=== PATIENT | female | born 1960 | race African-American/Black ===

== ENCOUNTER 2016-07-10 16:27 | Inpatient (IN) ==
--- NOTE | 2016-07-10 17:21 | PROVIDER DOCUMENTATION ---
Addendum entered and electronically signed by Toño Lowe PA 21:22: Progress - CONSULTS/PCP/HOSPITALIST Notification #2 Consult: Dr. Beltrán Time Discussed: 21:22 Consult Disposition: other (Will consult on case in the AM) Original Note: HPI-General Adult - General Source: patient - History of Present Illness -Gen Adult Nature of Presenting Problems: Pt is 56 y/o F presents to the ED with AMS. Pt's mother states change in Pt mental status. Pt's mother states Pt is now breathing through her mouth when she normally breathes through her nose. Pt's mother states Pt slide off of bed side toilet and into floor. Location of Pain/Injury: reports: none Pain Radiation: reports: no radiation Quality of Pain: reports: none Onset/Duration: reports: just prior to arrival Timing: reports: still present Context/Activities at Onset: reports: none Modifying Factors: improves with: nothing Associated Symptoms: reports: diaphoresis, other (pale) Similar Symptoms Previously?: No Recently seen or treated by another doctor?: No <Heather Tavarez - Last Filed: 07/10/16 17:55> <Toño Lowe - Last Filed: 07/10/16 20:45> - General Chief Complaint: Altered Mental Status Stated Complaint: AMS, FALL THIS AM Time Seen by Provider: 07/10/16 16:51 Allergies/Adverse Reactions: Patient Allergies Allergy/AdvReac Type Severity Reaction Status Date / Time latex Allergy Intermediate RASH Verified 07/10/16 16:37 Home Medications: Nortriptyline [Pamelor] 10 mg PEG HS 01/11/14 Aspirin EC 81 mg PEG DAILY 07/22/14 Levetiracetam 100 mg PEG BID 07/22/14 Atropine 1% Ophth Soln 2 drop ORDERED Q4H PRN PRN 04/17/15 Metoclopramide [Reglan Liquid] 5 mg PEG TID 04/17/15 Dextromethorphan HBr/Quinidine [Nuedexta 20-10 mg Capsule] 1 each PEG BID Lisinopril 40 mg PEG BID 03/15/16 Amlodipine Besylate 5 mg PEG BID 04/08/16 Baclofen 10 mg PEG HS 04/08/16 Multivitamins/Minerals [Centrum Tablet] 1 each PEG DAILY 04/08/16 Polyethylene Glycol 3350 [Miralax] 17 gm PEG DAILY 04/08/16 Review of Systems - Adult - REVIEW OF SYSTEMS - ADULT ROS:: unobtainable per condition Constitutional: reports: no symptoms reported Eyes: reports: no symptoms reported Ears, Nose, Mouth & Throat: reports: no symptoms reported Cardiovascular: reports: irregular heart rate (tachy). denies: chest pain, heart murmur Respiratory: reports: no symptoms reported Gastrointestinal: reports: no symptoms reported Genitourinary: reports: no symptoms reported Musculoskeletal: reports: no symptoms reported Integumentary: reports: no symptoms reported Neurological: reports: no symptoms reported Psychiatric: reports: no symptoms reported Endocrine: reports: no symptoms reported Hematologic/Lymphatic: reports: no symptoms reported Allergic/Immunologic: reports: no symptoms reported All Other Systems: Reviewed and Negative <Heather Tavarez - Last Filed: 07/10/16 17:55> Past History - Adult - PAST MEDICAL HISTORY-ADULT Review of Records: reports: Nursing Assessment Review, Medications Reviewed, Social history reviewed & non-contributory. Major Childhood Illnesses: reports: denies history Cardiovascular: reports: HTN, hyperlipidemia Respiratory: reports: denies history Gastrointestinal: reports: GERD Obstetrical/Gynecological: reports: denies history Genitourinary: reports: denies history Musculoskeletal: reports: denies history Neurological: reports: cancer/tumor, CVA, Seizures/Epilepsy Endocrine/Immune: reports: cancer (BRAIN ) Other Conditions: reports: denies history - PRIOR SURGERIES/PROCEDURES Surgical/Procedure History: reports: - IMMUNIZATION STATUS Childhood Immunizations: See Nurse Assessment Flu Vaccine: See Nurse Assessment - FAMILY HISTORY Family History: reviewed, not pertinent - SOCIAL HISTORY Smoking: denies Substance Use: denies Living Situation: family <Heather Tavarez - Last Filed: 07/10/16 17:55> Physical Exam-General - PHYSICAL EXAM-ADULT Initial Vital Signs Reviewed: Yes - CONSTITUTIONAL General Appearance: appears well, alert, no apparent distress - EYES Eyes: PERRL/EOMI, pink conjunctivae, fundi clear, no AV nicking - HEAD, EARS, NOSE, MOUTH & THROAT HENMT: normocephalic/atraumatic, moist mucous membranes, normal ENT inspection, TMs normal, pharynx normal - NECK Neck: non-tender, full range of motion, supple, normal inspection - RESPIRATORY Respiratory: chest non-tender, lungs clear, normal breath sounds, no pleuratic chest pain, no respiratory distress, no accessory muscle use - CARDIOVASCULAR Cardiovascular: normal peripheral pulses, no edema, no gallop, no JVD, no murmur , tachycardia - GASTROINTESTINAL (ABDOMEN) Abdominal Exam: normal bowel sounds, non tender, soft, no organomegaly, no pulsatile mass - LYMPHATIC Lymphatic: no adenopathy - MUSCULOSKELETAL Back Exam: normal inspection, no CVA tenderness, no vertebral tenderness Extremity: normal range of motion, non-tender, normal gait, normal inspection, no pedal edema, no calf tenderness, normal capillary refill, pelvis stable - SKIN Integumentary: normal turgor, warm/dry, pallor - NEUROLOGIC Neurologic: abnormal cerebellar tests, 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, abnormal gait, focal weakness - PSYCHIATRIC Psych/Mental Status: negative: normal mood/affect <Heather Tavarez - Last Filed: 07/10/16 17:55> Progress - PLAN OF CARE/RESULTS Progress/Plan/Lab Results: Orders Category Date Time Status KNEE 1-2 VIEWS-LEFT [RAD] Stat Exams 07/10/16 17:18 Ordered KNEE 1-2 VIEWS-RIGHT [RAD] Stat Exams 07/10/16 17:18 Ordered cxr [CHEST-1 VIEW] [RAD] Stat Exams 07/10/16 17:19 Ordered CBC WITH ELECTRONIC DIFF [HEME] Stat Lab 07/10/16 17:17 Uncollected CMP [COMPREHENSIVE METABOLIC PANEL] [CHEM] Stat Lab 07/10/16 17:17 Uncollected Ddimer [D-DIMER] [CHEM] Stat Lab 07/10/16 17:22 Uncollected UA NIMS W/REFLEX CULT [URINALYSIS] Stat Lab 07/10/16 17:17 Uncollected Vital Signs - 24 hr 07/10/16 16:28 Temperature 97.3 F L Pulse Rate 130 H Respiratory 24 Rate Blood Pressure 96/57 O2 Sat by Pulse 98 Oximetry - CHANGE OF SHIFT REPORT (ED Provider) Report Given and Care Transferred to:: Dr. Poole Time of Transfer: 17:56 Items Pending: Labs, XRAY Results <Heather Tavarez - Last Filed: 07/10/16 17:55> - PLAN OF CARE/RESULTS Progress/Plan/Lab Results: Laboratory Tests 07/10/16 07/10/16 07/10/16 18:30 18:30 18:30 WBC 19.95 H RBC 3.47 L Hgb 8.9 L Hct 30.0 L MCV 86.5 MCH 25.6 L MCHC 29.7 L RDW Std Deviation 16.2 H Plt Count 251 MPV Not Reportable Immature Gran % (Auto) 0.5 Neut % (Auto) 87.3 H Lymph % (Auto) 6.6 L Bowie % (Auto) 5.4 Eos % (Auto) 0.1 Baso % (Auto) 0.1 Immature Gran # (Auto) 0.10 H Neut # (Auto) 17.43 H Lymph # (Auto) 1.32 Bowie # (Auto) 1.08 H Eos # (Auto) 0.01 Baso # (Auto) 0.01 PT INR PTT (Actin FS) D-Dimer > 21.00 H Sodium 145 Potassium 2.9 L Chloride 105 Carbon Dioxide 20 L Anion Gap 20 BUN 21 Creatinine 1.2 H Estimated GFR/1.73 m2 56 BUN/Creatinine Ratio 18 Glucose 184 H Calculated Osmolality 296 Calcium 8.7 L Magnesium Total Bilirubin 0.36 AST 32 H ALT 29 Alkaline Phosphatase 189 H Creatine Kinase Troponin T Total Protein 6.4 Albumin 3.1 L Globulin 3.3 Albumin/Globulin Ratio 0.9 Plasma Lactate 07/10/16 07/10/16 07/10/16 18:30 18:30 18:30 WBC RBC Hgb Hct MCV MCH MCHC RDW Std Deviation Plt Count MPV Immature Gran % (Auto) Neut % (Auto) Lymph % (Auto) Bowie % (Auto) Eos % (Auto) Baso % (Auto) Immature Gran # (Auto) Neut # (Auto) Lymph # (Auto) Bowie # (Auto) Eos # (Auto) Baso # (Auto) PT 12.0 H INR 1.13 PTT (Actin FS) 23.6 D-Dimer Sodium Potassium Chloride Carbon Dioxide Anion Gap BUN Creatinine Estimated GFR/1.73 m2 BUN/Creatinine Ratio Glucose Calculated Osmolality Calcium Magnesium 2.2 Total Bilirubin AST ALT Alkaline Phosphatase Creatine Kinase 106 Troponin T 0.130 H Total Protein Albumin Globulin Albumin/Globulin Ratio Plasma Lactate 07/10/16 18:30 WBC RBC Hgb Hct MCV MCH MCHC RDW Std Deviation Plt Count MPV Immature Gran % (Auto) Neut % (Auto) Lymph % (Auto) Bowie % (Auto) Eos % (Auto) Baso % (Auto) Immature Gran # (Auto) Neut # (Auto) Lymph # (Auto) Bowie # (Auto) Eos # (Auto) Baso # (Auto) PT INR PTT (Actin FS) D-Dimer Sodium Potassium Chloride Carbon Dioxide Anion Gap BUN Creatinine Estimated GFR/1.73 m2 BUN/Creatinine Ratio Glucose Calculated Osmolality Calcium Magnesium Total Bilirubin AST ALT Alkaline Phosphatase Creatine Kinase Troponin T Total Protein Albumin Globulin Albumin/Globulin Ratio Plasma Lactate 7.8 H Orders Category Date Time Status Melissa Cath Insertion ORDERED Care 07/10/16 19:41 Active ANGIOGRAM/PULMONARY ARTERIES [CT] Stat Exams 07/10/16 19:37 Taken HEAD W/O CONTRAST [CT] Stat Exams 07/10/16 17:22 Taken KNEE 1-2 VIEWS-LEFT [RAD] Stat Exams 07/10/16 17:18 Taken KNEE 1-2 VIEWS-RIGHT [RAD] Stat Exams 07/10/16 17:18 Taken cxr [CHEST-1 VIEW] [RAD] Stat Exams 07/10/16 17:19 Taken ABG [RESP] Routine Lab 07/10/16 20:40 Ordered BLOOD CULTURE [BLDCUL] Stat Lab 07/10/16 18:30 Ordered CBC WITH ELECTRONIC DIFF [HEME] Stat Lab 07/10/16 18:30 Completed CK PROFILE [SP CHEM] Stat Lab 07/10/16 18:30 Completed CMP [COMPREHENSIVE METABOLIC PANEL] [CHEM] Stat Lab 07/10/16 18:30 Completed Ddimer [D-DIMER] [CHEM] Stat Lab 07/10/16 18:30 Completed LACTATE, PLASMA [CHEM] Stat Lab 07/10/16 18:30 Completed LACTATE, PLASMA [CHEM] Stat Lab 07/10/16 20:16 Uncollected MAGNESIUM [CHEM] Stat Lab 07/10/16 18:30 Completed PROTIME WITH INR [COAG] Stat Lab 07/10/16 18:30 Completed PTT [COAG] Stat Lab 07/10/16 18:30 Completed TROPONIN T Stat Lab 07/10/16 18:30 Completed UA NIMS W/REFLEX CULT [URINALYSIS] Stat Lab 07/10/16 17:17 Uncollected URINE DRUG SCREEN Stat Lab 07/10/16 18:08 Uncollected 0.9% Sodium Chloride Inj [Ns] 1,000 ml Med 07/10/16 19:45 Active Potassium Chloride 10 meq IV 1,000 mls/hr 0.9% Sodium Chloride Inj [Ns] 1,000 ml Med 07/10/16 17:46 Discontinued IV 999 mls/hr 0.9% Sodium Chloride Inj [Ns] 1,000 ml Med 07/10/16 19:40 Discontinued IV 999 mls/hr Piperacil/Tazobact 3.375 gm/Ns [Zosyn 3.375 gm/Ns] 50 Med 07/10/16 19:40 Discontinued ml IV NOW Vancomycin 1 gm/Ns 250 ml Med 07/10/16 19:40 Discontinued IV NOW Vital Signs Temp Pulse Resp BP Pulse Ox 07/10/16 20:32 106 H 18 86/72 99 07/10/16 17:25 121 H 16 96/57 98 07/10/16 16:28 97.3 F L 130 H 24 96/57 98 latex Allergy (Intermediate, Verified 07/10/16 16:37) RASH Nortriptyline [Pamelor] 10 mg PEG HS 01/11/14 Aspirin EC 81 mg PEG DAILY 07/22/14 Levetiracetam 100 mg PEG BID 07/22/14 Atropine 1% Ophth Soln 2 drop ORDERED Q4H PRN PRN 04/17/15 Metoclopramide [Reglan Liquid] 5 mg PEG TID 04/17/15 Dextromethorphan HBr/Quinidine [Nuedexta 20-10 mg Capsule] 1 each PEG BID Lisinopril 40 mg PEG BID 03/15/16 Amlodipine Besylate 5 mg PEG BID 04/08/16 Baclofen 10 mg PEG HS 04/08/16 Multivitamins/Minerals [Centrum Tablet] 1 each PEG DAILY 04/08/16 Polyethylene Glycol 3350 [Miralax] 17 gm PEG DAILY 04/08/16 Omeprazole/Sodium Bicarbonate [Zegerid 40 mg Packet] 1 each PO DAILY #30 packet 04/09/16 I&O 07/09/16 07/10/16 07/11/16 06:59 06:59 06:59 Output Total 0 Balance 0 Laboratory 07/10/16 07/10/16 07/10/16 18:30 18:30 18:30 WBC RBC Hgb Hct MCV MCH MCHC RDW Std Deviation Plt Count MPV Immature Gran % (Auto) Neut % (Auto) Lymph % (Auto) Bowie % (Auto) Eos % (Auto) Baso % (Auto) Immature Gran # (Auto) Neut # (Auto) Lymph # (Auto) Bowie # (Auto) Eos # (Auto) Baso # (Auto) PT 12.0 H INR 1.13 PTT (Actin FS) 23.6 D-Dimer Sodium Potassium Chloride Carbon Dioxide Anion Gap BUN Creatinine Estimated GFR/1.73 m2 BUN/Creatinine Ratio Glucose Calculated Osmolality Calcium Magnesium Total Bilirubin AST ALT Alkaline Phosphatase Creatine Kinase Troponin T 0.130 H Total Protein Albumin Globulin Albumin/Globulin Ratio Plasma Lactate 7.8 H 07/10/16 07/10/16 07/10/16 18:30 18:30 18:30 WBC RBC Hgb Hct MCV MCH MCHC RDW Std Deviation Plt Count MPV Immature Gran % (Auto) Neut % (Auto) Lymph % (Auto) Bowie % (Auto) Eos % (Auto) Baso % (Auto) Immature Gran # (Auto) Neut # (Auto) Lymph # (Auto) Bowie # (Auto) Eos # (Auto) Baso # (Auto) PT INR PTT (Actin FS) D-Dimer > 21.00 H Sodium 145 Potassium 2.9 L Chloride 105 Carbon Dioxide 20 L Anion Gap 20 BUN 21 Creatinine 1.2 H Estimated GFR/1.73 m2 56 BUN/Creatinine Ratio 18 Glucose 184 H Calculated Osmolality 296 Calcium 8.7 L Magnesium 2.2 Total Bilirubin 0.36 AST 32 H ALT 29 Alkaline Phosphatase 189 H Creatine Kinase 106 Troponin T Total Protein 6.4 Albumin 3.1 L Globulin 3.3 Albumin/Globulin Ratio 0.9 Plasma Lactate 07/10/16 18:30 WBC 19.95 H RBC 3.47 L Hgb 8.9 L Hct 30.0 L MCV 86.5 MCH 25.6 L MCHC 29.7 L RDW Std Deviation 16.2 H Plt Count 251 MPV Not Reportable Immature Gran % (Auto) 0.5 Neut % (Auto) 87.3 H Lymph % (Auto) 6.6 L Bowie % (Auto) 5.4 Eos % (Auto) 0.1 Baso % (Auto) 0.1 Immature Gran # (Auto) 0.10 H Neut # (Auto) 17.43 H Lymph # (Auto) 1.32 Bowie # (Auto) 1.08 H Eos # (Auto) 0.01 Baso # (Auto) 0.01 PT INR PTT (Actin FS) D-Dimer Sodium Potassium Chloride Carbon Dioxide Anion Gap BUN Creatinine Estimated GFR/1.73 m2 BUN/Creatinine Ratio Glucose Calculated Osmolality Calcium Magnesium Total Bilirubin AST ALT Alkaline Phosphatase Creatine Kinase Troponin T Total Protein Albumin Globulin Albumin/Globulin Ratio Plasma Lactate Will admit for sepsis. - XRAY 1 XRAY: Right XRAY Study: Knee XRAY Interpretation: distal femur fx 2 XRAY: Left XRAY Study: Knee XRAY Interpretation: proximal tibial fx 3 XRAY Study: Chest XRAY Interpretation: nad - CT/MRI 1 CT Study: Head Comparison with other Films: no changes CT Results: NAP 2 CT Study: Thorax CT Results: Mild atelectasis; no PE - CONSULTS/PCP/HOSPITALIST Notification #1 *Consult/PCP/Hospitalist*: Dr. Mendez Time Discussed: 20:43 Consult Disposition: Admit <Toño Lowe - Last Filed: 07/10/16 20:45> Departure <Heather Tavarez - Last Filed: 07/10/16 17:55> - Departure Time of Disposition Order: 20:43 Certified Medical Emergency: Emergent <Toño Lowe - Last Filed: 07/10/16 20:45> - Departure DIAGNOSIS: Sepsis Qualifiers: Sepsis type: sepsis due to unspecified organism Qualified Code(s): A41.9 - Sepsis, unspecified organism Altered mental state Qualifiers: Altered mental status type: unspecified Qualified Code(s): R41.82 - Altered mental status, unspecified Femur fracture, right Qualifiers: Encounter type: initial encounter Femur location: distal Fracture type: closed Fracture morphology: unspecified fracture morphology Qualified Code(s): S72.401A - Unspecified fracture of lower end of right femur, initial encounter for closed fracture Tibial plateau fracture, left Qualifiers: Encounter type: initial encounter Fracture type: closed Qualified Code(s): S82.142A - Displaced bicondylar fracture of left tibia, initial encounter for closed fracture Disposition: ADMITTED INPATIENT 09 Condition: Stable Attestation - Scribe Verification/Attestation Scribe:: Heather Tavarez Acting as Scribe for:: Rm Breaux Scribe documention review:: This chart was documented by a scribe and accurately reflects the service the provider performed and the decisions made by the provider. - Scribe Verification/Attestation #2 Shift Change Time: 17:56 Scribe Name: Rita Abdalla Acting as Scribe for:: Hudson Rickey Lis <Heather Tavarez - Last Filed: 07/10/16 17:55> - Physician/ CORINA Attestation Patient care was provided by Advanced Practice Provider:: Yes Advanced Practice Provider:: Toño Lowe Advanced Practice Provider documentation review:: The Mid-level provider documentation, treatment plan and medical decision making was reviewed by the physician who agrees with all treatment and medical decision making by the MLP. The physician spent face to face time with patient:: Yes <Toño Lowe - Last Filed: 07/10/16 20:45> Physician Attestation
[2016-07-10] MEDS ORDERED: NS 1,000 ML IV ONE ×3 (17:46→22:46)
[2016-07-10 18:59] LABS: BASO% 0.1 % (0.0-0.8); EOS# 0.01 X1000 (0.0-0.7); EOS% 0.1 % (0.0-10.0); HEMOGLOBIN 8.9 g/dL (12.0-16.0); IMM GRAN% 0.5 % (0.0-0.5); LYMPH# 1.32 X1000 (1.2-3.4); LYMPH% 6.6 % (20.5-51.1); MANUAL DIFF NEEDED? NO; MCH 25.6 PG (27-31); MCHC 29.7 g/dL (33-37); MCV 86.5 FL (81-99); MONO# 1.08 X1000 (0.11-0.59); MONO% 5.4 % (1.7-9.3); NEUT% 87.3 % (42.2-75.2); PLT 251 X1000 (130-400); RBC 3.47 XMIL (4.2-5.4)
[2016-07-10 19:10] LABS: INR 1.13; PTT 23.6 Seconds (22.0-36.0)
[2016-07-10 19:13] LABS: ALBUMIN 3.1 g/dL (3.5-5.0); CALCIUM 8.7 mg/dL (8.8-10.2); POTASSIUM 2.9 mmol/L (3.5-5.1); TOTAL BILIRUBIN 0.36 mg/dL (0.20-1.00); TOTAL PROTEIN 6.4 g/dL (6.3-8.3)
[2016-07-10 19:14] LABS: MAGNESIUM 2.2 mg/dL (1.5-2.7)
[2016-07-10] MEDS ORDERED: VANCOMYCIN 1 GM/NS 250 ML IV ONE (19:40)
[2016-07-10] MEDS ORDERED: ZOSYN 3.375 GM/NS 50 ML IV ONE (19:40)
[2016-07-10] MEDS ORDERED: POTASSIUM CHLORIDE 10 MEQ in NS 1,000 ML IV SCH (19:45)
[2016-07-10 21:27] LABS: ALLEN TEST YES; BE -1.2 mmoll (-3.0-3.0); BLOOD TYPE ARTERIAL; DRAW SITE R RADIAL; METHB 1.7 % (0.0-1.5); PCO2(98.6) 22 mmHg (35-45); PO2(98.6) 135 mmHg (60-100); SAMPLE BLOOD; SAO2 99.5 % (95.0-100.0); THB 7.9 g/dL (11.5-17.4)
[2016-07-10 21:29] LABS: MODALITY ROOM AIR
[2016-07-10 21:30] LABS: pH(98.6) 7.57 (7.35-7.45)
[2016-07-10 21:31] LABS: BILIRUBIN URINE NEGATIVE (NEGATIVE); BLOOD URINE TRACE-INTACT (NEGATIVE); CLARITY SLIGHTLY CLOUDY (CLEAR); COLOR YELLOW; GLUCOSE URINE NEGATIVE (NEGATIVE); LEUKOCYTES URINE NEGATIVE (NEGATIVE); NITRITE URINE NEGATIVE (NEGATIVE); PH URINE 5.5; PROTEIN URINE 100 mg/dL (NEGATIVE); SP GRAVITY URINE 1.015; URINE SOURCE CATH
[2016-07-10 21:35] LABS: URINE CULTURE NEEDED? YES; URINE RBC <10 /HPF (<10)
[2016-07-10 21:36] LABS: URINE EPITHELIAL CELLS >10 /HPF (<10)
[2016-07-10 21:46] LABS: UR AMPHETAMINES QUAL NONE DETECTED (NONE DETECT); UR BARBITUATES QUAL NONE DETECTED (NONE DETECT); UR BENZODIAZEPIN QUAL NONE DETECTED (NONE DETECT); UR CANNABINOIDS QUAL NONE DETECTED (NONE DETECT); UR COCAINE QUAL NONE DETECTED (NONE DETECT); UR METHADONE QUAL NONE DETECTED (NONE DETECT); UR OPIATES QUAL NONE DETECTED (NONE DETECT); UR OXYCODONE QUAL NONE DETECTED (NONE DETECT); UR PCP QUAL NONE DETECTED (NONE DETECT)
--- NOTE | 2016-07-10 22:20 | HISTORY AND PHYSICAL ---
PRIMARY CARE PHYSICIAN: Felton Ferguson Jr., MD REASON FOR ADMISSION: Diaphoresis, weakness and pallor. HISTORY OF PRESENT ILLNESS: Ms. Nancy Jean-Baptiste is a 56-year-old lady with past medical history of prior brain cancer status post surgery, postop seizures, postop CVA, hypertension, who is pretty much nonverbal and contracted. The patient was brought in today by her mother with an ambulance because the mother reports that the patient's paid caregiver stated that shortly after transferring the patient from bed to a bedside commode, the patient slid and fell and landed on her knee. By the time the mother got there, she noted her daughter was on her back and they managed to get a Erick lift to get her back on the bed. Shortly thereafter, she noted her daughter was diaphoretic and very pale and she called one of her friends to confirm her suspicious that something was off. When her friend came by, she noted that she concurred with the mother's assessment and they got the EMS to bring her in. Unfortunately, the patient is unable to verbalize her complaints, but she was diaphoretic, pale and also tachypneic when she came in. Her initial blood pressure was 96/57, heart rate of 121, temperature is 97.3 degrees, respiratory rate was 16. Her O2 saturation was 98%. REVIEW OF SYSTEMS: Could not be obtained for obvious reasons due to the patient's cognitive and verbal status. Mother denies any shortness of breath or cough or diarrhea or blood loss from any site. She did notice, however that before they called EMS that both of the patient's knees were swollen, which the left greater than the right. This concerned the, also. ALLERGIES: Latex. MEDICATIONS: Per her old records, she is on Pamelor 10 mg at bedtime, aspirin 81 mg daily, Keppra 100 mg via PEG tube, atropine ophthalmic eyedrops 2 drops as needed, Reglan 5 mg t.i.d., Norvasc 5 mg b.i.d., lisinopril 40 mg b.i.d., Zegerid 2/40 mg daily, MiraLAX 17 g daily, multivitamin tablets once a day, Bactrim 10 mg at bedtime, and Nuedexta 1 capsule a day. FAMILY HISTORY: Notable for type 2 diabetes in first-degree relatives. No heart disease or cancer. PAST SURGICAL HISTORY: She has had a tumor resection. She has had a herniorrhaphy. PEG tube placement. Cholecystectomy. SOCIAL HISTORY: Does not smoke, drink, or do drugs. Cared for by mother, lives with the mother, totally dependent. LABORATORY WORK: EKG shows sinus tachycardia, LVH. D-dimer was greater than 21. CT abdomen showed atelectasis. Initial lactate was 7.8. Repeat lactate 2 hours was 4.5, PTT is normal. Potassium 2.9. BUN was 20, creatinine 1.2, glucose 184. AST 32, ALT 29, alkaline phosphatase 189, CK is 106, but troponin 0.130. Albumin 3.1, white count 19,009, hemoglobin and hematocrit 9 and 30, platelets 251,000. X-ray showed a right distal femoral fracture and a left proximal tibial plateau fracture. Urinalysis is pending. Blood cultures were drawn. PHYSICAL EXAMINATION: VITAL SIGNS: Blood pressure currently is 160/60, heart rate 106, respirations 18, 99% on room air. GENERAL: She is a middle-aged woman who is nonverbal, laying in bed. Not visually in acute distress. HEENT: Head is normocephalic, atraumatic. She has a flat affect. Her color relatively pale. Eyes, SUSHMA, EOMI. She is anicteric and conjunctivae pale. ENT and oropharyngeal exam could not really assess because patient did not open her mouth, but no signs of cyanosis visualized. I could not really see any exudates at the tip of her tongue. NECK: Supple. No JVD or carotid bruit. No thyromegaly. CHEST: Clear to auscultation. Good air flow from both lung roberson. CARDIOVASCULAR: 1st and 2nd heart sounds heard. No gallops, murmurs, rubs. Rhythm is regular. ABDOMEN: Scaphoid, soft with a PEG tube in the epigastric area. No surrounding erythema or exudates from the PEG tube insertion site. No mass is appreciated. Bowel sounds are hypoactive. RECTAL: Deferred. EXTREMITIES: Slightly some swelling of both knees, left greater than right. No areas of erythema and no excessive warmth. Her distal aspects of her extremities are cooler without pulses distally in lower extremities and they are symmetrical. No color discoloration or cyanosis noted. No clubbing noted. No edema noted. She has a left flexion contracture of the elbow of her left upper extremity and contractures of her left hand. There is an extension contracture of her right upper extremity and she has what appears to be pes cavus of both feet. NEUROLOGICAL: Patient does have a profound left-sided hemiplegia. I did not do a thorough exam because of the patient's fractures and I not want to destabilize them. SKIN: No skin breakdown although I did not examine her sacral area on her back. MUSCULOSKELETAL: See above. ASSESSMENT: 1. Septic shock versus hemorrhagic shock. 2. Hypokalemia. 3. Hypertension. 4. Iatrogenic seizures. 5. History of multiple strokes. 6. Right femoral fracture distal. 7. Left proximal tibial fracture. 8. Possible hemorrhagic anemia. 9. Early acute kidney injury. PLAN: So far unable to get any urine from the patient and we will evaluate this for possible infection. In the interim we will start on broad-spectrum antibiotics i.e. vancomycin and Zosyn. We will do complete blood count, lactate and troponin in 4 hours and modify treatment accordingly depending on our findings. If hematocrit is less than 30, we will transfuse at least 1 unit. Her last hematocrit was 44 in early May. I suspect this patient may have more of a hemorrhagic picture than a septic picture based on the fact that she has bilateral fractures. Her blood pressure has responded very well to boluses and the troponin noted but could have been due to severe coronary insufficiency from hemorrhage from the fractures. She is also notably pale according to the mother and this picture seems to be more of a hemorrhagic picture. I will consult orthopedist, Dr. Beltrán to be notified by the emergency room team about this patient and he will probably see her in the morning. Deep venous thrombosis prophylaxis will be with Sequential Compression Devices as anticoagulants are relatively contraindicated in this patient. We will also check a cortisol level to see if patient has relative adrenal insufficiency to stress. Continue her Keppra by her percutaneous endoscopic gastrostomy tube. Discontinue aspirin for now. CRITICAL CARE TIME: 40 minutes. I spent most of the time answering the mother's questions who is understandably nervous.
[2016-07-10] MEDS ORDERED: VANCOMYCIN IV PER PHARMACY MISC SCH (22:46)
[2016-07-10] MEDS ORDERED: ZOFRAN IV PRN (22:46)
--- NOTE | 2016-07-10 23:50 | ED EKG INTERP ---
EKG Interpretation - EKG Time of EKG reading by physician:: 20:20 EKG Read and Signed by:: Hudson Poole EKG Interpretation (*Must complete 3 of following elements*): Abnormal Rate: 108 Rhythm: sinus tachycardia ST Wave: non-specific ST changes Attestation - Scribe Verification/Attestation Scribe:: Rita Abdalla Acting as Scribe for:: Hudson Poole Scribe documention review:: This chart was documented by a scribe and accurately reflects the service the provider performed and the decisions made by the provider. Physician Attestation - Physician Attestation I, the provider, attest to the following statement:: Hudson Poole Physician documentation Attestation:: This documentation recorded by the scribe accurately reflects the service I personally performed and the decisions made by me.
[2016-07-11] MEDS ORDERED: VANCOMYCIN 650 MG in NS 250 ML IV ONE (02:00)
[2016-07-11 02:27] LABS: HEMATOCRIT 23.3 % (37.0-47.0); MCH 25.5 PG (27-31); PLT 171 X1000 (130-400); RBC 2.74 XMIL (4.2-5.4)
[2016-07-11] MEDS: ZOSYN 3.375 GM/NS 50 ML IV SCH ×4 (04:06→20:16)
--- NOTE | 2016-07-11 06:01 | EKG Report ---
Test Performed on : 07/10/2016 8:20:26 PM Test Reason : No order in [facility] Blood Pressure : / mmHG Vent. Rate : 108 BPM Atrial Rate : 108 BPM P-R Int : 130 ms QRS Dur : 068 ms QT Int : 406 ms P-R-T Axes : 036 027 014 degrees QTc Int : 544 ms Sinus tachycardia. Nonspecific ST and T wave abnormality Abnormal ECG When compared with ECG of 05-JUN-2015 10:08, T wave inversion no longer evident in Anterior leads QT has lengthened Unconfirmed Result
--- NOTE | 2016-07-11 07:54 | CONSULTATION ---
DATE OF CONSULTATION: 07/11/2016 CHIEF COMPLAINT: Fall. HISTORY OF PRESENT ILLNESS: Ms. Reed is a 56-year-old female who presented to the emergency department last night after she had slipped and fallen out of her bed. Family brought her up. She was found to be septic, so she was admitted to the ICU and sepsis protocol was initiated. I also x-rayed her knees since she fell on her knees when the incident happened and she has fractures of bilateral knees and that is why Orthopedics was consulted. Unfortunately, Ms. Reed does not communicate and so she really does not answer any questions and there was no family at bedside this morning when I was there. PAST MEDICAL HISTORY: Brain tumor, previous strokes. PAST SURGICAL HISTORY: G tube. MEDICATIONS: Per the MAR. ALLERGIES: Latex. FAMILY HISTORY: Unable to be obtain. REVIEW OF SYSTEMS: Unable to be obtained. SOCIAL HISTORY: Unable to be obtained. PHYSICAL EXAMINATION: General: A middle-aged female lying in bed, no acute distress. She does not respond to verbal stimuli. Head and Neck: Appears normocephalic, atraumatic. Respirations: Nonlabored. Cardiovascular: Regular rate. Abdomen: Nondistended. Extremity: Bilateral lower extremity exam, looking at her knees, both of them are swollen. She really does not grimace or wince when I palpated around the knees. She does not follow commands to move her toes or to tell me if she can feel sensation, so that part of the physical exam I cannot do. She did have a 2+ DP pulse bilaterally. Her ankles are somewhat plantar flexed. IMAGING: Imaging shows on the right knee, she has a supracondylar femur fracture that is mildly displaced. Overall joint line looks good. Left knee films show a proximal tibia fracture with more of a plateau but the joint line itself looks good and that is minimally displaced. ASSESSMENT: 1. Right supracondylar femur fracture. 2. Left tibial plateau fracture. PLAN: Gathering some history from the nurse and also from the chart, it seems like Ms. Reed really does not weightbear at all. She has to have her family to help lift her to use the bathroom and she really does not follow any commands at this point either. So, since she is a non- ambulator, I would rather treat this nonoperatively. I think she can heal in where she is. So we are going to do bilateral knee immobilizers and then we will continue to monitor things.
[2016-07-11 08:07] LABS: BASO% 0.1 % (0.0-0.8); EOS# 0.02 X1000 (0.0-0.7); EOS% 0.2 % (0.0-10.0); HEMATOCRIT 28.9 % (37.0-47.0); HEMOGLOBIN 8.9 g/dL (12.0-16.0); IMM GRAN# 0.02 X1000 (0.0-0.04); IMM GRAN% 0.2 % (0.0-0.5); LYMPH# 1.71 X1000 (1.2-3.4); LYMPH% 20.9 % (20.5-51.1); MANUAL DIFF NEEDED? YES; MCH 26.6 PG (27-31); MCHC 30.8 g/dL (33-37); MCV 86.3 FL (81-99); MONO# 0.74 X1000 (0.11-0.59); NEUT% 69.6 % (42.2-75.2); PLT 113 X1000 (130-400); RBC 3.35 XMIL (4.2-5.4)
--- NOTE | 2016-07-11 08:20 | Diag Imaging Result Document ---
PROCEDURE NAME: CHEST-1 VIEW - 07/10/2016 AP CHEST: FINDINGS: There are calcified nodes in the right tracheobronchial region. There is no evidence of acute cardiac or pulmonary disease and compared with the previous study of 06/15/2015 there has been no significant change in the appearance of the chest. IMPRESSION: No acute disease.
--- NOTE | 2016-07-11 08:22 | Diag Imaging Result Document ---
PROCEDURE NAME: KNEE 1-2 VIEWS-RIGHT - 07/10/2016 RIGHT KNEE, TWO VIEWS: FINDINGS: There is a supracondylar impacted fracture of the distal femur. There is generalized osteopenia. IMPRESSION: Fracture, distal femur.
--- NOTE | 2016-07-11 08:25 | Diag Imaging Result Document ---
PROCEDURE NAME: KNEE 1-2 VIEWS-LEFT - 07/10/2016 LEFT KNEE, TWO VIEWS: FINDINGS: There is a spiral fracture of the distal shaft of the femur, which appears to extend to the midshaft. There is more displacement in the midshaft region on the lateral view. There is also an apparent impacted fracture of the medial, and possibly the lateral tibial plateau. There is generalized osteopenia. IMPRESSION: Fracture of the femur, as well as the proximal tibia.
--- NOTE | 2016-07-11 08:28 | Diag Imaging Result Document ---
PROCEDURE NAME: ANGIOGRAM/PULMONARY ARTERIES - 07/10/2016 CT ANGIOGRAM PULMONARY ARTERIES WITH CONTRAST: Exam performed with intravenous contrast. A dose- reduction protocol was used. Axial and reformatted coronal images are obtained. COMPARISON: No comparison exam. FINDINGS: There are no filling defects identified in the pulmonary arteries. There is no indication of aortic dissection. There are right upper lobe calcified granuloma and large partially calcified mediastinal lymph nodes which are compatible with old granulomatous disease. There is dependent atelectasis of the bilateral lower lobes. There is no consolidation, pleural effusion, or pneumothorax identified. There is substantial enlargement of the right thyroid lobe with heterogeneous density pattern. This displaces the trachea to the left at the lower neck and thoracic inlet. IMPRESSION: 1. No evidence of pulmonary embolism. 2. Old granulomatous disease. Dependent atelectasis at bilateral lower lobes. No evidence of pneumonia. 3. Enlarged right thyroid lobe which displaces the trachea to the left at the lower back and thoracic inlet. The on-call radiologist provided preliminary results at 8:29 p.m. on 07/10/2016. [email or web address]
[2016-07-11 08:29] LABS: BANDS 2 % (0-1); LYMPHS 20 % (21-51); MONO 10 % (1-9)
[2016-07-11 08:48] LABS: AGAP 12; ALBUMIN 2.8 g/dL (3.5-5.0); ALKALINE PHOSPHATASE 153 U/L (32-104); BUN 21 mg/dL (8-22); CALCIUM 7.8 mg/dL (8.8-10.2); CHLORIDE 113 mmol/L (98-107); COSMO 294; GOT 37 U/L (10-30); GPT 29 U/L (10-36); POTASSIUM 3.9 mmol/L (3.5-5.1); SODIUM 145 mmol/L (136-145); TCO2 20 mmol/L (25-35); TOTAL BILIRUBIN 0.39 mg/dL (0.20-1.00); TOTAL PROTEIN 5.8 g/dL (6.3-8.3)
--- NOTE | 2016-07-11 10:16 | PROGRESS NOTE ---
DATE: 07/11/2016 SUBJECTIVE: The patient is not talking this morning. She does not talk much anyway from her previous brain injury. Apparently had a fall yesterday. Was brought to the emergency room. She has a urinary tract infection and a high D-dimer. Studies did not show pulmonary embolism. I will repeat her D-dimer to see if it was an error. She also, with her fall, apparently had a fracture of the left femur, which is a spiral fracture of the distal femur extending up to the mid shaft with a proximal tibia fracture as well. On the right side, there is supracondylar impacted fracture of the distal femur. OBJECTIVE: Vital Signs: Blood pressure 117/67, respirations 22, pulse 113, temperature 98 degrees Fahrenheit. HEENT: She is normocephalic. Lungs: Clear to auscultation and percussion without rhonchi, rales, or wheezes. Heart: Regular rate and rhythm without murmurs, gallops, or friction rubs. Abdomen: Soft. Active bowel sounds. No organomegaly or tenderness. Neurological: Examination unchanged. IMPRESSION AND PLAN: She does have a seizure disorder. She is on Keppra. She has been started on intravenous Zosyn and vancomycin. Orthopedics has been consulted.
[2016-07-11] MEDS: KEPPRA LIQUID PEG SCH ×2 (10:35→20:15)
--- NOTE | 2016-07-11 11:19 | Diag Imaging Result Document ---
PROCEDURE NAME: HEAD W/O CONTRAST - 07/10/2016 CT HEAD WITHOUT CONTRAST: A dose-reduction protocol was used. Compared with 03/15/2016. FINDINGS: There is a ventricular shunt catheter with its tip near the superior margin of the 3rd ventricle, similar to the previous exam. The ventricular system is mildly prominent, similar to the previous exam. There are chronic basal ganglia/thalamic calcifications, similar to the previous exam. There are chronic ischemic changes similar to the previous exam. There is no indication of recent infarct, although acute infarcts may not be immediately visible. There is no evidence of intracranial hemorrhage, mass effect, or midline shift. There is no skull fracture. The skull is possibly osteopenic. IMPRESSION: Stable chronic changes compared to 03/15/2016. No evidence of intracranial injury. No hemorrhage or mass effect. The on-call radiologist provided preliminary results at 7:35 p.m. on 07/10/2016.
--- NOTE | 2016-07-11 14:16 | ECHO REPORT ---
ORDER DATE: 07/11/2016 INTERPRETING PHYSICIAN: Dr. Abhay Ta ECHOCARDIOGRAPHIC MEASUREMENTS: Interventricular septum: 0.8 cm. Left ventricular posterior wall: 0.8 cm. Diastolic diameter: 4 cm. Left atrium: 3.2 cm. Aortic root: 2.7 cm. SUMMARY OF THE 2-DIMENSIONAL IMAGIN. Normal left ventricular cavity size. Estimated ejection fraction of 65%. 2. Sinus tachycardia was noted. 3. Aortic valve leaflets are trileaflet. Mitral valve was normal. 4. Tricuspid valve was normal. Pulmonic valve was normal. 5. Peak velocity across the aortic valve less than 2 m/sec. There is no aortic stenosis. There is mild aortic regurgitation. There is trace to mild mitral regurgitation. Mild tricuspid regurgitation. Peak velocity across the tricuspid valve was 3 m/sec. Pulmonary artery systolic pressure of 46 mmHg. 6. There is no pericardial effusion or obvious intracardiac mass or thrombus seen. Technically suboptimal study. Poor apical windows.
[2016-07-11] MEDS ORDERED: NS 1,000 ML ONE (14:31)
[2016-07-11] MEDS: NS 1,000 ML IV SCH (16:34)
--- NOTE | 2016-07-11 16:57 | SEPSIS: TISSUE PERFUSION ASSMT ---
Sepsis: Tissue Perfusion Assoh - Physical Exam Assessment Date: 07/10/16 Time Assessment Initialized: 22:30 Vital Signs: Last Vital Signs Temp 97.7 F 07/11/16 12:00 Pulse 117 H 07/11/16 12:00 Resp 24 07/11/16 12:00 BP 143/85 07/11/16 12:00 Pulse Ox 99 07/11/16 12:00 Height 5 ft 3 in Weight 147 lb 14.4 oz Lung Sounds:: lungs clear Heart Sounds:: Regular Capillary Refill Time: Less Than 2 Seconds Peripheral Pulse Evaluation:: radial (R): 1+, radial (L): 1+, dorsalis-pedis (R) : 1+, dorsalis-pedis (L): 1+, posterior tibialis (R): 1+, posterior tibialis (L) : 1+ Skin Exam:: pale
[2016-07-12] MEDS: ZOSYN 3.375 GM/NS 50 ML IV SCH ×4 (03:35→20:36)
[2016-07-12] MEDS: NS 1,000 ML IV SCH ×3 (03:37→17:32)
[2016-07-12 06:24] LABS: BASO% 0.1 % (0.0-0.8); EOS# 0.06 X1000 (0.0-0.7); EOS% 0.8 % (0.0-10.0); HEMATOCRIT 22.2 % (37.0-47.0); HEMOGLOBIN 6.6 g/dL (12.0-16.0); IMM GRAN# 0.02 X1000 (0.0-0.04); IMM GRAN% 0.3 % (0.0-0.5); LYMPH# 1.38 X1000 (1.2-3.4); LYMPH% 19.5 % (20.5-51.1); MANUAL DIFF NEEDED? YES; MCHC 29.7 g/dL (33-37); MCV 87.4 FL (81-99); MONO# 0.61 X1000 (0.11-0.59); MONO% 8.6 % (1.7-9.3); NEUT% 70.7 % (42.2-75.2); PLT 93 X1000 (130-400); RBC 2.54 XMIL (4.2-5.4)
[2016-07-12 07:00] LABS: AGAP 9; BUN 15 mg/dL (8-22); CALCIUM 7.7 mg/dL (8.8-10.2); CHLORIDE 115 mmol/L (98-107); COSMO 296; POTASSIUM 2.9 mmol/L (3.5-5.1); SODIUM 147 mmol/L (136-145); TCO2 23 mmol/L (25-35)
[2016-07-12 07:13] LABS: LYMPHS 26 % (21-51); MONO 2 % (1-9)
--- NOTE | 2016-07-12 08:47 | PROGRESS NOTE ---
DATE: 07/12/2016 SUBJECTIVE: Ms. Reed is lying in bed this morning. Still not really responding at all. She is opening and closing her eyes, but she does not respond to voice command. OBJECTIVE: Bilateral lower extremity exam: Knees is still swollen overall. No skin ulcerations or abrasions seen around the knees. ASSESSMENT: Bilateral knee fractures. PLAN: I am going to get Ms. Reed in the bilateral knee immobilizers to keep these straight. She is a non-ambulator as far as I can gather information. So, we will let this heal in on its own. We will continue to follow.
[2016-07-12] MEDS: KEPPRA LIQUID PEG SCH ×2 (08:56→20:36)
[2016-07-12] MEDS ORDERED: NS 500 ML IV ONE (09:16)
--- NOTE | 2016-07-12 09:39 | PROGRESS NOTE ---
DATE: 07/12/2016 SUBJECTIVE: Patient is not responding. She has her eyes open, but is not speaking. OBJECTIVE: Vital Signs: Blood pressure 164/81, respirations 21, pulse 119, temperature 97.6 degrees Fahrenheit. HEENT: She is normocephalic. Lungs: Sound clear to auscultation and percussion without rhonchi, rales, or wheezes. Heart: Regular rate rhythm without murmurs, gallops, or friction rubs. Abdomen: Soft. Active bowel sounds without organomegaly or tenderness. Extremities: Does have a little bruising in her left hamstring area. LABS: Hemoglobin has dropped to 6.6 with hematocrit 22.2. White count 7090. She has a coagulase- negative Staph growing in her bloodstream on 1 blood culture. She is on antibiotics. Potassium is 2.9, sodium 147, calcium is a little low at 7.7. Feedings have been started. She did have 10- 20 WBCs/HPF on her urinalysis on the 1st. ASSESSMENT: 1. Bilateral femur fractures. Orthopedics recommends letting this heal on its own. 2. Anemia. 3. Hypokalemia. 4. Urinary tract infection. 5. Sepsis. PLAN: We will correct potassium and will transfuse.
[2016-07-12 09:44] LABS: PREALBUMIN 11.5 mg/dL (20-40)
[2016-07-12] MEDS: POTASSIUM CHLORIDE 60 MEQ in NS 500 ML IV SCH ×2 (10:23→17:34)
[2016-07-12] MEDS ORDERED: NS 500 ML ONE (12:46)
[2016-07-12] MEDS: TYLENOL PO PRN (12:48)
[2016-07-12] MEDS ORDERED: VANCOMYCIN 1,300 MG in NS 250 ML IV SCH (13:00)
[2016-07-12 13:07] LABS: URINE SOURCE CATH
[2016-07-12] MEDS: VANCOMYCIN 1,300 MG in NS 250 ML IV SCH (13:07)
[2016-07-12 13:10] LABS: BILIRUBIN URINE NEGATIVE (NEGATIVE); BLOOD URINE SMALL (NEGATIVE); COLOR YELLOW; GLUCOSE URINE NEGATIVE (NEGATIVE); LEUKOCYTES URINE TRACE (NEGATIVE); NITRITE URINE NEGATIVE (NEGATIVE); PH URINE 5.5; PROTEIN URINE NEGATIVE (NEGATIVE); SP GRAVITY URINE 1.019; TURBIDITY URINE TURBID (CLEAR); URINE MICRO REVIEW NEEDED? YES; UROBILINOGEN URINE NORMAL (NORMAL)
[2016-07-12 13:30] LABS: UR EPITHELIAL CELLS <10 /HPF (<10); URINE BACTERIA NEGATIVE /HPF; URINE CULTURE NEEDED? YES; URINE RBC <10 /HPF (<10); URINE WBC <10 /HPF (<10)
[2016-07-12 14:19] LABS: URINE CRYSTALS URIC ACID PRESENT
--- NOTE | 2016-07-12 18:17 | CONSULTATION ---
DATE OF CONSULTATION: 07/12/2016 REFERRING PHYSICIAN: Felton Ferguson MD. INDICATION FOR CONSULTATION: Anemia. HISTORY OF PRESENT ILLNESS: The patient is a 56-year-old, female, who is followed in our clinic. She is on lifelong tube feedings due to dysphagia, epilepsy, recurrent aspiration pneumonia and failure to thrive. Unfortunately, she sustained a fall in her home while being assisted to the toilet. She sustained bilateral hip fractures. Since admission, her hemoglobin has dropped dramatically to 6.6 with a hematocrit of 22.2. Although her stools are heme negative, we were asked to perform endoscopic evaluation. PAST MEDICAL HISTORY: 1. Brain cancer. 2. Hypertension. 3. Seizures. 4. Cerebral palsy. 5. Depression. 6. Gastroduodenitis. 7. Hiatal hernia. 8. History of colon polyps. 9. Bilateral hip fractures. PAST SURGICAL HISTORY: 1. Brain surgery. 2. Gastrostomy tube placement. 3. Multiple gastrostomy tube replacements. 4. [employer] shunt. ALLERGIES: Latex. HOME MEDICATIONS: 1. MiraLAX. 2. Zegerid. 3. Pamelor. 4. Centrum. 5. Lisinopril. 6. Levetiracetam. 7. Nuedexta. 8. Baclofen. 9. Atropine ophthalmic solution. 10. Aspirin enteric-coated 81 mg. 11. Amlodipine. REVIEW OF SYSTEMS: Unobtainable. SOCIAL HISTORY: Negative for alcohol, tobacco or recreational drug use. PHYSICAL EXAMINATION: General: She is in no acute distress. Vital Signs: Blood pressure is 153/87, pulse 122, respiration 23, temp of 98.3 degrees. HEENT: Negative for jaundice. Her conjunctivae are pale. Oropharyngeal mucosal membranes are moist. Pulmonary Examination: Lungs are clear to auscultation with normal expiratory effort. Cardiovascular Examination: Reveals resting tachycardia with regular rhythm. Abdomen: Reveals normoactive bowel sounds. The abdomen is soft and nontender. There is a PEG in the left upper quadrant. Extremities: Bilaterally are negative for edema. They are immobilized due to her recent bilateral hip fractures. OBJECTIVE DATA: Remarkable for hemoglobin of 6.6 with hematocrit of 22.2 and white count 7.09. She has 93,000 platelets. Sodium is 147, potassium 2.9, chloride 115, CO2 of 23, BUN 15, creatinine 0.5 with a glucose 142. Calcium is 7.7, magnesium 2.0, phosphorus 1.6 and pre-albumin 11.5. IMPRESSION: 1. Profound anemia. 2. Guaiac negative stools. 3. Chronic malnutrition requiring percutaneous gastrostomy tube. 4. Hypokalemia. 5. On anticoagulation due to recent hip fractures. RECOMMENDATIONS: 1. I recommend that the patient undergo an EGD for further evaluation. She is currently no longer receiving anticoagulation due to a hemoglobin of 6.6. Therefore, we will plan to perform an EGD on Friday morning. 2. Please begin Protonix 40 mg once daily as she has a longstanding history of reflux and has been treated for gastroenteritis in the recent past. 3. Additional recommendations to follow based on her clinical course.
[2016-07-12] MEDS: PROTONIX IV SCH (18:35)
[2016-07-13] MEDS: DILAUDID IV PRN ×2 (00:22→18:48)
[2016-07-13] MEDS: NS 1,000 ML IV SCH ×2 (02:23→16:32)
[2016-07-13] MEDS: ZOSYN 3.375 GM/NS 50 ML IV SCH ×4 (02:27→20:41)
[2016-07-13] MEDS: PROTONIX IV SCH ×2 (04:34→16:32)
[2016-07-13 06:26] LABS: AGAP 10; BUN 4 mg/dL (8-22); CALCIUM 8.3 mg/dL (8.8-10.2); CHLORIDE 108 mmol/L (98-107); COSMO 282; POTASSIUM 3.2 mmol/L (3.5-5.1); SODIUM 143 mmol/L (136-145); TCO2 25 mmol/L (25-35)
[2016-07-13 06:32] LABS: BASO% 0.1 % (0.0-0.8); EOS# 0.38 X1000 (0.0-0.7); HEMATOCRIT 32.4 % (37.0-47.0); HEMOGLOBIN 10.3 g/dL (12.0-16.0); LYMPH# 1.82 X1000 (1.2-3.4); LYMPH% 24.1 % (20.5-51.1); MANUAL DIFF NEEDED? NO; MCH 27.5 PG (27-31); MCHC 31.8 g/dL (33-37); MCV 86.4 FL (81-99); MONO# 0.51 X1000 (0.11-0.59); MONO% 6.8 % (1.7-9.3); PLT 77 X1000 (130-400); RBC 3.75 XMIL (4.2-5.4)
[2016-07-13] MEDS ORDERED: POTASSIUM CHLORIDE 60 MEQ in NS 500 ML IV SCH (10:45)
[2016-07-13] MEDS ORDERED: POTASSIUM PHOSPHATE 30 MMOL in NS 250 ML IV ONE (11:13)
[2016-07-13] MEDS: KEPPRA LIQUID PEG SCH ×2 (11:30→20:42)
[2016-07-13] MEDS: TYLENOL PO PRN (13:43)
[2016-07-13] MEDS: VANCOMYCIN 1,300 MG in NS 250 ML IV SCH (13:46)
--- NOTE | 2016-07-13 14:48 | PROGRESS NOTE ---
DATE: 07/13/2016 SUBJECTIVE: The patient is not communicative. OBJECTIVE: Vital Signs: Show a blood pressure 152/86, respirations 16, pulse 109, temp 97.4 degrees Fahrenheit. HEENT: Normocephalic. Lungs: Clear to auscultation and percussion without rhonchi, rales, or wheezes. Heart: Regular rate and rhythm to sinus tachycardia without murmurs, gallops, or friction rubs. Abdomen: Soft. Active bowel sounds. No organomegaly or tenderness. Phosphorus is a little low, potassium was a little low at 3.2. Phosphorus was 1.6 yesterday and 1.8 today. We will give her some K-Phos. Blood cultures negative. Patient is in leg immobilizers at this time. ASSESSMENT: 1. Bilateral femoral fractures. 2. Hypokalemia. 3. Anemia. She was given 3 units packed red blood cells yesterday and her hemoglobin is back up to 10.3. PLAN: We will continue care, replace phosphorus and potassium.
[2016-07-14] MEDS: DILAUDID IV PRN ×3 (01:11→20:25)
[2016-07-14] MEDS: ZOSYN 3.375 GM/NS 50 ML IV SCH ×4 (02:30→20:51)
[2016-07-14] MEDS: NS 1,000 ML IV SCH ×2 (04:47→18:38)
[2016-07-14] MEDS: PROTONIX IV SCH ×2 (04:47→16:09)
[2016-07-14 06:15] LABS: BASO% 0.2 % (0.0-0.8); EOS# 0.45 X1000 (0.0-0.7); EOS% 7.3 % (0.0-10.0); HEMATOCRIT 32.6 % (37.0-47.0); HEMOGLOBIN 10.4 g/dL (12.0-16.0); LYMPH% 22.7 % (20.5-51.1); MANUAL DIFF NEEDED? NO; MCH 27.6 PG (27-31); MCHC 31.9 g/dL (33-37); MCV 86.5 FL (81-99); MONO% 6.5 % (1.7-9.3); NEUT% 63.3 % (42.2-75.2); PLT 77 X1000 (130-400); RBC 3.77 XMIL (4.2-5.4)
[2016-07-14 06:26] LABS: AGAP 11; BUN 5 mg/dL (8-22); CHLORIDE 103 mmol/L (98-107); COSMO 278; SODIUM 140 mmol/L (136-145); TCO2 26 mmol/L (25-35)
[2016-07-14] MEDS: KEPPRA LIQUID PEG SCH ×2 (08:34→21:22)
[2016-07-14] MEDS ORDERED: POTASSIUM PHOSPHATE 30 MMOL in NS 250 ML IV ONE (10:13)
--- NOTE | 2016-07-14 11:41 | PROGRESS NOTE ---
DATE: 07/14/2016 SUBJECTIVE: The patient is not communicative. OBJECTIVE: Vital signs: Blood pressure is 157/93, respirations 15, pulse 107, temp 97.2 degrees Fahrenheit, HEENT: She is normocephalic. Lungs: Clear to auscultation and percussion without rhonchi, rales, or wheezes. Heart: Regular rate and rhythm without murmurs, gallops, or friction rubs. Sinus tachycardia. Abdomen: Soft. Active bowel sounds. No organomegaly or tenderness. Neurological: Exam unchanged. LABORATORY: Potassium is 3.0 with a sodium 140, creatinine 0.4, BUN 5. Calcium a little low at 8.0 but albumin was only 2.8 the other day. We have given her some K-Phos. Her phosphorus was better from 1.8 up to 3.1. I will give her another round of K-Phos for potassium. If phosphorus stays up after that and we need potassium will give KCl. ASSESSMENT: 1. Bilateral femur fractures. 2. Hypophosphatemia. 3. Hypokalemia. 4. Status post brain tumor. 5. Status post cerebrovascular accident. 6. Hypertension. 7. Anemia requiring transfusion. Hemoglobin today was 10.4. PLAN: EGD on Friday.
[2016-07-14] MEDS: VANCOMYCIN 1,300 MG in NS 250 ML IV SCH (14:24)
[2016-07-14] MEDS: SODIUM CHLORIDE 0.9% INJ SCH (16:09)
--- NOTE | 2016-07-14 20:46 | PROGRESS NOTE ---
DATE: 07/14/2016 SUBJECTIVE: No significant change. Patient remains uncommunicative. No signs of any active bleeding. OBJECTIVE: Vital signs: Are stable. Afebrile. HEENT: No scleral icterus. Conjunctival pallor present. Neck: Supple. Trachea midline. Heart and lungs: Normal. Abdomen: Benign. Neurological: Exam unchanged. LABORATORY DATA: Hematocrit and hemoglobin remaining stable. No signs of any bleeding anywhere. ASSESSMENT: Talked to the family and the nurse and the patient is scheduled for esophagogastroduodenoscopy tomorrow. -2
--- NOTE | 2016-07-14 20:46 | PROGRESS NOTE ---
DATE: 07/13/2016 SUBJECTIVE: The patient is pretty much unresponsive. There were no signs of further bleeding. OBJECTIVE: Vital Signs: Blood pressure 150/90, respiration 15, pulse 100, temperature 97.2 degrees. HEENT: Conjunctival pallor present. Neck: Supple. Trachea midline. Heart: Rhythm is normal. There is some sinus tachycardia. Abdomen: Benign. No organomegaly. No ascites. Neurologic: No change. LABORATORY DATA: Potassium is low at 3. Albumin and calcium are also slightly low. Hematocrit and hemoglobin are stable. IMPRESSION: 1. Bilateral femur fracture. 2. Hypophosphatemia. 3. Hypokalemia. 4. Anemia, which is stable after transfusion. 5. History of cerebrovascular accident. Will continue watching. The patient is scheduled for esophagogastroduodenoscopy Friday by Dr. Cornell.
[2016-07-15] MEDS: DILAUDID IV PRN ×3 (03:30→19:49)
[2016-07-15] MEDS: ZOSYN 3.375 GM/NS 50 ML IV SCH ×4 (03:34→21:29)
[2016-07-15] MEDS: SODIUM CHLORIDE 0.9% INJ SCH ×2 (06:06→17:18)
[2016-07-15] MEDS: PROTONIX IV SCH ×2 (06:06→17:18)
[2016-07-15] MEDS ORDERED: MYLICON DROPS MISC ONE (07:40)
[2016-07-15] MEDS ORDERED: DIPRIVAN 1% ONE (08:08)
[2016-07-15] MEDS ORDERED: FENTANYL ONE (08:09)
[2016-07-15] MEDS: NS 1,000 ML IV SCH ×2 (08:15→21:28)
[2016-07-15] MEDS ORDERED: LR 1,000 ML ONE (08:32)
[2016-07-15] MEDS ORDERED: ANESTHESIA PB SET 88 IN 5742 ONE (08:32)
[2016-07-15] MEDS ORDERED: DIFLUCAN LIQUID PO ONE (08:54)
[2016-07-15] MEDS: KEPPRA LIQUID PEG SCH ×2 (09:00→21:28)
--- NOTE | 2016-07-15 09:40 | PROGRESS NOTE ---
DATE: 07/15/2016 SUBJECTIVE: The patient just had her EGD. Apparently, it was normal except for a hiatal hernia and no bleeding source was found. I do not have a note from Dr. Cornell yet to see if she plans to do a colonoscopy or not. OBJECTIVE: Vital Signs: Temperature is 99.9 degrees Fahrenheit. Blood pressure 136/66, respirations 14, pulse 119 beats per minute. HEENT: She is normocephalic. Lungs: Clear to auscultation and percussion without rhonchi, rales, or wheezes. Heart: Regular rate and rhythm without murmurs, gallops, or friction rubs. Abdomen: Soft with active bowel sounds. No organomegaly or tenderness. Neurological: Examination unchanged. ASSESSMENT: 1. Bilateral femur fractures. 2. Hypokalemia. 3. Status post brain tumor. 4. Anemia. 5. Hypertension. 6. Hypophosphatemia. PLAN: Continue care.
--- NOTE | 2016-07-15 11:51 | OPERATIVE NOTE ---
PROCEDURE DATE: 07/15/2016 REFERRING PHYSICIAN: Dr. Felton Ferguson MD. INDICATION FOR PROCEDURE: Anemia. PROCEDURE PERFORMED: Esophagogastroduodenoscopy. CONSENT: Informed consent was obtained from the patient's mother prior to the procedure. The risks, benefits, and alternatives were discussed. MEDICATION: The patient received monitored anesthesia care. PERFORMING PHYSICIAN: Emmy Cornell MD. ASSISTANTS: 1. KIAH Cary. 2. Dulce Parker RN. 3. Rd Portillo RN. 4. Vikram Mackey CRNA. 5. Gibson Chen MD (anesthesia). COMPLICATIONS: There were no complications. ESTIMATED BLOOD LOSS: None. SPECIMENS REMOVED: None. FINDINGS: Upon insertion of the scope into the oropharynx, there were multiple whitish plaques on the posterior aspect of the tongue consistent with oral thrush. The hypopharynx appeared endoscopically normal except for occasional whitish plaque. There was cricopharyngeal achalasia requiring a moderate amount of pressure to insert the scope into the esophagus. The tubular esophagus appeared endoscopically normal. The GE junction was measured at 38 cm from the incisors. There was a small hiatal hernia from 38-40 cm. In the gastric lumen, there was nonerosive gastritis that oozed with contact. Hemostasis was achieved with water flushes. There were nonbleeding AVMs present. There were a few small gastric polyps present that were less than 10 mm in size and remained intact. There was a PEG balloon in the mid gastric body that appeared normal with no evidence of induration or inflammation. The pylorus appeared endoscopically normal. The duodenal bulb was endoscopically normal. After the exam was complete, the lumen was decompressed and the scope was retracted into the gastric body and retroflexed exam was performed. There were no other findings except for the aforementioned gastritis and the gastric polyps. The lumen was then decompressed and the scope was removed without incident. IMPRESSIONS: 1. Oral thrush. 2. Cricopharyngeal achalasia. 3. Hiatal hernia. 4. Nonerosive gastritis. 5. 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 6. Small gastric polyps that remain intact. 7. Percutaneous endoscopically placed gastrostomy tube in the mid gastric body. 8. Normal duodenum. RECOMMENDATION: 1. Continue Protonix 40 mg IV q.12 hours. 2. Begin Diflucan 200 mg today followed by 100 mg daily for 20 days and then stop. 3. There was no source of bleeding found. Therefore, I would continue current management at this time. 4. If the patient has another drop in hemoglobin or evidence of active bleeding, I would consider performing a colonoscopy. In light of her recent hip fractures, I would recommend conservative management in light of the fact that she is on traction without surgical intervention.
[2016-07-15] MEDS: VANCOMYCIN 1,300 MG in NS 250 ML IV SCH (16:00)
[2016-07-16] MEDS: DILAUDID IV PRN ×4 (00:18→22:52)
[2016-07-16] MEDS: ZOSYN 3.375 GM/NS 50 ML IV SCH ×4 (03:44→20:22)
[2016-07-16] MEDS: VANCOMYCIN 1,300 MG in NS 250 ML IV SCH ×2 (04:20→15:54)
[2016-07-16] MEDS: PROTONIX IV SCH ×2 (04:28→16:36)
[2016-07-16] MEDS: SODIUM CHLORIDE 0.9% INJ SCH (04:28)
[2016-07-16 05:24] LABS: BASO% 0.4 % (0.0-0.8); EOS# 0.26 X1000 (0.0-0.7); EOS% 5.1 % (0.0-10.0); HEMATOCRIT 32.4 % (37.0-47.0); HEMOGLOBIN 9.8 g/dL (12.0-16.0); LYMPH# 1.03 X1000 (1.2-3.4); LYMPH% 20.3 % (20.5-51.1); MANUAL DIFF NEEDED? NO; MCH 27.1 PG (27-31); MCHC 30.2 g/dL (33-37); MCV 89.8 FL (81-99); MONO# 0.53 X1000 (0.11-0.59); MONO% 10.4 % (1.7-9.3); NEUT% 63.8 % (42.2-75.2); PLT 96 X1000 (130-400); RBC 3.61 XMIL (4.2-5.4)
[2016-07-16 06:25] LABS: AGAP 11; BUN 8 mg/dL (8-22); CALCIUM 8.3 mg/dL (8.8-10.2); CHLORIDE 110 mmol/L (98-107); COSMO 294; POTASSIUM 3.1 mmol/L (3.5-5.1); SODIUM 148 mmol/L (136-145); TCO2 27 mmol/L (25-35)
--- NOTE | 2016-07-16 07:38 | PROGRESS NOTE ---
DATE: 07/16/2016 SUBJECTIVE: Ms. Reed is still lying in bed. She really does not respond to any verbal stimuli other than blinking her eyes. OBJECTIVE: Bilateral lower extremity exam: Her knee immobilizers are intact and in good position. Both knees do remain swollen. ASSESSMENT: 1. Right supracondylar femur fracture. 2. Left tibial plateau fracture. PLAN: I am going to keep the knee immobilizer in place. I am going to get new x-rays today of bilateral knees and we will take a look and see where we are. I know Ms. Reed really does not ambulate at all and so we will continue to treat this nonoperatively and continue to follow.
[2016-07-16] MEDS: NS 1,000 ML IV SCH ×2 (07:49→09:03)
--- NOTE | 2016-07-16 08:07 | Diag Imaging Result Document ---
PROCEDURE NAME: KNEE 1-2 VIEWS-RIGHT - 07/16/2016 X-RAY RIGHT KNEE 2 VIEWS, 07/16/2016: COMPARISON: 07/10/2016. FINDINGS: Technique is suboptimal. There is a large joint effusion. There are stable fractures of the distal femur. No significant displacement. No remodeling or bony bridging. IMPRESSION: No significant change from prior.
--- NOTE | 2016-07-16 08:14 | Diag Imaging Result Document ---
PROCEDURE NAME: KNEE 1-2 VIEWS-LEFT - 07/16/2016 LEFT KNEE, TWO VIEWS: COMPARISON: 07/10/2016. FINDINGS: Technique is suboptimal. There are stable fractures of the femur and proximal tibia. There is some slight remodeling but no significant bony bridging. IMPRESSION: No change from prior.
[2016-07-16] MEDS: KEPPRA LIQUID PEG SCH ×2 (09:02→20:22)
[2016-07-16] MEDS ORDERED: LASIX IV ONE (09:09)
--- NOTE | 2016-07-16 09:44 | PROGRESS NOTE ---
DATE: 07/16/2016 SUBJECTIVE: The patient is not communicating. She is awake. OBJECTIVE: Vital Signs: Show blood pressure 193/95, respirations 14, pulse 110. Temperature 98.9 degrees Fahrenheit. HEENT: She is normocephalic. EOMS intact. Lungs: Have rales anteriorly. Heart: Regular rate and rhythm without murmurs, gallops, or friction rubs. Abdomen: Soft. Active bowel sounds. No organomegaly or tenderness. Did have gastritis and thrush on her EGD. Neurological exam: Unchanged. ASSESSMENT: 1. Bilateral femoral fractures and left tibial fracture. 2. Uncontrolled hypertension. 3. Anemia. 4. Questionable gastrointestinal bleed. The source was not actually found. PLAN: Will also note that potassium is low, so I will replace potassium. We will control blood pressure better. We will get a chest x-ray.
--- NOTE | 2016-07-16 10:35 | Diag Imaging Result Document ---
PROCEDURE NAME: CHEST-PORTABLE - 07/16/2016 PORTABLE CHEST: COMPARISON: 07/10/2016. FINDINGS: A right-sided PICC line has been placed. The tip lies near the junction of the superior vena cava and right atrium. The lungs are well expanded. The heart is not enlarged. The vessels are not distended. There are no infiltrates. No pleural effusions identified. IMPRESSION: No pneumonia.
[2016-07-16] MEDS: DIFLUCAN LIQUID PO SCH (12:16)
[2016-07-16] MEDS: PRINIVIL PEG SCH (20:22)
[2016-07-16] MEDS ORDERED: POTASSIUM CHLORIDE 10% LIQUID PEG SCH (21:00)
[2016-07-17] MEDS: NS 1,000 ML IV SCH (01:52)
[2016-07-17] MEDS: ZOSYN 3.375 GM/NS 50 ML IV SCH ×4 (03:32→20:30)
[2016-07-17] MEDS: VANCOMYCIN 1,300 MG in NS 250 ML IV SCH (04:11)
[2016-07-17] MEDS: SODIUM CHLORIDE 0.9% INJ SCH (04:11)
[2016-07-17] MEDS: PROTONIX IV SCH (04:11)
[2016-07-17] MEDS: DILAUDID IV PRN ×4 (04:20→20:33)
[2016-07-17 04:39] LABS: BASO% 0.2 % (0.0-0.8); EOS# 0.17 X1000 (0.0-0.7); EOS% 2.8 % (0.0-10.0); HEMATOCRIT 32.5 % (37.0-47.0); HEMOGLOBIN 9.8 g/dL (12.0-16.0); LYMPH# 1.02 X1000 (1.2-3.4); LYMPH% 16.7 % (20.5-51.1); MANUAL DIFF NEEDED? YES; MCH 27.6 PG (27-31); MCHC 30.2 g/dL (33-37); MCV 91.5 FL (81-99); MONO# 0.58 X1000 (0.11-0.59); MONO% 9.5 % (1.7-9.3); NEUT% 70.8 % (42.2-75.2); PLT 100 X1000 (130-400); RBC 3.55 XMIL (4.2-5.4)
[2016-07-17 04:58] LABS: AGAP 10; BUN 16 mg/dL (8-22); CALCIUM 8.1 mg/dL (8.8-10.2); CHLORIDE 110 mmol/L (98-107); COSMO 302; SODIUM 151 mmol/L (136-145); TCO2 31 mmol/L (25-35)
[2016-07-17 06:44] LABS: BANDS 2 % (0-1); EOS 6 % (1-10); LYMPHS 14 % (21-51); MONO 12 % (1-9)
[2016-07-17 06:45] LABS: POLYCHROM OCCASIONAL
[2016-07-17 06:46] LABS: LARGE PLATELETS 1+
[2016-07-17] MEDS: KEPPRA LIQUID PEG SCH ×2 (09:51→20:30)
[2016-07-17] MEDS: DIFLUCAN LIQUID PO SCH (09:51)
[2016-07-17] MEDS: POTASSIUM CHLORIDE 10% LIQUID PEG SCH ×2 (09:51→20:29)
[2016-07-17] MEDS: PRINIVIL PEG SCH ×2 (09:51→20:30)
--- NOTE | 2016-07-17 10:25 | PROGRESS NOTE ---
DATE: 07/17/2016 SUBJECTIVE: The patient is not communicating. OBJECTIVE: Vital signs: Show blood pressure of 166/82, respirations 15, pulse 108, temp 98.8 degrees Fahrenheit. HEENT: She is normocephalic. Lungs: Clear to auscultation. Chest x-ray from yesterday is clear. Rales that I heard yesterday have resolved. Heart: Tachycardic without murmurs, gallops, or friction rubs. Abdomen: Soft. Active bowel sounds. No organomegaly or tenderness. Neurological: Exam unchanged. ASSESSMENT: 1. Bilateral femur fractures and left tibial fracture. 2. Status post brain tumor. 3. Status post cerebrovascular accident. 4. Anemia. 5. Hypokalemia. PLAN: Will move to the floor. Will increase supplemental potassium which is low at 3.0. Will start her back on her Norvasc.
[2016-07-18] MEDS: ZOSYN 3.375 GM/NS 50 ML IV SCH ×2 (03:29→08:24)
[2016-07-18] MEDS: DILAUDID IV PRN ×2 (04:23→08:18)
[2016-07-18 04:59] LABS: AGAP 12; BASO% 0.2 % (0.0-0.8); BUN 22 mg/dL (8-22); CALCIUM 8.9 mg/dL (8.8-10.2); CHLORIDE 115 mmol/L (98-107); COSMO 314; EOS# 0.18 X1000 (0.0-0.7); EOS% 2.9 % (0.0-10.0); HEMATOCRIT 33.1 % (37.0-47.0); HEMOGLOBIN 9.7 g/dL (12.0-16.0); LYMPH# 1.05 X1000 (1.2-3.4); MANUAL DIFF NEEDED? YES; MCH 27.1 PG (27-31); MCHC 29.3 g/dL (33-37); MCV 92.5 FL (81-99); MONO# 0.58 X1000 (0.11-0.59); MONO% 9.4 % (1.7-9.3); NEUT% 70.5 % (42.2-75.2); PLT 113 X1000 (130-400); POTASSIUM 3.6 mmol/L (3.5-5.1); RBC 3.58 XMIL (4.2-5.4); SODIUM 156 mmol/L (136-145); TCO2 29 mmol/L (25-35)
[2016-07-18 05:28] LABS: EOS 1 % (1-10); LARGE PLATELETS OCCASIONAL; LYMPHS 14 % (21-51); MONO 7 % (1-9); NRBC 1 % (0-0)
[2016-07-18] MEDS: POTASSIUM CHLORIDE 10% LIQUID PEG SCH (08:23)
[2016-07-18] MEDS: TYLENOL PO PRN (08:23)
[2016-07-18] MEDS: PRINIVIL PEG SCH (08:24)
[2016-07-18] MEDS: DIFLUCAN LIQUID PO SCH (08:24)
[2016-07-18] MEDS: KEPPRA LIQUID PEG SCH (08:24)
--- NOTE | 2016-07-18 09:45 | PROGRESS NOTE ---
DATE: 07/18/2016 SUBJECTIVE: The patient still does not communicate. OBJECTIVE: Vital Signs: Blood pressure is 186/96, respirations 18, pulse 107, temperature 99.2 degrees Fahrenheit. We have added back her lisinopril. I am going to add back Norvasc 5 mg daily. HEENT: She is normocephalic. Lungs: Clear to auscultation and percussion without rhonchi, rales, or wheezes. Heart: Regular rate rhythm without murmurs, gallops, or friction rubs. Abdomen: Soft. Active bowel sounds. No organomegaly or tenderness. She had been on antibiotics. I am going to stop those since we have found no source of infection. Neurological: Unchanged. ASSESSMENT: 1. Bilateral femoral fractures. 2. Hypertension. 3. Anemia. PLAN: Continue support.
[2016-07-18] MEDS: NORVASC PEG SCH (10:25)
[2016-07-18] MEDS ORDERED: NORVASC PEG SCH (13:17)
[2016-07-18] MEDS: ZEGERID 40 MG PO SCH (14:06)
[2016-07-18] MEDS: CENTRUM TABLET PEG SCH (14:07)
[2016-07-18] MEDS: LIORESAL PEG SCH ×2 (14:07→20:53)
[2016-07-19 07:14] LABS: BASO% 0.3 % (0.0-0.8); EOS# 0.19 X1000 (0.0-0.7); EOS% 2.6 % (0.0-10.0); HEMATOCRIT 34.8 % (37.0-47.0); HEMOGLOBIN 10.2 g/dL (12.0-16.0); LYMPH# 1.21 X1000 (1.2-3.4); LYMPH% 16.3 % (20.5-51.1); MANUAL DIFF NEEDED? NO; MCH 27.2 PG (27-31); MCHC 29.3 g/dL (33-37); MCV 92.8 FL (81-99); MONO% 8.1 % (1.7-9.3); NEUT% 72.7 % (42.2-75.2); PLT 120 X1000 (130-400); RBC 3.75 XMIL (4.2-5.4)
[2016-07-19 07:29] LABS: AGAP 14; BUN 28 mg/dL (8-22); CALCIUM 9.2 mg/dL (8.8-10.2); CHLORIDE 111 mmol/L (98-107); COSMO 311; POTASSIUM 3.6 mmol/L (3.5-5.1); SODIUM 153 mmol/L (136-145); TCO2 28 mmol/L (25-35)
[2016-07-19] MEDS: NORVASC PEG SCH (08:42)
[2016-07-19] MEDS: CENTRUM TABLET PEG SCH (08:42)
[2016-07-19] MEDS: ZEGERID 40 MG PO SCH (08:42)
[2016-07-19 10:35] LABS: MAGNESIUM 2.4 mg/dL (1.5-2.7)
--- NOTE | 2016-07-19 11:09 | PROGRESS NOTE ---
DATE: 07/19/2016 SUBJECTIVE: The patient is not communicating. She is awake. OBJECTIVE: Vital Signs: Show a temp of 100.2 degrees Fahrenheit. She has been running low-grade temp since yesterday. Blood pressure 164/86, pulse 109, respiration rate 19, O2 satting 98% on room air. General: We had stopped her antibiotics that she had been started on initially when she came in the hospital as it was thought that she might be septic. However, all cultures were negative at that time. HEENT: She is normocephalic. EOMS intact. PERRLA. Throat clear. Lungs: Clear to auscultation and percussion without rhonchi, rales, or wheezes. Heart: Regular rate and rhythm to sinus tachycardia without murmurs, gallops, or friction rubs. Abdomen: Soft. Active bowel sounds. No organomegaly or tenderness. Neurological exam: Cranial nerves 2-12 intact grossly. Sensory and motor intact. Reflexes 1+ all. ASSESSMENT: 1. Bilateral femoral fractures. 2. History of brain tumor. 3. History of stroke. 4. Fever of unknown origin. PLAN: Will culture urine, blood and get a chest x-ray. Start on cefepime.
--- NOTE | 2016-07-19 12:15 | Diag Imaging Result Document ---
PROCEDURE NAME: CHEST-PORTABLE - 07/19/2016 CHEST, SINGLE VIEW: [id number]: 07/16/2016. INDICATION: Fever. FINDINGS: There is stable cardiomegaly. The pulmonary vasculature is not congested. A PICC catheter is in place at the cavoatrial junction. IMPRESSION: Cardiomegaly. No acute abnormalities.
[2016-07-19] MEDS: TAZIDIME 2 GM in NS 100 ML IV SCH (13:23)
[2016-07-19 14:00] LABS: URINE CULTURE NEEDED? NO; URINE MICRO REVIEW NEEDED? NO; URINE SOURCE CATH
[2016-07-19 14:05] LABS: BILIRUBIN URINE NEGATIVE (NEGATIVE); BLOOD URINE NEGATIVE (NEGATIVE); COLOR YELLOW; GLUCOSE URINE NEGATIVE (NEGATIVE); LEUKOCYTES URINE NEGATIVE (NEGATIVE); NITRITE URINE NEGATIVE (NEGATIVE); PROTEIN URINE TRACE mg/dL (NEGATIVE); TURBIDITY URINE CLEAR (CLEAR); UR EPITHELIAL CELLS <10 /HPF (<10); URINE BACTERIA NEGATIVE /HPF; URINE RBC <10 /HPF (<10); URINE WBC <10 /HPF (<10); UROBILINOGEN URINE NORMAL (NORMAL)
[2016-07-19] MEDS: LIORESAL PEG SCH (21:07)
[2016-07-20] MEDS: TAZIDIME 2 GM in NS 100 ML IV SCH ×2 (00:25→13:57)
[2016-07-20 07:08] LABS: BASO% 0.2 % (0.0-0.8); EOS# 0.23 X1000 (0.0-0.7); EOS% 2.7 % (0.0-10.0); HEMATOCRIT 36.3 % (37.0-47.0); HEMOGLOBIN 10.5 g/dL (12.0-16.0); LYMPH# 1.32 X1000 (1.2-3.4); LYMPH% 15.8 % (20.5-51.1); MANUAL DIFF NEEDED? YES; MCH 26.7 PG (27-31); MCHC 28.9 g/dL (33-37); MCV 92.4 FL (81-99); MONO% 7.2 % (1.7-9.3); NEUT% 74.1 % (42.2-75.2); PLT 126 X1000 (130-400); RBC 3.93 XMIL (4.2-5.4)
[2016-07-20 07:36] LABS: AGAP 14; BUN 28 mg/dL (8-22); CHLORIDE 111 mmol/L (98-107); COSMO 316; POTASSIUM 3.4 mmol/L (3.5-5.1); SODIUM 156 mmol/L (136-145); TCO2 31 mmol/L (25-35)
[2016-07-20 07:41] LABS: BANDS 4 % (0-1); EOS 2 % (1-10); HYPOCHROM 1+; LYMPHS 12 % (21-51); MONO 8 % (1-9)
[2016-07-20] MEDS: NORVASC PEG SCH (10:18)
[2016-07-20] MEDS: CENTRUM TABLET PEG SCH (10:18)
[2016-07-20] MEDS: ZEGERID 40 MG PO SCH (10:18)
--- NOTE | 2016-07-20 12:14 | PROGRESS NOTE ---
DATE: 07/20/2016 SUBJECTIVE: The patient is noncommunicative. OBJECTIVE: Vital signs show temp of 100.7 degrees Fahrenheit. Pulse 111, respirations 19, blood pressure 177/92, O2 saturation is 96%. HEENT: She is normocephalic. EOMs intact. PERRLA. Throat clear. Lungs: Are clear to auscultation and percussion without rhonchi, rales, or wheezes. Heart: Regular rate and rhythm without murmurs, gallops, or friction rubs. Abdomen: Is soft, flat with active bowel sounds. No organomegaly or tenderness. White count is 8380, hemoglobin 10.2. Urinalysis was normal. Chest x-ray was normal. Unsure exactly where her fever is coming from at this time. Have her on antibiotics. Awaiting blood cultures. ASSESSMENT: 1. Bilateral femoral fractures. 2. Fever. PLAN: Continue care.
[2016-07-20] MEDS: TYLENOL LIQUID PEG PRN (12:28)
[2016-07-20] MEDS: LIORESAL PEG SCH (20:01)
[2016-07-21] MEDS: TAZIDIME 2 GM in NS 100 ML IV SCH ×2 (02:16→13:42)
[2016-07-21 07:26] LABS: BASO% 0.3 % (0.0-0.8); EOS# 0.33 X1000 (0.0-0.7); EOS% 4.2 % (0.0-10.0); HEMATOCRIT 34.9 % (37.0-47.0); HEMOGLOBIN 10.3 g/dL (12.0-16.0); LYMPH# 1.49 X1000 (1.2-3.4); MANUAL DIFF NEEDED? NO; MCH 27.1 PG (27-31); MCHC 29.5 g/dL (33-37); MCV 91.8 FL (81-99); MONO# 0.46 X1000 (0.11-0.59); MONO% 5.9 % (1.7-9.3); NEUT% 70.6 % (42.2-75.2); PLT 120 X1000 (130-400)
[2016-07-21 07:33] LABS: AGAP 10; BUN 27 mg/dL (8-22); CALCIUM 9.1 mg/dL (8.8-10.2); CHLORIDE 111 mmol/L (98-107); COSMO 310; POTASSIUM 3.2 mmol/L (3.5-5.1); SODIUM 153 mmol/L (136-145); TCO2 32 mmol/L (25-35)
[2016-07-21] MEDS: CENTRUM TABLET PEG SCH (09:59)
[2016-07-21] MEDS: ZEGERID 40 MG PO SCH (09:59)
[2016-07-21] MEDS: NORVASC PEG SCH (09:59)
[2016-07-21] MEDS: POTASSIUM CHLORIDE 10% LIQUID PEG SCH ×2 (13:42→20:18)
--- NOTE | 2016-07-21 13:44 | PROGRESS NOTE ---
DATE: 07/21/2016 SUBJECTIVE: Patient is not communicating. OBJECTIVE: Vital Signs: Blood pressure 159/91, respirations 14, pulse 109, temperature 98.4 degrees Fahrenheit. She had a little low-grade temperature earlier this morning 99.6. HEENT: Normocephalic. Lungs: Clear to auscultation and percussion without rhonchi, rales, or wheezes. Heart: Regular rate rhythm without murmurs, gallops, or friction rubs. Abdomen: Soft. Active bowel sounds. No organomegaly or tenderness. Extremities: The patient has bilateral femoral fractures. ASSESSMENT: 1. Bilateral femoral fractures. 2. Anemia. 3. Hypertension. 4. Status post brain cancer. 5. Status post cerebrovascular accident. 6. On tube feedings. 7. Hypokalemia with a potassium of 3.2. 8. Fever of unknown origin. PLAN: Continue support, have continued IV antibiotics but so far all cultures and x-rays and urinalysis have been normal. Possibly this could be just a virus. Will replace potassium. Will add back her lisinopril for her blood pressure.
[2016-07-21] MEDS: PRINIVIL PO SCH (20:17)
[2016-07-21] MEDS: LIORESAL PEG SCH (20:17)
[2016-07-22] MEDS: TAZIDIME 2 GM in NS 100 ML IV SCH ×2 (00:49→12:50)
[2016-07-22 07:02] LABS: BASO% 0.4 % (0.0-0.8); EOS# 0.26 X1000 (0.0-0.7); EOS% 3.4 % (0.0-10.0); HEMATOCRIT 34.9 % (37.0-47.0); HEMOGLOBIN 10.2 g/dL (12.0-16.0); LYMPH# 1.57 X1000 (1.2-3.4); LYMPH% 20.4 % (20.5-51.1); MANUAL DIFF NEEDED? NO; MCH 27.1 PG (27-31); MCHC 29.2 g/dL (33-37); MCV 92.6 FL (81-99); MONO# 0.44 X1000 (0.11-0.59); MONO% 5.7 % (1.7-9.3); NEUT% 70.1 % (42.2-75.2); PLT 121 X1000 (130-400); RBC 3.77 XMIL (4.2-5.4)
[2016-07-22 07:11] LABS: AGAP 12; BUN 27 mg/dL (8-22); CALCIUM 9.1 mg/dL (8.8-10.2); CHLORIDE 110 mmol/L (98-107); COSMO 310; POTASSIUM 3.4 mmol/L (3.5-5.1); SODIUM 153 mmol/L (136-145); TCO2 31 mmol/L (25-35)
[2016-07-22] MEDS: CENTRUM TABLET PEG SCH (08:11)
[2016-07-22] MEDS: ZEGERID 40 MG PO SCH (08:11)
[2016-07-22] MEDS: NORVASC PEG SCH (08:11)
[2016-07-22] MEDS: POTASSIUM CHLORIDE 10% LIQUID PEG SCH ×2 (08:11→20:33)
[2016-07-22] MEDS: PRINIVIL PO SCH ×2 (08:11→20:33)
--- NOTE | 2016-07-22 08:31 | PROGRESS NOTE ---
DATE: 07/22/2016 SUBJECTIVE: The patient is not speaking. OBJECTIVE: Vital Signs: Show a temperature of 99.5 degrees Fahrenheit, pulse 109, respirations 27, blood pressure 154/84. Respirations did come down to 16. Oxygen saturation on room air is 98%. HEENT: Normocephalic. Lungs: Sound clear to auscultation and percussion without rhonchi, rales, or wheezes. Heart: Regular rate and rhythm to sinus tachycardia without murmurs, gallops, or friction rubs. Abdomen: Soft. Active bowel sounds. No organomegaly or tenderness. Neurologic Examination: Cranial nerves 2-12 are intact grossly. Sensory and motor intact. Reflexes 1+ all. Patient has had previous brain tumor with cancer and a stroke and so does not hold herself up well, has generalized weakness. LABORATORY: Potassium is still a little low at 3.4 but up from 3.2 yesterday after giving supplemental potassium. We will continue to do that. Sodium is a little high at 153. White count 7680, hemoglobin 10.2. ASSESSMENT: 1. Bilateral femoral fractures. 2. Anemia. I could not find source of bleed with esophagogastroduodenoscopy. We will consider colonoscopy after her femoral fractures heal as long as she does not have an obvious bleed that pushes us to do this. 3. Fever of unknown origin. Have not been able to find the source at this point. Blood cultures are negative. Urinalysis was normal. Chest x-ray was normal. Lungs sound clear. Flu testing was negative. Possibly could be some other virus. I think we will just have to wait and watch this for right now. 4. Other diagnoses include status post brain tumor and stroke. Patient being fed through a gastrostomy tube. PLAN: Continue support.
[2016-07-22] MEDS: LIORESAL PEG SCH (20:33)
[2016-07-23] MEDS: TAZIDIME 2 GM in NS 100 ML IV SCH ×2 (00:36→12:15)
[2016-07-23 07:50] LABS: BASO% 0.4 % (0.0-0.8); EOS# 0.34 X1000 (0.0-0.7); EOS% 3.5 % (0.0-10.0); HEMATOCRIT 35.4 % (37.0-47.0); HEMOGLOBIN 10.3 g/dL (12.0-16.0); IMM GRAN# 0.02 X1000 (0.0-0.04); IMM GRAN% 0.2 % (0.0-0.5); LYMPH% 19.5 % (20.5-51.1); MANUAL DIFF NEEDED? NO; MCH 27.2 PG (27-31); MCHC 29.1 g/dL (33-37); MCV 93.4 FL (81-99); MONO# 0.52 X1000 (0.11-0.59); MONO% 5.3 % (1.7-9.3); NEUT% 71.1 % (42.2-75.2); PLT 119 X1000 (130-400); RBC 3.79 XMIL (4.2-5.4)
[2016-07-23 08:08] LABS: AGAP 12; BUN 28 mg/dL (8-22); CALCIUM 9.1 mg/dL (8.8-10.2); CHLORIDE 110 mmol/L (98-107); COSMO 308; SODIUM 152 mmol/L (136-145); TCO2 30 mmol/L (25-35)
[2016-07-23] MEDS: PRINIVIL PO SCH ×2 (09:12→21:37)
[2016-07-23] MEDS: NORVASC PEG SCH (09:12)
[2016-07-23] MEDS: ZEGERID 40 MG PO SCH (09:12)
[2016-07-23] MEDS: POTASSIUM CHLORIDE 10% LIQUID PEG SCH ×2 (09:12→21:37)
[2016-07-23] MEDS: CENTRUM TABLET PEG SCH (09:12)
--- NOTE | 2016-07-23 11:29 | PROGRESS NOTE ---
DATE: 07/23/2016 SUBJECTIVE: The patient does not communicate but she is awake. OBJECTIVE: Vital Signs: Temperature 99.2 degrees Fahrenheit. Blood pressure 132/64. Pulse 108. Respirations 19. Oxygen saturations 98% on room air. HEENT: She is normocephalic. Lungs: Clear to auscultation and percussion without rhonchi, rales, or wheezes. Heart: Regular rate and rhythm without murmurs, gallops, or friction rubs. Abdomen: Soft. Active bowel sounds. No organomegaly or tenderness. Neurological: Unchanged. ASSESSMENT: 1. Anemia, which has improved with a hemoglobin of 10.3. 2. Bilateral femoral fractures after fall. 3. Fever of unknown origin. PLAN: Continue care. Waiting for fever to go away or presentation of sight of infection but, so far, I have not been able to find one.
[2016-07-23] MEDS: TYLENOL LIQUID PEG PRN (21:37)
[2016-07-23] MEDS: LIORESAL PEG SCH (21:37)
[2016-07-24] MEDS: TAZIDIME 2 GM in NS 100 ML IV SCH (01:23)
[2016-07-24 07:28] LABS: BASO% 0.4 % (0.0-0.8); EOS# 0.29 X1000 (0.0-0.7); EOS% 3.7 % (0.0-10.0); HEMATOCRIT 33.8 % (37.0-47.0); HEMOGLOBIN 9.8 g/dL (12.0-16.0); LYMPH% 24.4 % (20.5-51.1); MANUAL DIFF NEEDED? YES; MCH 26.9 PG (27-31); MCV 92.9 FL (81-99); MONO% 6.4 % (1.7-9.3); NEUT% 65.1 % (42.2-75.2); PLT 112 X1000 (130-400); RBC 3.64 XMIL (4.2-5.4)
--- NOTE | 2016-07-24 07:29 | PROGRESS NOTE ---
DATE: 07/24/2016 SUBJECTIVE: Ms. Reed is lying in bed this morning. Still really not responding to any voice. OBJECTIVE: Bilateral lower extremity exam, skin looks intact with no blistering to either leg. Knee immobilizers are in place. The overall alignment looks good. ASSESSMENT: Bilateral knee fractures. PLAN: Will continue the knee immobilizers. Probably do that for around a 6-8 week period total. If she remains in the hospital over the next week, then I will probably get an x-ray this next week just to see where we are on healing driscoll.
[2016-07-24 07:46] LABS: AGAP 12; BUN 25 mg/dL (8-22); CHLORIDE 110 mmol/L (98-107); COSMO 303; SODIUM 150 mmol/L (136-145); TCO2 28 mmol/L (25-35)
[2016-07-24 08:17] LABS: BANDS 4 % (0-1); EOS 4 % (1-10); LYMPHS 22 % (21-51); MONO 10 % (1-9)
[2016-07-24] MEDS: POTASSIUM CHLORIDE 10% LIQUID PEG SCH ×2 (08:25→21:21)
[2016-07-24] MEDS: CENTRUM TABLET PEG SCH (08:25)
[2016-07-24] MEDS: ZEGERID 40 MG PO SCH (08:25)
[2016-07-24] MEDS: PRINIVIL PO SCH ×2 (08:25→21:21)
[2016-07-24] MEDS: NORVASC PEG SCH (08:25)
--- NOTE | 2016-07-24 10:17 | PROGRESS NOTE ---
DATE: 07/24/2016 SUBJECTIVE: The patient is not talking to us. OBJECTIVE: Vital signs show a blood pressure of 141/74, respirations 20, pulse 105. Temperature 98.6 degrees Fahrenheit but, yesterday, she did go back up to 100.1 degrees Fahrenheit; earlier today, it was 99.1 degrees Fahrenheit. HEENT: She is normocephalic. Lungs are clear to auscultation and percussion without rhonchi, rales, or wheezes. Heart: Regular rate and rhythm without murmurs, gallops, or friction rubs. Abdomen is soft with active bowel sounds. No organomegaly or tenderness. The patient has bilateral femoral fractures. ASSESSMENT: 1. Bilateral femoral fractures. 2. Anemia with possible gastrointestinal bleed and source unknown at this point. 3. 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 4. Esophagitis. 5. Thrush. 6. Fever of unknown origin. PLAN: We will consult Infectious Disease.
[2016-07-24] MEDS ORDERED: VANCOMYCIN IV PER PHARMACY MISC SCH (12:15)
[2016-07-24] MEDS: CEFTAZIDIME IV SCH ×2 (13:26→21:21)
[2016-07-24] MEDS: SODIUM CHLORIDE IV SCH ×2 (13:26→21:21)
--- NOTE | 2016-07-24 14:17 | CONSULTATION ---
DATE OF CONSULTATION: 07/24/2016 CONCLUSION: Dr. Ferguson was kind enough to ask me to see Ms. Reed regarding her fever. The exact etiology of the fever is uncertain to me. I think since her last x-ray of the chest was taken she could have developed a pneumonia. Also, she has a PICC in her arm and she may have a bacteremia as a result of the having the PICC in her arm. The patient has her legs in long splints. From just looking at the legs I did not see any obvious signs of infection. RECOMMENDATIONS: I have ordered repeat blood cultures. Also, I have ordered another chest x-ray. Pending these results, I have placed the patient on a combination of vancomycin and ceftazidime. DISCUSSION: The patient is unable to provide a history but her mother provided a limited history. The patient fell at home and was brought to the emergency room and subsequently admitted to the hospital. She has bilateral knee fractures. She has been having a low-grade fever but no leukocytosis. She has had 3 blood cultures which showed no growth and 1 blood culture which grew a coagulase-negative Staph. I think this probably is a contaminant. Patient has had 2 urine cultures and they were both negative. The patient's chest x-ray showed clear lung roberson. The patient's creatinine is 0.7. The GFR is greater than 60. The patient's CBC shows a white count of 7780, hemoglobin 9.8, and platelet count 112,000. The patient yesterday had a temperature maximum of 100.2. PAST MEDICAL HISTORY/REVIEW OF SYSTEMS: Was unobtainable from the patient. The patient's mother told me that the patient is bedridden. She passes urine and stool. She wears diapers. The patient has a G-tube through which she is fed. The patient is unable to talk. PAST MEDICAL HISTORY: Positive for stroke, brain tumor which was surgically treated, placement of a CSF shunt, placement of a G-tube and patient also had a hematoma which was operated on from the brain. MEDICAL DISEASES: Stroke, hypertension, cancer, convulsive disorder, brain tumor also and a hematoma in the head also. INFECTIOUS DISEASE HISTORY: Negative for pneumonia and UTI. FAMILY HISTORY: Positive for diabetes mellitus, hypertension, myocardial infarction, cancer, and stroke. DIAGRAMMER AND SEAMER HISTORY: The patient is a 2 para 2 AB 0. She delivered both her children by C- section. She has also had a tubal ligation. SOCIAL HISTORY: The patient is bedridden. She lives with her mother. ALLERGIES: The patient is allergic to latex. She has a PICC in her arm at this time. PREVIOUS HOSPITALIZATIONS AND OPERATIONS: Patient has had a cholecystectomy and hernia repair as well as placement of a PEG tube. HOME MEDICATIONS: Consist of the following: Amlodipine, atropine, ophthalmic solution, aspirin, baclofen, levetiracetam, dextromethorphan, lisinopril, Pamelor, multivitamins, omeprazole, Zegerid and MiraLAX. PHYSICAL EXAMINATION: Temperature was earlier 100.2, now it is 98.6, pulse 105 , respirations 20, blood pressure 141/74.General: This is an ill-appearing, middle-aged female. She is in no acute distress. Head, eyes, ears, nose, and throat: No drainage noted from the nose or ears. Patient did not respond to verbal stimuli. Her eyes were open but she did not track. Neck: No meningismus. Thorax: No increased AP diameter. Lungs: Clear to auscultation. Cardiovascular: Regular heart rate. Abdomen has a PEG tube in place. The site is not erythematous or purulent. Abdomen: Soft and nontender. Extremities: Both legs are in long splints. The patient has a PICC in her arm the site of which is not erythematous or swollen. Integument: I did not notice any rashes. Thank you for the consult. MTDD
--- NOTE | 2016-07-24 14:45 | Diag Imaging Result Document ---
PROCEDURE NAME: CHEST-1 VIEW - 07/24/2016 SINGLE FRONTAL RADIOGRAPH OF THE CHEST: COMPARISON: 07/19/2016. FINDINGS: Right PICC line is stable. Inspiration is suboptimal. The lungs are grossly clear. There is no definite pleural fluid collection. Cardiac silhouette is stable. IMPRESSION: Stable chest. No definite acute pathology.
[2016-07-24] MEDS ORDERED: VANCOMYCIN 1,800 MG in NS 250 ML IV ONE (15:00)
[2016-07-24] MEDS: LIORESAL PEG SCH (21:21)
[2016-07-25] MEDS: CEFTAZIDIME IV SCH (05:08)
[2016-07-25] MEDS: SODIUM CHLORIDE IV SCH (05:08)
[2016-07-25] MEDS: ZEGERID 40 MG PO SCH (08:43)
[2016-07-25] MEDS: CENTRUM TABLET PEG SCH (08:44)
[2016-07-25] MEDS: NORVASC PEG SCH (08:44)
[2016-07-25] MEDS: PRINIVIL PO SCH ×2 (08:44→20:42)
[2016-07-25] MEDS: POTASSIUM CHLORIDE 10% LIQUID PEG SCH ×2 (08:44→20:42)
--- NOTE | 2016-07-25 09:35 | PROGRESS NOTE ---
DATE: 07/25/2016 SUBJECTIVE: The patient does not communicate. She is awake. OBJECTIVE: Vital Signs: Show a temperature down to 98.4 degrees Fahrenheit, pulse 105, respirations 17, blood pressure 145/71. Still had some low-grade fever earlier this morning with a 99.7 and yesterday with a 99.6. Had been up to 100.2 on the 15th as well. Has one blood culture growing gram-positive cocci, has not been further identified as of yet. She has been started back on Tazidime and vancomycin. HEENT: She is normocephalic. Lungs: Lungs are clear to auscultation and percussion without rhonchi, rales, or wheezes. Heart: Regular rate and rhythm without murmurs, gallops, or friction rubs. Abdomen: Soft. Active bowel sounds. No organomegaly or tenderness. Neurologic: Examination is unchanged. ASSESSMENT: 1. Bilateral femoral fractures. 2. Hypotension initially. 3. One positive blood culture. PLAN: Continue IV antibiotics. Continue to watch. Awaiting final culture reports. The chest x- ray was normal. The blood culture that was positive did come through her PICC line. We may have to consider removing that if this turns out to be a pathogen.
--- NOTE | 2016-07-25 09:52 | PROGRESS NOTE ---
DATE: 07/25/2016 PRESENT ILLNESS: The patient was seen yesterday because she is having fever. Thus far of the tests I ordered yesterday, 1 of 2 blood cultures is growing gram-positive cocci. It should be noted that earlier 1 of the patient's blood cultures grew coagulase-negative staph, however since that positive blood culture there have been 2 other blood cultures drawn on the same day which were sterile. MEDICATIONS: The patient is on a combination of ceftazidime and vancomycin. PHYSICAL EXAMINATION: Vital Signs: Temperature is 98.4 degrees pulse 105, respirations 17, blood pressure 145/71. General: This is a chronically ill-appearing, middle-aged female, lying in bed right now. She seems to be in no acute distress. Lungs: Clear to auscultation. Cardiovascular: Heart rate was regular. Abdomen: Soft and not tender. A G-tube is in place; the site is not erythematous. Neurologic: Patient is obtunded. She has her eyes open, but did not respond to verbal stimuli. LAB AND X-RAY: Chest x-ray is clear. As mentioned above, one of two blood cultures is growing gram-positive cocci. CBC shows a white count of 7780, hemoglobin 9.8, and platelet count 112,000. Creatinine 0.7. GFR is greater than 60. The chest x-ray shows clear lung roberson. ASSESSMENT AND PLAN: I think that most likely the patient does indeed have a bacteremia that most likely originates from her PICC. If that proves to be the case, then the PICC will have to be removed so that we can clear the patient's bacteremia. The patient's comorbidity is that she is basically a bedridden patient that is unfortunately a set up to develop many different kinds of the infection, and any time that she has a prolonged intravenous catheter that would be a possible source of infection as well. The patient also has a convulsive disorder which could predispose her to developing pneumonia. She also has a history of a brain tumor. [facility]
[2016-07-25 11:13] LABS: AGAP 10; BUN 22 mg/dL (8-22); CALCIUM 8.8 mg/dL (8.8-10.2); CHLORIDE 112 mmol/L (98-107); COSMO 304; POTASSIUM 4.8 mmol/L (3.5-5.1); SODIUM 151 mmol/L (136-145); TCO2 29 mmol/L (25-35)
[2016-07-25] MEDS: VANCOMYCIN 1,300 MG in NS 250 ML IV SCH (15:02)
[2016-07-25] MEDS: LIORESAL PEG SCH (20:42)
[2016-07-26] MEDS: TYLENOL LIQUID PEG PRN (04:43)
[2016-07-26 06:43] LABS: AGAP 12; BUN 22 mg/dL (8-22); CALCIUM 8.7 mg/dL (8.8-10.2); CHLORIDE 110 mmol/L (98-107); COSMO 300; POTASSIUM 4.1 mmol/L (3.5-5.1); SODIUM 148 mmol/L (136-145); TCO2 26 mmol/L (25-35)
[2016-07-26] MEDS: PRINIVIL PO SCH ×2 (08:17→20:03)
[2016-07-26] MEDS: POTASSIUM CHLORIDE 10% LIQUID PEG SCH ×2 (08:17→20:02)
[2016-07-26] MEDS: NORVASC PEG SCH (08:17)
[2016-07-26] MEDS: CENTRUM TABLET PEG SCH (08:18)
[2016-07-26] MEDS: ZEGERID 40 MG PO SCH (08:18)
--- NOTE | 2016-07-26 10:25 | PROGRESS NOTE ---
DATE: 07/26/2016 SUBJECTIVE: The patient is not communicative. OBJECTIVE: Vital Signs: Show blood pressure 130/49, pulse was 110 and then there was 1 check that was 48, so I wonder if it could be an error since she has had much higher before that. Temperature 98.2 degrees, but earlier about 2-3 hours ago, she had 100.1 temperature. HEENT: Normal. Lungs: Clear to auscultation and percussion without rhonchi, rales, or wheezes. Heart: Regular rate and rhythm without murmurs, gallops, or friction rubs. Abdomen: Soft. Active bowel sounds. No organomegaly or tenderness. Neurological: Exam unchanged. ASSESSMENT: Probable bacteremia. Peripherally inserted central catheter line is growing gram- positive cocci that a preliminary report would be Enterococcus. I do not have this finalized yet. The other blood culture is negative. PLAN: We will remove PICC line and gave IV antibiotics through a different source. Awaiting final report.
[2016-07-26] MEDS: VANCOMYCIN 1,300 MG in NS 250 ML IV SCH (15:35)
--- NOTE | 2016-07-26 16:24 | PROGRESS NOTE ---
DATE: 07/26/2016 PRESENT ILLNESS: The patient has been having fever. One of 2 blood cultures is growing enterococcus. MEDICATIONS: The patient was on a combination of vancomycin and ceftazidime. The ceftazidime has been discontinued. PHYSICAL EXAMINATION: Vital Signs: Temperature maximum was 100.1, now the temperature is 98.2 degrees, pulse 48, respiration 17, blood pressure 130/49. General: Generally this is an ill- appearing middle-aged female who is in no acute distress. Lungs: Clear to auscultation. Cardiovascular: Regular heart rate. Abdomen: Soft and nontender. G-tube is in place. The G- tube site is not erythematous or purulent. LABS AND X-RAY: The CBC today shows a white count of 7780, hemoglobin 9.8, and platelet count 112,000. Creatinine is 0.7. GFR is greater than 60. One out of 2 blood cultures grew enterococcus as mentioned above. ASSESSMENT AND PLAN: My plan is that the patient probably has a real bacteremia with enterococcus, and the plan will be to continue vancomycin pending the susceptibility data of the enterococcal organism. I plan to treat the patient for at least 2 weeks with IV antibiotics to which the organism is susceptible. I agree with Dr. Ferguson removing the patient' s PICC today as this most likely was the source of the patient's bacteremia. I have discontinued ceftazidime and I suggest continuing vancomycin pending final susceptibility studies of the enterococcal isolate. COMORBIDITY: She is bedridden. The patient has had a prolonged of intravenous catheter in place which most likely was the cause of the infection. Patient also has a history of convulsive disorder which could predispose her to aspiration pneumonia. The patient finally also has a history of a brain tumor. [facility]
[2016-07-26 16:28] LABS: URINE CULTURE NEEDED? NO; URINE MICRO REVIEW NEEDED? NO; URINE SOURCE CATH
[2016-07-26 16:32] LABS: BILIRUBIN URINE NEGATIVE (NEGATIVE); BLOOD URINE NEGATIVE (NEGATIVE); COLOR YELLOW; GLUCOSE URINE NEGATIVE (NEGATIVE); LEUKOCYTES URINE NEGATIVE (NEGATIVE); NITRITE URINE NEGATIVE (NEGATIVE); PROTEIN URINE TRACE mg/dL (NEGATIVE); SP GRAVITY URINE 1.013; TURBIDITY URINE CLEAR (CLEAR); UR EPITHELIAL CELLS <10 /HPF (<10); URINE BACTERIA NEGATIVE /HPF; URINE RBC <10 /HPF (<10); URINE WBC <10 /HPF (<10); UROBILINOGEN URINE NORMAL (NORMAL)
[2016-07-26] MEDS: LIORESAL PEG SCH (20:03)
[2016-07-27] MEDS: TYLENOL LIQUID PEG PRN (00:45)
[2016-07-27] MEDS: PRINIVIL PO SCH ×2 (09:27→21:38)
[2016-07-27] MEDS: ZEGERID 40 MG PO SCH (09:27)
[2016-07-27] MEDS: NORVASC PEG SCH (09:27)
[2016-07-27] MEDS: CENTRUM TABLET PEG SCH (09:27)
[2016-07-27] MEDS: POTASSIUM CHLORIDE 10% LIQUID PEG SCH ×2 (09:27→21:38)
--- NOTE | 2016-07-27 11:17 | PROGRESS NOTE ---
DATE: 07/27/2016 SUBJECTIVE: The patient is not communicative. OBJECTIVE: Blood pressure is 147/81, respirations 14, pulse 105, temperature 98.9 degrees Fahrenheit. HEENT: She is normocephalic. Lungs: Clear to auscultation and percussion without rhonchi, rales or wheezes. Heart: Regular rate and rhythm without murmurs, gallops or friction rubs. Abdomen: Soft. Active bowel sounds. No organomegaly or tenderness. Neurologic: Unchanged. ASSESSMENT: 1. Bacteremia/sepsis from enterococcus, probably from her PICC line. PICC line was removed. 2. Hypotension, now resolved. 3. Status post brain cancer. 4. Status post cerebrovascular accident. PLAN: Continue vancomycin. Still had some fever this morning of 100.2 degrees Fahrenheit earlier. I appreciate the help from Dr. Danielle. The patient also has bilateral femoral fractures from a fall.
[2016-07-27] MEDS: VANCOMYCIN 1,300 MG in NS 250 ML IV SCH (15:11)
[2016-07-27] MEDS: LIORESAL PEG SCH (21:37)
[2016-07-28] MEDS: TYLENOL LIQUID PEG PRN (04:46)
[2016-07-28] MEDS: NORVASC PEG SCH (10:00)
[2016-07-28] MEDS: POTASSIUM CHLORIDE 10% LIQUID PEG SCH ×2 (10:00→20:00)
[2016-07-28] MEDS: PRINIVIL PO SCH ×2 (10:00→20:00)
[2016-07-28] MEDS: CENTRUM TABLET PEG SCH (10:01)
[2016-07-28] MEDS: ZEGERID 40 MG PO SCH (10:01)
--- NOTE | 2016-07-28 11:54 | PROGRESS NOTE ---
DATE: 07/28/2016 SUBJECTIVE: Patient does not communicate. She is awake. OBJECTIVE: Vital Signs: Blood pressure 145/80, respirations 24, pulse 112, temperature 99.4 degrees Fahrenheit. HEENT: Normocephalic. Lungs: Clear to auscultation and percussion without rhonchi, rales, or wheezes. Heart: Regular rate and rhythm to sinus tachycardia without murmurs, gallops, or friction rubs. Abdomen: Soft. Active bowel sounds. No organomegaly or tenderness. Neurological: Examination unchanged. She has had a brain tumor and a stroke in the past. ASSESSMENT: 1. Bilateral femoral fractures after a fall. 2. Bacteremia versus sepsis with enterococcus from her peripherally inserted central catheter line. PLAN: Continue IV antibiotics.
[2016-07-28] MEDS: VANCOMYCIN 1,300 MG in NS 250 ML IV SCH (15:32)
[2016-07-28] MEDS: LIORESAL PEG SCH (20:00)
[2016-07-29] MEDS: TYLENOL LIQUID PEG PRN (04:59)
[2016-07-29 07:40] LABS: AGAP 12; BUN 15 mg/dL (8-22); CALCIUM 8.7 mg/dL (8.8-10.2); CHLORIDE 104 mmol/L (98-107); COSMO 289; POTASSIUM 4.2 mmol/L (3.5-5.1); SODIUM 144 mmol/L (136-145); TCO2 28 mmol/L (25-35)
--- NOTE | 2016-07-29 08:25 | PROGRESS NOTE ---
DATE: 07/29/2016 PRESENT ILLNESS: The patient has an enterococcal bacteremia. In vitro it is susceptible to penicillin and ampicillin as well as vancomycin. MEDICATIONS: The patient has been on vancomycin. This is day 6 of treatment with vancomycin. PHYSICAL EXAMINATION: Vital Signs: Temperature is 99.4 degrees, pulse 104, respirations 15, blood pressure 146/77. General: This is an ill appearing, middle-aged female. She is in no acute distress. Lungs: Clear to auscultation. Cardiovascular: Regular heart rate. Abdomen: Soft and nontender. There is a G-tube in place. The site is not erythematous or purulent. Neurologic: The patient is obtunded. She did not respond to any verbal stimuli. LAB AND X-RAY: There is no new recent x-ray. The patient's creatinine is 0.5. GFR is greater than 60. Blood culture is growing Enterobacter which was susceptible to ampicillin, penicillin, and vancomycin. ASSESSMENT AND PLAN: I plan to switch the patient to ampicillin and discontinue vancomycin. The patient's comorbidities are that she is bedridden and she has had a prolonged PICC in place. The patient also has a seizure disorder which could predispose her to aspirate and cause aspiration pneumonia.
--- NOTE | 2016-07-29 08:36 | PROGRESS NOTE ---
DATE: 07/29/2016 PRESENT ILLNESS: Patient has an enterococcal bacteremia. MEDICATIONS: Patient has been receiving vancomycin. This is day 6 of treatment with vancomycin. PHYSICAL EXAMINATION: Vital Signs: Temperature is 99.4 degrees, pulse 104, respirations 15, blood pressure 146/77. General: This is an ill-appearing, middle-aged female. She is in no acute distress. Head, Eyes, Ears, Nose, and Throat: The patient did not track with her eyes. No drainage is noted from her nose or ears. Neck: No meningismus. Lungs: Clear to auscultation. Cardiovascular: Heart rate is regular. Abdomen: Soft and nontender. A G-tube is in place. The G-tube site is not erythematous or purulent. LAB AND X-RAY: There is no new x-ray. The patient's creatinine is 0.5. GFR is greater than 60. This is the sixth day of treatment with vancomycin. Blood cultures have been drawn for today. ASSESSMENT AND PLAN: I have switched the patient to ampicillin. She will need 2 weeks of therapy starting from when the patient's repeat blood cultures are sterile. COMORBIDITIES: Include that she is bedridden. She previously had a prolonged intravenous catheter in place. The patient also has a seizure disorder and previously had a brain tumor.
--- NOTE | 2016-07-29 09:11 | PROGRESS NOTE ---
DATE: 07/29/2016 SUBJECTIVE: The patient does not communicate. She does have a little smile on her face and seems to be in no distress at this time, so perhaps she is feeling better. OBJECTIVE: Vital Signs: Blood pressure is 148/62, respirations 20, pulse 92, temperature 99.4 degrees Fahrenheit. HEENT: She is normocephalic. Lungs: Clear to auscultation and percussion without rhonchi, rales, or wheezes. Heart: Regular rate and rhythm without murmurs, gallops, or friction rubs. Abdomen: Soft. Active bowel sounds. No organomegaly or tenderness. Has gastrostomy tube. Neurological: Unchanged. ASSESSMENT: Enterococcus sepsis. PLAN: Has been changed to IV ampicillin cultures are drawn. Continue care.
[2016-07-29] MEDS: AMPICILLIN 2 GM/NS 100 ML IV SCH ×3 (11:36→20:42)
[2016-07-29] MEDS: PRINIVIL PO SCH ×2 (11:37→20:41)
[2016-07-29] MEDS: NORVASC PEG SCH (11:37)
[2016-07-29] MEDS: POTASSIUM CHLORIDE 10% LIQUID PEG SCH ×2 (11:38→20:41)
[2016-07-29] MEDS: ZEGERID 40 MG PO SCH (11:38)
[2016-07-29] MEDS: CENTRUM TABLET PEG SCH (11:39)
[2016-07-29] MEDS: LIORESAL PEG SCH (20:41)
[2016-07-30] MEDS: AMPICILLIN 2 GM/NS 100 ML IV SCH ×6 (00:52→22:55)
[2016-07-30 06:34] LABS: AGAP 16; BASO% 0.4 % (0.0-0.8); BUN 15 mg/dL (8-22); CALCIUM 8.7 mg/dL (8.8-10.2); CHLORIDE 104 mmol/L (98-107); COSMO 286; EOS# 0.25 X1000 (0.0-0.7); EOS% 4.8 % (0.0-10.0); HEMATOCRIT 31.3 % (37.0-47.0); HEMOGLOBIN 9.3 g/dL (12.0-16.0); IMM GRAN# 0.02 X1000 (0.0-0.04); IMM GRAN% 0.4 % (0.0-0.5); LYMPH# 1.22 X1000 (1.2-3.4); LYMPH% 23.5 % (20.5-51.1); MANUAL DIFF NEEDED? YES; MCH 26.7 PG (27-31); MCHC 29.7 g/dL (33-37); MCV 89.9 FL (81-99); MONO# 0.31 X1000 (0.11-0.59); NEUT% 64.9 % (42.2-75.2); PLT 111 X1000 (130-400); POTASSIUM 4.6 mmol/L (3.5-5.1); RBC 3.48 XMIL (4.2-5.4); SODIUM 143 mmol/L (136-145); TCO2 23 mmol/L (25-35)
[2016-07-30 06:55] LABS: EOS 2 % (1-10); LYMPHS 25 % (21-51); MONO 4 % (1-9)
[2016-07-30] MEDS: NORVASC PEG SCH (08:20)
[2016-07-30] MEDS: POTASSIUM CHLORIDE 10% LIQUID PEG SCH ×2 (08:20→22:57)
[2016-07-30] MEDS: CENTRUM TABLET PEG SCH (08:21)
[2016-07-30] MEDS: ZEGERID 40 MG PO SCH (08:21)
[2016-07-30] MEDS: PRINIVIL PO SCH ×2 (08:35→22:55)
--- NOTE | 2016-07-30 11:55 | Diag Imaging Result Document ---
PROCEDURE NAME: KNEE 1-2 VIEWS-RIGHT - 07/30/2016 PLAIN RADIOGRAPH OF THE RIGHT KNEE 2 VIEWS.: COMPARISON: 07/16/2016. FINDINGS: There are known fractures involving the distal femur. They are essentially stable as compared to the recent previous study. There is no significant displacement. No new fracture is appreciated. The joint effusion seen previously has decreased in size. IMPRESSION: Approximately stable healing fractures involving the distal femur as described with interval decrease in size of the joint effusion.
--- NOTE | 2016-07-30 13:15 | PROGRESS NOTE ---
DATE: 07/30/2016 PRESENT ILLNESS: The patient has an enterococcal bacteremia. MEDICATIONS: Yesterday the patient was changed from vancomycin which was day 6 of treatment with it to ampicillin. This is day 1 of treatment with ampicillin. PHYSICAL EXAMINATION: Vital Signs: Temperature is 100.2 degrees, pulse 108, respirations 16, blood pressure 132/70. General: This is an ill-appearing, middle-aged female. She is in no acute distress. Lungs: Clear to auscultation. Cardiovascular: Heart rate is regular and rapid. Abdomen: Soft and nontender. The patient has a G-tube in place. The G-tube site is not erythematous or purulent. Neurologic: The patient is obtunded which is a chronic condition. LAB AND X-RAY: There is no new x-ray. The patient's CBC today shows a white count of 5,190, hemoglobin 9.3, and platelet count 111,000. One of two repeat blood cultures are growing gram positive cocci. ASSESSMENT AND PLAN: As mentioned above, patient has been switched to ampicillin. In a day or 2 I am going to repeat the patient's blood cultures and hopefully they will be negative and also hopefully she will not be running a fever. I did order today since the patient had a breakthrough bacteremia an echocardiogram to look for the possibility of endocarditis. The patient's comorbidities include the following. She is bedridden. She also has a prolonged a PICC in place. She has a seizure disorder which could cause an aspiration pneumonia. Patient requires long-term IV access.
--- NOTE | 2016-07-30 13:18 | PROGRESS NOTE ---
DATE: 07/30/2016 SUBJECTIVE: Ms. Reed is lying in bed this morning. Still not really responding well. She has gotten better from a medical standpoint. Has gotten out of the ICU up to a floor bed. They have maintained her knee immobilizers bilaterally. OBJECTIVE: Bilateral lower extremity exam, the skin still appears to be intact. Still a little bit of swelling to the knees bilaterally. Knee immobilizer looked to be in good position. ASSESSMENT: 1. Right supracondylar femur fracture. 2. Left tibial plateau fracture. PLAN: We are going to keep going with nonoperative treatment. I am going to get x-rays today Ms. Reed' knees. It sounds like she may be headed to rehab soon. We will probably end up treating this for about 2 months in the bracing until those bones heal in really well for her.
--- NOTE | 2016-07-30 13:36 | PROGRESS NOTE ---
DATE: 07/30/2016 SUBJECTIVE: The patient does not talk. OBJECTIVE: Vital Signs: Temperature 100.2 degrees Fahrenheit, pulse 108, respirations 16, blood pressure 132/70. HEENT: She is normocephalic. Neck: Supple. Lungs: Clear to auscultation and percussion without rhonchi, rales, or wheezes. Heart: Regular rate rhythm without murmurs, gallops, or friction rubs. Abdomen: Soft. Active bowel sounds. No organomegaly or tenderness. She does have a gastrostomy tube. Neurological: Unchanged. DIAGNOSTIC DATA: Blood cultures growing out gram-positive coccus that is presumed enterococcus which is what we have been treating her for. She has been changed to ampicillin. White count is 5190, hemoglobin 9.3. Electrolytes essentially normal. ASSESSMENT: 1. Bilateral femoral fractures. 2. Enterococcus sepsis. 3. Status post brain cancer and tumor. 4. Status post cerebrovascular accident. PLAN: Continue IV antibiotics. Dr. Danielle tells me he has ordered an echocardiogram just to rule out endocarditis.
--- NOTE | 2016-07-30 14:09 | Diag Imaging Result Document ---
PROCEDURE NAME: KNEE 1-2 VIEWS-LEFT - 07/30/2016 PLAIN RADIOGRAPH OF THE LEFT KNEE, 2 VIEWS: COMPARISON: 07/16/2016. FINDINGS: There is a nondisplaced oblique fracture involving the distal femur that appears to be approximately stable. There is also a healing tibial fracture. There is increased sclerosis at the site of the fracture indicating bony callus formation. No new fracture is identified. There is mild diffuse soft tissue edema. No large effusion can be identified on this study. IMPRESSION: Fractures of the distal femur and proximal tibia as described with no significant displacement and signs of some interval callus formation and bridging at least at the tibial fracture.
--- NOTE | 2016-07-30 17:18 | ECHO REPORT ---
ORDER DATE: 07/30/2016 INDICATION: A 56-year-old female with endocarditis. ADMITTING PHYSICIAN: Dr. Felton Ferguson Jr. M-MODE MEASUREMENTS: Right ventricle: 2.0 cm. Left ventricle end diastole: 4.1 cm. Left ventricle end systole: 2.4 cm. Posterior wall: 1.0 cm. Interventricular septum: 1.2 cm. Left atrium: 2.8 cm. Aortic root: 2.7 cm. SUMMARY OF 2-DIMENSIONAL IMAGIN. The left ventricular function is normal. Ejection fraction is estimated at 60%-65%. No wall motion abnormality is noted. 2. The right ventricle appears to be normal. 3. The aortic valve looks normal. Color flow mapping is unremarkable. 4. The mitral valve looks normal. Color flow mapping is unremarkable. 5. There is no evidence of vegetation. 6. The tricuspid valve was suboptimally visualized. It appears to be free of any gross large vegetation. 7. The pulmonic valve was also not optimally visualized and appears to be free of any gross vegetation. 8. There is no pericardial effusion and no sign of thrombus. 9. This echo was limited. SUMMARY: In summary, the study shows no evidence of gross vegetation involving the aortic, mitral, pulmonic, and tricuspid valves. Of note, the eustachian valve was noted and it was highly mobile. The possibility of vegetation attached to that particular valve cannot be entirely excluded. Transesophageal echocardiogram may be warranted if indeed this patient has positive blood cultures for a staphylococcus aureus or one of the germs that are usually agents of endocarditis.
[2016-07-30] MEDS: LIORESAL PEG SCH (22:55)
[2016-07-31] MEDS: AMPICILLIN 2 GM/NS 100 ML IV SCH ×4 (04:09→17:50)
[2016-07-31 06:57] LABS: BASO% 0.3 % (0.0-0.8); EOS# 0.25 X1000 (0.0-0.7); EOS% 4.2 % (0.0-10.0); HEMATOCRIT 30.6 % (37.0-47.0); HEMOGLOBIN 9.1 g/dL (12.0-16.0); IMM GRAN# 0.02 X1000 (0.0-0.04); IMM GRAN% 0.3 % (0.0-0.5); LYMPH# 1.34 X1000 (1.2-3.4); LYMPH% 22.4 % (20.5-51.1); MANUAL DIFF NEEDED? YES; MCH 26.7 PG (27-31); MCHC 29.7 g/dL (33-37); MCV 89.7 FL (81-99); MONO# 0.49 X1000 (0.11-0.59); MONO% 8.2 % (1.7-9.3); NEUT% 64.6 % (42.2-75.2); PLT 121 X1000 (130-400); RBC 3.41 XMIL (4.2-5.4)
[2016-07-31 07:08] LABS: AGAP 13; BUN 14 mg/dL (8-22); CALCIUM 8.7 mg/dL (8.8-10.2); CHLORIDE 103 mmol/L (98-107); COSMO 289; POTASSIUM 3.7 mmol/L (3.5-5.1); SODIUM 144 mmol/L (136-145); TCO2 28 mmol/L (25-35)
[2016-07-31 08:31] LABS: EOS 5 % (1-10); LYMPHS 21 % (21-51); MONO 7 % (1-9)
[2016-07-31 08:32] LABS: POLYCHROM OCCASIONAL
[2016-07-31 08:33] LABS: STOMATOCYTES OCCASIONAL
[2016-07-31] MEDS: ZEGERID 40 MG PO SCH (08:53)
[2016-07-31] MEDS: NORVASC PEG SCH (08:53)
[2016-07-31] MEDS: PRINIVIL PO SCH (08:53)
[2016-07-31] MEDS: POTASSIUM CHLORIDE 10% LIQUID PEG SCH (08:54)
[2016-07-31] MEDS: CENTRUM TABLET PEG SCH (08:54)
--- NOTE | 2016-07-31 10:52 | PROGRESS NOTE ---
DATE: 07/31/2016 PRESENT ILLNESS: The patient has an enterococcal bacteremia. Repeat blood cultures are sterile. MEDICATIONS: The patient was changed 2 days ago from vancomycin to ampicillin. This is day 7 of treatment with vancomycin and day 2 of treatment with ampicillin. PHYSICAL EXAMINATION: Vital Signs: Temperature is 98.7 degrees, pulse 111, respirations 21 and blood pressure 149/83. Generally: This is an ill-appearing middle-aged female. She is in no acute distress. Lungs: Clear to auscultation. Cardiovascular: Regular heart rate. Abdomen: Soft and nontender. G-tube is in place. Neurologic: The patient stares straight ahead. She does not respond to verbal stimuli. There is no tremor. She does not attempt to talk and does not track with her eyes. LABORATORY AND X-RAY: The patient's CBC today shows a white count of 5970, hemoglobin 9.1, and platelet count 121,000, and creatinine 0.6. GFR is greater than 60. The repeat blood cultures are sterile. The patient's wound on the right arm has a culture from it which is sterile also. The patient had an echocardiogram and there is no evidence of vegetation involving any of the heart valves. ASSESSMENT AND PLAN: The patient has an enterococcal bacteremia. She will need one more week of treatment to complete a 2 week treatment course with antibiotics. This is day 2 of treatment with ampicillin. The patient's comorbidity is that she is bedridden and she has a seizure disorder which could predispose her to aspiration pneumonia. She requires long-term IV access.
--- NOTE | 2016-07-31 11:15 | PROGRESS NOTE ---
DATE: 07/31/2016 SUBJECTIVE: Patient does not communicate. OBJECTIVE: Vital signs: Show blood pressure 149/83, respirations 21, pulse 111 and regular, temp 98.7 degrees Fahrenheit. HEENT: She is normocephalic. EOMs intact. PERRLA. Throat clear. Lungs: Clear to auscultation and percussion without rhonchi, rales, or wheezes. Heart: Regular rate and rhythm to sinus tachycardia without murmurs, gallops, or friction rubs. Abdomen: Soft. Active bowel sounds. No organomegaly or tenderness. Neurological: Exam unchanged. ASSESSMENT: 1. Enterococcus sepsis. 2. Bilateral femoral fractures. Her x-rays of her distal femur of left knee shows some interval callus formation and bridging at least at the tibial fracture. Right knee shows stable healing fractures involving the distal femur. PLAN: Continue IV antibiotics. Last blood culture is growing gram-positive cocci that was presumed to be enterococcus. Were waiting for the final report.
[2016-08-01] MEDS: AMPICILLIN 2 GM/NS 100 ML IV SCH ×2 (00:10→05:05)
[2016-08-01] MEDS: PRINIVIL PO SCH ×3 (00:10→20:01)
[2016-08-01] MEDS: POTASSIUM CHLORIDE 10% LIQUID PEG SCH ×3 (00:10→20:01)
[2016-08-01] MEDS: LIORESAL PEG SCH ×2 (00:10→20:01)
[2016-08-01 07:15] LABS: BASO% 0.4 % (0.0-0.8); EOS# 0.27 X1000 (0.0-0.7); EOS% 4.8 % (0.0-10.0); HEMATOCRIT 30.7 % (37.0-47.0); HEMOGLOBIN 9.1 g/dL (12.0-16.0); LYMPH# 1.46 X1000 (1.2-3.4); MANUAL DIFF NEEDED? YES; MCH 26.7 PG (27-31); MCHC 29.6 g/dL (33-37); MONO# 0.39 X1000 (0.11-0.59); MONO% 6.9 % (1.7-9.3); NEUT% 61.9 % (42.2-75.2); PLT 120 X1000 (130-400); RBC 3.41 XMIL (4.2-5.4)
[2016-08-01 07:42] LABS: AGAP 13; BUN 14 mg/dL (8-22); CALCIUM 8.8 mg/dL (8.8-10.2); CHLORIDE 106 mmol/L (98-107); COSMO 289; POTASSIUM 3.8 mmol/L (3.5-5.1); SODIUM 144 mmol/L (136-145); TCO2 25 mmol/L (25-35)
[2016-08-01] MEDS ORDERED: VANCOMYCIN IV PER PHARMACY MISC SCH (08:00)
[2016-08-01] MEDS: NORVASC PEG SCH (08:30)
[2016-08-01] MEDS: CENTRUM TABLET PEG SCH (08:30)
[2016-08-01] MEDS: ZEGERID 40 MG PO SCH (08:31)
[2016-08-01 09:26] LABS: EOS 2 % (1-10); LYMPHS 18 % (21-51); MONO 14 % (1-9)
[2016-08-01 09:27] LABS: LARGE PLATELETS OCCASIONAL
[2016-08-01] MEDS ORDERED: VANCOMYCIN 1,750 MG in NS 250 ML IV ONE (10:00)
--- NOTE | 2016-08-01 10:02 | PROGRESS NOTE ---
DATE: 08/01/2016 PRESENT ILLNESS: The patient has an enterococcal bacteremia. Another blood culture has turned positive for coagulase-negative staph which the patient also had blood culture causing the same organism at the 1st part of the month. MEDICATIONS: The patient is on ampicillin. PHYSICAL EXAMINATION: Vital Signs: Temperature is 99.2 degrees, pulse 97, respirations 15, blood pressure 144/81. General: This is an ill-appearing, middle-aged female. She is in no acute distress. Lungs: Clear to auscultation. Cardiovascular: Regular heart rate. Abdomen: Soft and nontender. Neurologic: The patient's eyes did open but she did not track with them and she did not respond to verbal stimuli. LAB AND X-RAY: The CBC shows a white count of 5,620, hemoglobin 9.1, and platelet count 120,000. The patient's creatinine is 0.6. GFR is greater than 60. Echocardiogram showed no valvular vegetations. ASSESSMENT AND PLAN: I have switched the patient to vancomycin to provide coverage both of the coagulase-negative Staph and Enterococcus that were in the patient's blood cultures. It is possible that these organisms could represent contaminants as well but for now I think that we should treat them. The patient's comorbidities are that she is bedridden, she has a seizure disorder, and she needs long-term IV access.
--- NOTE | 2016-08-01 10:23 | PROGRESS NOTE ---
DATE: 08/01/2016 SUBJECTIVE: The patient does not communicate. OBJECTIVE: Vital Signs: Show a temperature up to 99.9 degrees Fahrenheit yesterday. It was 99.2 degrees Fahrenheit so far today, blood pressure 144/81, respirations 15, pulse 97, O2 saturations 99% on room air. HEENT: She is normocephalic. EOMs intact. PERRLA. Throat clear. Lungs: Are clear to auscultation and percussion without rhonchi, rales, or wheezes. Heart: Regular rate and rhythm without murmurs, gallops, or friction rubs. Abdomen: Soft. Active bowel sounds. No organomegaly or tenderness. Neurological: Examination unchanged. She has had previous brain cancer and stroke. Laboratory Data: Her most recent urine cultures showed a coagulase negative Staphylococcus in 1 culture, no growth in the other culture. Probably this is contaminant which means the last time we had a positive blood culture was on 07/24/2016. Other laboratory findings show white count 5620, hemoglobin 9.1. Chemistries are stable. ASSESSMENT: 1. Bilateral femoral fractures. 2. Enterococcus sepsis. PLAN: Continue IV antibiotics.
[2016-08-02 06:56] LABS: AGAP 14; ALBUMIN 2.8 g/dL (3.5-5.0); ALKALINE PHOSPHATASE 382 U/L (32-104); BUN 16 mg/dL (8-22); CALCIUM 8.7 mg/dL (8.8-10.2); CHLORIDE 102 mmol/L (98-107); COSMO 280; GOT 29 U/L (10-30); GPT 26 U/L (10-36); MAGNESIUM 1.9 mg/dL (1.5-2.7); POTASSIUM 4.8 mmol/L (3.5-5.1); PREALBUMIN 25.9 mg/dL (20-40); SODIUM 139 mmol/L (136-145); TCO2 23 mmol/L (25-35); TOTAL BILIRUBIN 0.32 mg/dL (0.20-1.00); TOTAL PROTEIN 6.2 g/dL (6.3-8.3)
--- NOTE | 2016-08-02 09:20 | PROGRESS NOTE ---
DATE: 08/02/2016 SUBJECTIVE: The patient does not communicate, and she is awake. OBJECTIVE: Vital Signs: Blood pressure is 131/76, respirations 16, pulse 91 and regular, temperature 98.7 degrees Fahrenheit. So far, she has not had any fever today and no documented fever yesterday. HEENT: She is normocephalic. Lungs: Clear to auscultation and percussion without rhonchi, rales, or wheezes. Heart: Regular rate and rhythm without murmurs, gallops, or friction rubs. Abdomen: Soft. Active bowel sounds. No organomegaly or tenderness. Neurological: Unchanged. LABORATORY DATA: White count 5620 done yesterday. Chemistry profile today is essentially normal. ASSESSMENT: 1. Bilateral femoral fractures. 2. Enterococcus sepsis. PLAN: Continue IV antibiotics.
[2016-08-02] MEDS: POTASSIUM CHLORIDE 10% LIQUID PEG SCH (11:05)
[2016-08-02] MEDS: CENTRUM TABLET PEG SCH (11:05)
[2016-08-02] MEDS: ZEGERID 40 MG PO SCH (11:05)
[2016-08-02] MEDS: NORVASC PEG SCH (11:05)
[2016-08-02] MEDS: PRINIVIL PO SCH (11:06)
--- NOTE | 2016-08-02 12:07 | PROGRESS NOTE ---
DATE: 08/02/2016 PRESENT ILLNESS: Patient has both an enterococcal and staphylococcal bacteremia. MEDICATIONS: The patient is on vancomycin. This is day 1 of treatment. PHYSICAL EXAMINATION: Vital Signs: Temperature is 98.6 degrees, pulse 98, respirations 16, blood pressure 133/80. Patient's creatinine is 0.5. GFR is greater than 60. Lungs: Clear to auscultation. Cardiovascular: Regular heart rate. Abdomen: Soft and nontender. Extremities: Both legs are in long splints. LAB AND X-RAY: The patient's creatinine today is 0.5. The GFR is greater than 60. There is no new CBC. Likewise, there is no new radiographic study. ASSESSMENT AND PLAN: I plan to continue the patient's vancomycin that was started yesterday and I plan to treat her for a total of 14 days. COMORBIDITIES: Include the fact that she is bedridden. She has a seizure disorder and needs care home IV access.
[2016-08-02] MEDS: VANCOMYCIN 1,400 MG in NS 250 ML IV SCH (13:52)
[2016-08-03] MEDS: POTASSIUM CHLORIDE 10% LIQUID PEG SCH ×3 (00:19→20:59)
[2016-08-03] MEDS: PRINIVIL PO SCH ×3 (00:19→20:59)
[2016-08-03] MEDS: LIORESAL PEG SCH ×2 (00:19→20:59)
--- NOTE | 2016-08-03 09:53 | PROGRESS NOTE ---
DATE: 08/03/2016 SUBJECTIVE: The patient is noncommunicative. OBJECTIVE: Vital Signs: Blood pressure is 138/74, respirations 20, pulse 98, temp 98.6 degrees Fahrenheit. Has been afebrile. HEENT: She is normocephalic. Neck: Supple. Lungs: Clear to auscultation and percussion without rhonchi, rales, or wheezes. Heart: Regular rate and rhythm without murmurs, gallops, or friction rubs. Abdomen: Soft. Active bowel sounds. No organomegaly or tenderness. Neurological: Exam is unchanged. ASSESSMENT: 1. Bilateral femoral fractures. 2. Bacteremia with Enterococcus and Staphylococcus species. PLAN: Continue IV vancomycin for 2 weeks starting yesterday; so, this is day #2 of the vancomycin. Orthopedics is following the fractures.
--- NOTE | 2016-08-03 10:46 | PROGRESS NOTE ---
DATE: 08/03/2016 SUBJECTIVE: Ms. Reed resting in bed this morning. Her demeanor is still about the same as it has been all along. She really does not respond to any verbal commands. OBJECTIVE: Bilateral lower extremity exam: Dressings are still clean, dry, and intact. I do not see any skin ulcerations or abrasions anywhere. RADIOGRAPHS: Radiographs from July 30 were reviewed, which shows on the left side proximal tibial fracture. It still looks about the same as it has. Right knee films did show supracondylar femur fracture, still minimally displaced and position has not changed from previous x-rays. ASSESSMENT: 1. Right supracondylar femur fracture. 2. Left tibial plateau fracture. PLAN: We will continue to treat this nonoperatively. She will be in the braces really for several more weeks while it begins to heal in. Usually about the 6 week kya if she is doing really well, we start coming out of the braces for some range of motion. We will continue to follow.
[2016-08-03] MEDS: CENTRUM TABLET PEG SCH (11:55)
[2016-08-03] MEDS: ZEGERID 40 MG PO SCH (11:55)
[2016-08-03] MEDS: NORVASC PEG SCH (11:55)
[2016-08-03] MEDS: VANCOMYCIN 1,400 MG in NS 250 ML IV SCH (17:33)
[2016-08-04] MEDS: PRINIVIL PO SCH ×2 (10:36→22:33)
[2016-08-04] MEDS: ZEGERID 40 MG PO SCH (10:36)
[2016-08-04] MEDS: POTASSIUM CHLORIDE 10% LIQUID PEG SCH ×2 (10:36→22:33)
[2016-08-04] MEDS: NORVASC PEG SCH (10:36)
[2016-08-04] MEDS: CENTRUM TABLET PEG SCH (10:36)
--- NOTE | 2016-08-04 11:20 | PROGRESS NOTE ---
DATE: 08/04/2016 SUBJECTIVE: The patient is noncommunicative. OBJECTIVE: Vital Signs: Blood pressure 116/67, respirations 18, pulse 103, temperature 96.9 degrees Fahrenheit. HEENT: She is normocephalic. Neck: Supple. Lungs: Clear to auscultation and percussion without rhonchi, rales, or wheezes. Heart: Regular rate and rhythm without murmurs, gallops, or friction rubs. Abdomen: Soft. Active bowel sounds. No organomegaly or tenderness. Neurological: Examination is unchanged. She did have a little temperature yesterday of 99.1 degrees Fahrenheit. ASSESSMENT: 1. Bacteremia/sepsis with enterococcus. 2. Bacteremia with staphylococcus. 3. Bilateral femoral fractures. 4. Status post brain cancer. 5. Status post stroke. PLAN: Continue support.
[2016-08-04] MEDS: VANCOMYCIN 1,400 MG in NS 250 ML IV SCH (19:02)
[2016-08-04] MEDS: LIORESAL PEG SCH (22:33)
[2016-08-05 07:04] LABS: AGAP 12; BASO% 0.5 % (0.0-0.8); BUN 15 mg/dL (8-22); CALCIUM 9.4 mg/dL (8.8-10.2); CHLORIDE 101 mmol/L (98-107); COSMO 281; EOS# 0.22 X1000 (0.0-0.7); EOS% 3.9 % (0.0-10.0); HEMATOCRIT 33.5 % (37.0-47.0); HEMOGLOBIN 10.1 g/dL (12.0-16.0); LYMPH# 1.35 X1000 (1.2-3.4); LYMPH% 23.9 % (20.5-51.1); MANUAL DIFF NEEDED? YES; MCH 26.7 PG (27-31); MCHC 30.1 g/dL (33-37); MCV 88.6 FL (81-99); MONO# 0.37 X1000 (0.11-0.59); MONO% 6.5 % (1.7-9.3); NEUT% 65.2 % (42.2-75.2); PLT 115 X1000 (130-400); POTASSIUM 4.3 mmol/L (3.5-5.1); RBC 3.78 XMIL (4.2-5.4); SODIUM 140 mmol/L (136-145); TCO2 27 mmol/L (25-35)
[2016-08-05 07:40] LABS: BANDS 4 % (0-1); EOS 2 % (1-10); LYMPHS 22 % (21-51); MONO 10 % (1-9)
[2016-08-05] MEDS: CENTRUM TABLET PEG SCH (09:30)
[2016-08-05] MEDS: ZEGERID 40 MG PO SCH (09:30)
[2016-08-05] MEDS: PRINIVIL PO SCH ×2 (09:30→20:57)
[2016-08-05] MEDS: NORVASC PEG SCH (09:30)
[2016-08-05] MEDS: POTASSIUM CHLORIDE 10% LIQUID PEG SCH ×2 (09:30→20:58)
--- NOTE | 2016-08-05 10:17 | PROGRESS NOTE ---
DATE: 08/05/2016 SUBJECTIVE: The patient is noncommunicative. OBJECTIVE: Vital signs: Show blood pressure 156/77, respirations 18, pulse 93, temperature is 99.3 degrees Fahrenheit. She was running some low-grade fever yesterday as well at 99.1 degrees Fahrenheit. HEENT: Normocephalic. Lungs: Clear to auscultation and percussion without rhonchi, rales, or wheezes. Heart: Regular rate and rhythm without murmurs, gallops, or friction rubs. Abdomen: Soft. Active bowel sounds. No organomegaly or tenderness. Neurological: Exam unchanged. ASSESSMENT: 1. Bacteremia/sepsis with enterococcus and coagulase-negative Staphylococcus. 2. Bilateral femoral fractures. 3. Status post brain cancer. 4. Status post stroke. 5. Hypertension. 6. Has gastrostomy tube. PLAN: Continue care with IV antibiotics. Now on vancomycin.
--- NOTE | 2016-08-05 16:33 | PROGRESS NOTE ---
DATE: 08/05/2016 PRESENT ILLNESS: Patient has an enterococcal and staphylococcal bacteremia. MEDICATIONS: The patient is on day 4 of treatment with vancomycin. PHYSICAL EXAMINATION: Vital Signs: Temperature is 98.5 degrees, pulse 92, respirations 18, blood pressure 135/60. General: The patient is noncommunicative. Her eyes are open. She does not respond to verbal stimuli. Lungs: Clear to auscultation. Cardiovascular: Heart rate is regular. Abdomen: Soft and nontender. LAB AND X-RAY: There is no new x-ray today. The patient's CBC shows a white count of 5,660, hemoglobin 10.1, and platelet count 115,000. Creatinine is 0.6. ASSESSMENT AND PLAN: Patient has an enterococcal and staphylococcal bacteremia. I plan to treat the patient for a total of 14 days with vancomycin. I am going to go ahead and get repeat blood cultures to make sure that the bacteremia is being treated adequately. COMORBIDITIES: The patient is bedridden. She has a seizure disorder and needs long-term IV access.
[2016-08-05] MEDS: VANCOMYCIN 1,400 MG in NS 250 ML IV SCH (18:18)
[2016-08-05] MEDS: LIORESAL PEG SCH (20:57)
[2016-08-06 06:54] LABS: AGAP 11; BUN 15 mg/dL (8-22); CALCIUM 9.1 mg/dL (8.8-10.2); CHLORIDE 103 mmol/L (98-107); COSMO 281; POTASSIUM 4.3 mmol/L (3.5-5.1); SODIUM 140 mmol/L (136-145); TCO2 26 mmol/L (25-35)
[2016-08-06 06:56] LABS: BASO% 0.3 % (0.0-0.8); EOS# 0.22 X1000 (0.0-0.7); EOS% 3.5 % (0.0-10.0); HEMATOCRIT 32.5 % (37.0-47.0); HEMOGLOBIN 9.7 g/dL (12.0-16.0); LYMPH# 1.63 X1000 (1.2-3.4); LYMPH% 26.2 % (20.5-51.1); MANUAL DIFF NEEDED? YES; MCH 26.4 PG (27-31); MCHC 29.8 g/dL (33-37); MCV 88.3 FL (81-99); MONO# 0.46 X1000 (0.11-0.59); MONO% 7.4 % (1.7-9.3); NEUT% 62.6 % (42.2-75.2); PLT 98 X1000 (130-400); RBC 3.68 XMIL (4.2-5.4)
[2016-08-06 08:22] LABS: BANDS 4 % (0-1); HYPOCHROM 1+; LARGE PLATELETS 1+; LYMPHS 20 % (21-51); MONO 10 % (1-9)
--- NOTE | 2016-08-06 09:16 | PROGRESS NOTE ---
DATE: 08/06/2016 PRESENT ILLNESS: Patient has a staphylococcal and enterococcal bacteremia. MEDICATIONS: This is day 5 of treatment with vancomycin. PHYSICAL EXAMINATION: Vital Signs: Temperature is 98.1 degrees, pulse 103, respirations 17, blood pressure 143/73. General: This is a somewhat ill-appearing, middle-aged female, who has an altered mental status. Her eyes are open, but she does not respond to verbal stimuli. Lungs: Clear to auscultation. Cardiovascular: Regular heart rate. Abdomen: Soft and nontender. Neurologic: She did not respond to verbal stimuli. There was no tremor. LAB AND X-RAY: CBC-WBC 6.21, hgb 9.7, platelets 98K. Creatinine 0.5. GFR > 60. No new radiographic study. ASSESSMENT AND PLAN: Patient has bacteremia. This is day 5 of treatment with vancomycin. I plan to treat her for 9 more days to complete a 14-day treatment course. COMORBIDITIES: The patient's comorbidities include the fact she is bedridden, has a seizure disorder and needs long-term IV access. [facility]
--- NOTE | 2016-08-06 09:20 | PROGRESS NOTE ---
DATE: 08/06/2016 SUBJECTIVE: The patient does not communicate. OBJECTIVE: Vital signs: Show blood pressure 143/73, respirations 17, pulse 103, temperature 98.1 degrees Fahrenheit. HEENT: She is normocephalic. Lungs: Clear to auscultation and percussion without rhonchi, rales, or wheezes. Heart: Regular rate and rhythm without murmurs, gallops, or friction rubs. Abdomen: Soft. Active bowel sounds. No organomegaly or tenderness. Neurological exam: Unchanged. ASSESSMENT: 1. Bilateral femoral fractures. 2. Sepsis/bacteremia with enterococcus and Staph species. 3. Hypotension, when she first came in the hospital. PLAN: Continue IV antibiotics. New blood cultures were drawn yesterday.
[2016-08-06] MEDS: ZEGERID 40 MG PO SCH (09:55)
[2016-08-06] MEDS: CENTRUM TABLET PEG SCH (09:55)
[2016-08-06] MEDS: NORVASC PEG SCH (09:55)
[2016-08-06] MEDS: PRINIVIL PO SCH ×2 (09:55→21:58)
[2016-08-06] MEDS: POTASSIUM CHLORIDE 10% LIQUID PEG SCH ×2 (09:55→21:58)
[2016-08-06] MEDS: VANCOMYCIN 1,400 MG in NS 250 ML IV SCH (18:05)
[2016-08-06] MEDS: LIORESAL PEG SCH (21:58)
[2016-08-07 07:27] LABS: BASO% 0.5 % (0.0-0.8); EOS# 0.19 X1000 (0.0-0.7); EOS% 3.2 % (0.0-10.0); HEMATOCRIT 32.8 % (37.0-47.0); HEMOGLOBIN 9.9 g/dL (12.0-16.0); LYMPH# 1.28 X1000 (1.2-3.4); LYMPH% 21.7 % (20.5-51.1); MANUAL DIFF NEEDED? YES; MCH 26.7 PG (27-31); MCHC 30.2 g/dL (33-37); MCV 88.4 FL (81-99); MONO# 0.41 X1000 (0.11-0.59); MONO% 6.9 % (1.7-9.3); NEUT% 67.7 % (42.2-75.2); PLT 112 X1000 (130-400); RBC 3.71 XMIL (4.2-5.4)
[2016-08-07 07:34] LABS: AGAP 11; BUN 15 mg/dL (8-22); CALCIUM 9.1 mg/dL (8.8-10.2); CHLORIDE 99 mmol/L (98-107); COSMO 274; POTASSIUM 3.9 mmol/L (3.5-5.1); SODIUM 136 mmol/L (136-145); TCO2 26 mmol/L (25-35)
--- NOTE | 2016-08-07 07:39 | PROGRESS NOTE ---
DATE: 08/07/2016 PRESENT ILLNESS: The patient has a Staph and enterococcal bacteremia. MEDICATIONS: The patient is receiving vancomycin. PHYSICAL EXAMINATION: Vital Signs: Temperature is 97.3 degrees, pulse 106, respirations 21, blood pressure 146/77. General: This is an ill-appearing, middle-aged female. She is in no acute distress. Lungs: Clear to auscultation. Cardiovascular: Regular heart rate. Abdomen: Soft without mass or nontender. G-tube is in place. The G-tube site is not red or purulent. Neurologic: The patient's eyes are open. She did not respond to verbal stimuli. During my exam she did not move her extremities. LAB AND X-RAY: The patient's repeat blood cultures are negative at 48 hours. Her CBC shows a white count of 6,200, hemoglobin 9.7, and platelet count 98,000. The patient's creatinine is 0.5 with a GFR of greater than 60. ASSESSMENT AND PLAN: Patient has a Staph an enterococcal bacteremia. There is no evidence that she has endocarditis or some other focus of infection causing the bacteremia. I have put in a request for a PICC to be placed. I have gone ahead and consulted [facility] to supply the patient's vancomycin at home for 2 weeks. I am going to be available to see the patient on a p.r.n. basis. I am not going to have her come in the office because she is bedridden and it would be very difficult for her to make the appointment. I have requested that the patient's PICC be removed after her last dose of the antibiotic, namely vancomycin, at this time. The plan now is to send the patient home on vancomycin IV for 2 weeks. I have requested that a PICC be placed and that [facility] see the patient and supply the patient's vancomycin for the 2 week period. The patient's comorbidities include that she is bedridden and she has a seizure disorder. The patient also has need of long-term IV access.
[2016-08-07 08:09] LABS: LARGE PLATELETS 1+; LYMPHS 30 % (21-51); MONO 4 % (1-9)
[2016-08-07] MEDS: PRINIVIL PO SCH (09:38)
[2016-08-07] MEDS: POTASSIUM CHLORIDE 10% LIQUID PEG SCH (09:38)
[2016-08-07] MEDS: ZEGERID 40 MG PO SCH (09:38)
[2016-08-07] MEDS: CENTRUM TABLET PEG SCH (09:38)
[2016-08-07] MEDS: NORVASC PEG SCH (09:38)
[2016-08-07 10:16] LABS: INR 1.07; PROTIME 11.4 Seconds (9.2-11.7)
[2016-08-07] MEDS ORDERED: NS 250 ML ONE (12:56)
--- NOTE | 2016-08-07 13:46 | DISCHARGE SUMMARY ---
ADMISSION DATE: 07/10/2016 DISCHARGE DATE: FINAL DIAGNOSES: 1. Bilateral femoral fractures. 2. Enterococcus and Staphylococcus sepsis. 3. Hypotension. 4. Has feeding tube. 5. Status post brain tumor. 6. Status post cerebrovascular accident. 7. Hypertension. 8. Seizure disorder. CONSULTATIONS: 1. Orthopedics. 2. Infectious Disease. The patient will be going home. Will be getting vancomycin to finish up a 2 week course. This will be her 6th day of vancomycin here in the hospital. She will be going home on her regular medications otherwise of her Pamelor 10 mg at bedtime, aspirin 81 mg daily, Keppra 100 mg daily per PEG, atropine ophthalmic drops, 2 drops as needed, Reglan 5 mg p.o. t.i.d., Norvasc 5 mg p.o. b.i.d., lisinopril 40 mg p.o. b.i.d., Zegerid 240 mg daily, MiraLAX 17 g daily, multivitamin once daily, Nudexta one p.o. daily. She will also be on IV vancomycin, finish another 2 weeks. PRESENT ILLNESS: Patient was brought in by ambulance when she had a fall. She was somewhat hypotensive. There was some concern about sepsis at that time. The blood cultures were negative. She had a D-dimer greater than 21. CT scan of the abdomen showed atelectasis in her lungs. Orthopedics was consulted because of bilateral femoral fractures. Please see x-ray report. Orthopedics felt that we should not do surgery on her. She does not get up walk around, even before the accident. She does not communicate. She can be alert. Mother thinks that she does hear and understand a good bit of what's going on around her during her hospitalization. We initially had her on IV antibiotics. All cultures came back negative. We stopped those and after a few days she did spike a fever. She was re-cultured and she had a Staph coagulase negative Staph growing. [place] that was probably not a pathogen. Stopped IV antibiotics and she continued to run fever, re-cultured her, and then she grew out enterococcus in her blood stream. She was placed on vancomycin and then later switched to ampicillin. The repeat cultures she grew out was coagulase negative Staphylococcus again, as well as enterococcus, switched back to vancomycin. We will finished up a 2 week course of that. Repeat blood cultures again recently showed no growth. Urine culture showed no growth. Did have an echocardiogram that did not show any vegetations on the heart valves. We will discharge home. We will get her IV antibiotics there. I will talk with the family about when I could see her back in the office, but it is difficult to get her in. With her femoral fractures, it is probably is going to be more important that she gets back over to Orthopedics and get the x-rays in the next couple weeks. We will try to have that scheduled as well.
--- NOTE | 2016-08-07 14:53 | DISCHARGE SUMMARY ---
ADMISSION DATE: 07/10/2016 DISCHARGE DATE: ADDENDUM: Please note that we also had noted that she was anemic and she had had electrolyte problems as well. She did have to have a transfusion because of her anemia. She did have an EGD performed by Dr. Cornell, and she was found to have a yeast esophagitis and was started on Diflucan and Protonix. She had gastritis and nonbleeding AV malformations. She had some small gastric polyps.
[2016-08-07 15:16] VITALS: BP 131/73
== END 2016-08-07 17:04 | disposition home health service (06) | DRG 314 ==
LOC: EDUNIT# → EDBD → ED 16:27 → ICU 16:28 → 3N 07-18 12:55
PROVIDERS: ADMIT Emergency Medicine; ATTEND Emergency Medicine
PROC: 30233N1 Transfusion of Nonautologous Red Blood Cells into Peripheral Vein, Percutaneous Approach (ICD-10-PCS; 2016-07-11)
PROC: 3E0G76Z Introduction of Nutritional Substance into Upper GI, Via Natural or Artificial Opening (ICD-10-PCS; 2016-07-14)
PROC: 0DJ08ZZ Inspection of Upper Intestinal Tract, Via Natural or Artificial Opening Endoscopic (ICD-10-PCS; 2016-07-15)
PROC: 02PYX3Z Removal of Infusion Device from Great Vessel, External Approach (ICD-10-PCS; 2016-07-26)
PROC: 02HV33Z Insertion of Infusion Device into Superior Vena Cava, Percutaneous Approach (ICD-10-PCS; principal; 2016-08-07)
DX: T80.211A Bloodstream infection due to central venous catheter, initial encounter (principal); A41.81 Sepsis due to Enterococcus; A41.2 Sepsis due to unspecified staphylococcus; R65.21 Severe sepsis with septic shock; N17.9 Acute kidney failure, unspecified; E46 Unspecified protein-calorie malnutrition; B37.0 Candidal stomatitis; S72.451A Displaced supracondylar fracture without intracondylar extension of lower end of right femur, initial encounter for closed fracture; G81.94 Hemiplegia, unspecified affecting left nondominant side; S82.142A Displaced bicondylar fracture of left tibia, initial encounter for closed fracture; R47.01 Aphasia; J98.11 Atelectasis; B37.81 Candidal esophagitis; E83.39 Other disorders of phosphorus metabolism; K22.0 Achalasia of cardia; R13.10 Dysphagia, unspecified; Z93.1 Gastrostomy status; I10 Essential (primary) hypertension; G40.909 Epilepsy, unspecified, not intractable, without status epilepticus; E87.6 Hypokalemia; Y83.8 Other surgical procedures as the cause of abnormal reaction of the patient, or of later complication, without mention of misadventure at the time of the procedure; D50.0 Iron deficiency anemia secondary to blood loss (chronic); W06.XXXA Fall from bed, initial encounter; R79.1 Abnormal coagulation profile; R62.7 Adult failure to thrive; F32.9 Major depressive disorder, single episode, unspecified; K44.9 Diaphragmatic hernia without obstruction or gangrene; K21.9 Gastro-esophageal reflux disease without esophagitis; K31.819 Angiodysplasia of stomach and duodenum without bleeding; K31.7 Polyp of stomach and duodenum; K29.60 Other gastritis without bleeding; Z86.73 Personal history of transient ischemic attack (TIA), and cerebral infarction without residual deficits; Z85.841 Personal history of malignant neoplasm of brain; Z74.01 Bed confinement status; Z79.899 Other long term (current) drug therapy; Z79.82 Long term (current) use of aspirin; Z83.3 Family history of diabetes mellitus; Z98.2 Presence of cerebrospinal fluid drainage device; Z82.49 Family history of ischemic heart disease and other diseases of the circulatory system; Z80.9 Family history of malignant neoplasm, unspecified; Z82.3 Family history of stroke
CPT/HCPCS: 36415; 36569; 51702; 70450; 71010; 71275; 73560; 80048; 80053; 80177; 80202; 81001; 82270; 82533; 82550; 82805; 83605; 83735; 84100; 84134; 84443; 84484; 85025; 85027; 85379; 85610; 85730; 86850; 86900; 86901; 86920; 87040; 87070; 87077; 87088; 87186; 87804; 93005; 93306; 96361; 96365; 96366; 96368; C9113; G0480; J0290; J0713; J1170; J1940; J2543; J3010; J3370; J3480; J7030; J7040; J7050; J7120; P9016; Q9967; 80324; 80345; 80346; 80349; 80353; 80358; 80361; 80365; 83992; S0164

== ENCOUNTER 2016-12-05 14:07 | Inpatient (IN) ==
[2016-12-05] MEDS ORDERED: LIORESAL PO ONE (14:32)
[2016-12-05 15:25] LABS: AGAP 15; ALBUMIN 3.7 g/dL (3.5-5.0); ALKALINE PHOSPHATASE 163 U/L (32-104); BUN 15 mg/dL (8-22); CALCIUM 9.8 mg/dL (8.8-10.2); CHLORIDE 100 mmol/L (98-107); COSMO 273; GOT 32 U/L (10-30); GPT 25 U/L (10-36); POTASSIUM 4.5 mmol/L (3.5-5.1); SODIUM 136 mmol/L (136-145); TCO2 21 mmol/L (25-35); TOTAL BILIRUBIN 0.37 mg/dL (0.20-1.00); TOTAL PROTEIN 8.1 g/dL (6.3-8.3)
--- NOTE | 2016-12-05 15:28 | Diag Imaging Result Doc PS360 ---
EXAM: HEAD W/O CONTRAST TECHNIQUE: Dose reduction protocol was used. INDICATION: muscle spasm COMPARISON: 07/10/2016 FINDINGS: There is excessive motion artifact on the lower slices, which limits fine details. There is a right frontal approach shunt catheter in stable position. The ventricular sizes are stable and there is no evidence of acute hydrocephalus. There is extensive patchy low attenuation in the periventricular and subcortical white matter suggesting fairly advanced microangiopathy, stable. There is patchy mild encephalomalacia involving the periventricular white matter and basal ganglion on the right, stable. There is no definite acute infarct given the limited sensitivity of CT versus MRI. There is no discrete intracranial mass, mass effect, or intracranial hemorrhage. There are several chavez holes in the skull from previous procedures. Surrounding soft tissues and bony structures are essentially unremarkable, otherwise. IMPRESSION: Stable advanced chronic changes as described. No evidence of acute cranial pathology. Electronically signed by Rayray Rojas 12/05/2016 3:26 PM
[2016-12-05 16:03] LABS: URINE SOURCE CATH
[2016-12-05 16:12] LABS: BILIRUBIN URINE NEGATIVE (NEGATIVE); BLOOD URINE NEGATIVE (NEGATIVE); COLOR ORANGE; GLUCOSE URINE NEGATIVE (NEGATIVE); LEUKOCYTES URINE LARGE (NEGATIVE); NITRITE URINE POSITIVE (NEGATIVE); PROTEIN URINE 200 mg/dL (NEGATIVE); SP GRAVITY URINE 1.021; TURBIDITY URINE TURBID (CLEAR); UROBILINOGEN URINE NORMAL (NORMAL)
[2016-12-05 16:34] LABS: UR EPITHELIAL CELLS <10 /HPF (<10); URINE BACTERIA 4+ /HPF; URINE CULTURE NEEDED? YES; URINE MICRO REVIEW NEEDED? YES; URINE RBC 20-40 /HPF (<10); URINE WBC TNTC /HPF (<10)
[2016-12-05] MEDS ORDERED: XYLOCAINE-MPF 1% INJ ONE (16:52)
[2016-12-05] MEDS ORDERED: ROCEPHIN IM ONE (16:52)
[2016-12-05 16:56] LABS: URINE CASTS NONE SEEN; URINE CRYSTALS TRIPLE PHOS PRESENT
[2016-12-05 16:57] LABS: BASO% 0.1 % (0.0-0.8); EOS# 0.06 X1000 (0.0-0.7); EOS% 0.7 % (0.0-10.0); HEMATOCRIT 46.1 % (37.0-47.0); HEMOGLOBIN 14.8 g/dL (12.0-16.0); LYMPH# 1.25 X1000 (1.2-3.4); MANUAL DIFF NEEDED? NO; MCH 26.5 PG (27-31); MCHC 32.1 g/dL (33-37); MCV 82.5 FL (81-99); MONO# 0.41 X1000 (0.11-0.59); MONO% 4.9 % (1.7-9.3); NEUT% 79.3 % (42.2-75.2); PLT 90 X1000 (130-400); RBC 5.59 XMIL (4.2-5.4)
--- NOTE | 2016-12-05 17:03 | PROVIDER DOCUMENTATION ---
This chart was entered by Lynda Garcia Scribe, acting as scribe for Rm Breaux MD. HPI-Respiratory General - General Stated Complaint: SOB Time Seen by Provider: 12/05/16 14:15 Source: patient Allergies/Adverse Reactions: Patient Allergies Allergy/AdvReac Type Severity Reaction Status Date / Time latex Allergy Intermediate RASH Verified 07/10/16 16:37 Home Medications: Home Medication List Medication Instructions Recorded Confirmed Last Taken Type Nortriptyline [Pamelor] 10 mg PEG HS 01/11/14 07/11/16 07/09/16 21:30 History Aspirin EC 81 mg PEG DAILY 07/22/14 07/11/16 07/10/16 11:00 History Levetiracetam 100 mg PEG BID 07/22/14 07/11/16 07/10/16 11:00 History Atropine 1% Ophth Soln 2 drop ORDERED Q4H PRN PRN 04/17/15 07/11/16 07/07/16 13:00 History Dextromethorphan HBr/Quinidine 1 each PEG BID 03/15/16 07/11/16 07/10/16 11:00 History [Nuedexta 20-10 mg Capsule] Lisinopril 40 mg PEG BID 03/15/16 07/11/16 07/10/16 11:00 History Amlodipine Besylate 5 mg PEG DAILY 04/08/16 07/11/16 07/10/16 11:00 History Baclofen 10 mg PEG HS 04/08/16 07/11/16 07/09/16 21:30 History Multivitamins/Minerals [Centrum 1 each PEG DAILY 04/08/16 07/11/16 07/10/16 11: 00 History Tablet] Polyethylene Glycol 3350 [Miralax] 17 gm PEG DAILY 04/08/16 07/11/16 07/10/16 11 :00 History Omeprazole/Sodium Bicarbonate 1 each PO DAILY #30 packet 04/09/16 07/11/1607/10 11:00 Rx [Zegerid 40 mg Packet] Baclofen 10 mg PO BID #60 tablet 12/05/16 Unknown Rx Nitrofurantoin [Furadantin] 100 mg PO BID #400 oral.susp 12/05/16 Unknown Rx - History of Present Illness-Resp Nature of Presenting Problem: Pt is a 56 year old female who came to the ED with a cc of seizure like activity. Pt is non communicative, pt has a hx of brain tumor, and stroke. Pt has short term memory loss. Pt has muscle contractions. Quality of Pain: reports: none Severity in ED: reports: mild Onset/Duration: reports: unsure Timing: reports: still present Exposure: reports: unknown cause Cough Quality/Degree: reports: no cough Episode Frequency: no prior episodes Current Respiratory Medication Therapy: Initiated none Modifying Factors: improves with: nothing Associated Symptoms: reports: denies symptoms Similar Symptoms Previously?: No Recently seen or treated by another doctor?: No Review of Systems - Adult - REVIEW OF SYSTEMS - ADULT Constitutional: denies: chills, fever Eyes: reports: no symptoms reported Ears, Nose, Mouth & Throat: reports: no symptoms reported Cardiovascular: reports: no symptoms reported Respiratory: denies: cough, shortness of breath Gastrointestinal: denies: diarrhea, nausea, vomiting Genitourinary: reports: no symptoms reported Musculoskeletal: reports: no symptoms reported Integumentary: reports: no symptoms reported Neurological: reports: paresthesia, seizure. denies: dizziness/vertigo, numbness, syncope Psychiatric: reports: no symptoms reported Endocrine: reports: no symptoms reported Hematologic/Lymphatic: reports: no symptoms reported Allergic/Immunologic: reports: no symptoms reported All Other Systems: Reviewed and Negative Past History - Adult - PAST MEDICAL HISTORY-ADULT Review of Records: reports: Nursing Assessment Review Major Childhood Illnesses: reports: denies history Cardiovascular: reports: HTN, hyperlipidemia Respiratory: reports: denies history Gastrointestinal: reports: GERD Obstetrical/Gynecological: reports: denies history Genitourinary: reports: denies history Musculoskeletal: reports: denies history Neurological: reports: cancer/tumor, CVA, Seizures/Epilepsy Endocrine/Immune: reports: cancer (BRAIN ) Other Conditions: reports: denies history - PRIOR SURGERIES/PROCEDURES Surgical/Procedure History: reports: - IMMUNIZATION STATUS Childhood Immunizations: See Nurse Assessment Flu Vaccine: See Nurse Assessment - FAMILY HISTORY Family History: reviewed, not pertinent Physical Exam-General - PHYSICAL EXAM-ADULT Initial Vital Signs Reviewed: Yes - CONSTITUTIONAL General Appearance: alert, mild distress - EYES Eyes: PERRL/EOMI, pink conjunctivae - HEAD, EARS, NOSE, MOUTH & THROAT HENMT: normocephalic/atraumatic, moist mucous membranes - NECK Neck: non-tender, full range of motion - RESPIRATORY Respiratory: chest non-tender, lungs clear - CARDIOVASCULAR Cardiovascular: normal peripheral pulses, regular rate, rhythm - GASTROINTESTINAL (ABDOMEN) Abdominal Exam: non tender, other (peg tube) - MUSCULOSKELETAL Back Exam: normal inspection, no CVA tenderness Extremity: other (contracted) - SKIN Integumentary: normal color, normal turgor - NEUROLOGIC Neurologic: grossly normal - PSYCHIATRIC Psych/Mental Status: normal mood/affect, normal thought content, normal thought process, oriented x 3 Progress - PLAN OF CARE/RESULTS Progress/Plan/Lab Results: Vital Signs - 8 hr 12/05/16 14:35 12/05/16 16:34 Temperature 99.0 F Pulse Rate 133 H 116 H Respiratory Rate 18 Blood Pressure 149/91 164/92 O2 Sat by Pulse Oximetry 97 96 Laboratory Results - last 24 hr 12/05/16 12/05/16 12/05/16 14:40 14:40 15:53 WBC Cancelled RBC Cancelled Hgb Cancelled Hct Cancelled MCV Cancelled MCH Cancelled MCHC Cancelled RDW Std Deviation Cancelled Plt Count Cancelled MPV Cancelled Immature Gran % (Auto) Cancelled Neut % (Auto) Cancelled Lymph % (Auto) Cancelled Bertie % (Auto) Cancelled Eos % (Auto) Cancelled Baso % (Auto) Cancelled Immature Gran # (Auto) Cancelled Neut # (Auto) Cancelled Lymph # (Auto) Cancelled Bertie # (Auto) Cancelled Eos # (Auto) Cancelled Baso # (Auto) Cancelled Corrected WBC (Man) Cancelled Sodium 136 Potassium 4.5 Chloride 100 Carbon Dioxide 21 L Anion Gap 15 BUN 15 Creatinine 0.5 Estimated GFR/1.73 m2 > 60 BUN/Creatinine Ratio 30 Glucose 102 Calculated Osmolality 273 Calcium 9.8 Total Bilirubin 0.37 AST 32 H ALT 25 Alkaline Phosphatase 163 H Total Protein 8.1 Albumin 3.7 Globulin 4.4 Albumin/Globulin Ratio 0.8 Urine Source CATH Urine Color ORANGE Urine Turbidity TURBID Urine pH 8.0 Ur Specific Byron 1.021 Urine Protein 200 A Ur Glucose (Stick) NEGATIVE Ur Ketones (Stick) NEGATIVE Urine Blood NEGATIVE Urine Nitrite POSITIVE A Urine Bilirubin NEGATIVE Urobilinogen Dipstick NORMAL Urine Leukocytes LARGE A Urine WBC (Auto) TNTC A Urine RBC (Auto) 20-40 A U Epithel Cells (Auto) <10 Urine Bacteria (Auto) 4+ Urine Crystals TRIPLE PHOS PRESENT Small Round Cells Not Reportable Urine Casts NONE SEEN Urine Yeast-like Cells Not Reportable 12/05/16 16:10 WBC 8.31 RBC 5.59 H Hgb 14.8 Hct 46.1 MCV 82.5 MCH 26.5 L MCHC 32.1 L RDW Std Deviation 14.7 H Plt Count 90 L MPV Not Reportable Immature Gran % (Auto) 0.0 Neut % (Auto) 79.3 H Lymph % (Auto) 15.0 L Bertie % (Auto) 4.9 Eos % (Auto) 0.7 Baso % (Auto) 0.1 Immature Gran # (Auto) 0.00 Neut # (Auto) 6.58 H Lymph # (Auto) 1.25 Bertie # (Auto) 0.41 Eos # (Auto) 0.06 Baso # (Auto) 0.01 Corrected WBC (Man) Sodium Potassium Chloride Carbon Dioxide Anion Gap BUN Creatinine Estimated GFR/1.73 m2 BUN/Creatinine Ratio Glucose Calculated Osmolality Calcium Total Bilirubin AST ALT Alkaline Phosphatase Total Protein Albumin Globulin Albumin/Globulin Ratio Urine Source Urine Color Urine Turbidity Urine pH Ur Specific Byron Urine Protein Ur Glucose (Stick) Ur Ketones (Stick) Urine Blood Urine Nitrite Urine Bilirubin Urobilinogen Dipstick Urine Leukocytes Urine WBC (Auto) Urine RBC (Auto) U Epithel Cells (Auto) Urine Bacteria (Auto) Urine Crystals Small Round Cells Urine Casts Urine Yeast-like Cells Orders Category Date Time Status [facility] [place] [place] Communication Order DIRECTED Care 12/05/16 16:52 Ordered HEAD W/O CONTRAST [CT] Stat Exams 12/05/16 15:00 Completed CBC WITH ELECTRONIC DIFF [HEME] Stat Lab 12/05/16 16:10 Results CMP [COMPREHENSIVE METABOLIC PANEL] [CHEM] Stat Lab 12/05/16 14:40 Completed UA NIMS W/REFLEX CULT [URINALYSIS] Stat Lab 12/05/16 15:53 Results URINE CULTURE [RM] Routine Lab 12/05/16 16:35 Received URINE MANUAL MICROSCOPIC [URINALYSIS] Stat Lab 12/05/16 15:53 Results Baclofen [Lioresal] Med 12/05/16 14:32 Discontinued 20 mg PO NOW ONE CefTRIAXONE [Rocephin] Med 12/05/16 16:52 Once 1 gm IM NOW ONE Lidocaine 1% Pf [Xylocaine-Mpf 1%] Med 12/05/16 16:52 Once 5 ml INJ NOW ONE Result Diagrams: 12/05/16 16:10 12/05/16 14:40 - REASSESSMENT Reassessment #1 Time Reassessed: 17:00 Status: improving (discussed management of UTI at home and rx for myoclonus) Departure - Departure Date of Disposition Decision: 12/05/16 Time of Disposition Decision: 17:01 DIAGNOSIS: Visit for feeding tube placement, Myoclonus UTI (urinary tract infection) Qualifiers: Urinary tract infection type: site unspecified Hematuria presence: without hematuria Qualified Code(s): N39.0 - Urinary tract infection, site not specified Altered mental state Qualifiers: Altered mental status type: persistent vegetative state Qualified Code(s): R40.3 - Persistent vegetative state Disposition: HOME 01 Certified Medical Emergency: Emergent Condition: Stable Prescriptions: Baclofen 10 mg PO BID #60 tablet Nitrofurantoin [Furadantin] 100 mg PO BID #400 oral.susp Referrals and Follow-Ups: Felton Ferguson Jr, MD [Primary Care Provider] - - Critical Care Note This patient required my direct & personal management of CC.: No This chart was documented by the indicated scribe, (Lynda Garcia Scribe) and accurately reflects the services I performed and decisions made by me, Rm Breaux MD, as attested by the provider's signature.
[2016-12-05] MEDS ORDERED: ROCEPHIN 1 GM/NS 1 GM/50 ML IVPB IV ONE (19:04)
[2016-12-05] MEDS ORDERED: NS 1,000 ML IV ONE (19:04)
--- NOTE | 2016-12-05 21:44 | Diag Imaging Result Doc PS360 ---
EXAM: CHEST-1 VIEW HISTORY: TO PUT IN A CENTRAL LINE TECHNIQUE: COMPARISON: 07/24/2016 FINDINGS: There is a right jugular line on the current exam. The tip overlies the distal superior vena cava. No pneumothorax. Lungs are well expanded and clear except for granuloma in the upper right lung. The heart is not enlarged. No pleural effusions identified. IMPRESSION: Right jugular line in good position with no postprocedural pneumothorax.. Electronically signed by Julian Aleman 12/05/2016 9:42 PM
--- NOTE | 2016-12-06 00:23 | HISTORY AND PHYSICAL ---
PRIMARY CARE PROVIDER: Dr. Felton Ferguson. [employer] ASSEMBLER: Dr. Emmy Cornell. CHIEF COMPLAINT: Per the mother, the patient is nonverbal, change in color of urine as well as overall change in the patient's normal condition. HISTORY OF PRESENT ILLNESS: Ms Jean-Baptiste is a 56-year-old female with a past medical history of brain cancer status post surgery who had postop seizures, postop CVA. She is now nonverbal with contractures of bilateral upper extremities as well as a lower extremity foot drop. She is also known to have hypertension. She was brought in by EMS because the mother had called related to just overall changes in her general status and a change in her urine color. She has had a chronic Melissa catheter since her last admission to the hospital. It has been being changed at [facility] with last change I believe 3 weeks ago. On arrival, the patient was noted to be tachycardic with a heart rate in the 130s. She also had tea-colored urine. She was very flushed and diaphoretic. Laboratory data was obtained which was grossly normal. Her urine, however, did show 4+ bacteria, too numerous to count WBCs, was leukocyte esterase and nitrate positive. A right inner jugular triple-lumen catheter was placed in the emergency room. The patient will be admitted to CICU for further evaluation and treatment. REVIEW OF SYSTEMS: Could not be obtained due to the patient's cognitive ability and nonverbal status. Mother denied any shortness of breath, cough, change in bowel habits. No blood in the stool. She was brought in primarily for the change in urine color. ALLERGY: Latex. HOME MEDICATIONS: A list is not been reconciled. An order was placed for nursing to reconcile home medication list. I believe the patient does take Keppra 500 mg b.i.d. and baclofen 10 mg b.i.d. Both of those were per PEG tube. Unsure on any other home medications. PAST MEDICAL HISTORY: See HPI. PREVIOUS SURGICAL HISTORY: Brain tumor resection, PEG tube placement, cholecystectomy. SOCIAL HISTORY: Lives at home with her mother and is cared by her mother. Denies tobacco, alcohol or illicit drug use or abuse. PHYSICAL EXAMINATION: VITAL SIGNS: Temperature 99 degrees, pulse 143, respirations 20, blood pressure 180/115, oxygen saturation 99% on room air. GENERAL: This is a 56-year-old female, nonverbal, lying in the bed. She has noted contractures, is in no acute distress. HEENT: Head is atraumatic, normocephalic. Extraocular eye movements could not be tested. PUPILS: Equal, round, reactive to light. Sclerae is anicteric. Conjunctivae is pink. Oral mucosa is dry. NECK: Supple. Right IJ triple-lumen central line noted. No JVD. Trachea is midline. CARDIOVASCULAR: S1-S2 appreciated. Sinus tachycardia noted on monitor. No murmurs, gallops or rubs. LUNGS: Clear to auscultation bilaterally. No rhonchi, wheezes or rales. Symmetrical rise and fall with respirations. ABDOMEN: Soft, nondistended, nontender. PEG tube noted which was recently changed by Dr. Cornell. No pulsatile mass. Bowel sounds present in all 4 quadrants hypoactive. EXTREMITY: No clubbing, cyanosis, or edema. Bilateral drop foot drop is noted. Lower extremities are cool to touch. 1+ pedal pulses bilaterally. NEUROLOGICAL: Nonverbal. Does reflex to painful stimulus. Does not follow commands. Bilateral upper extremities are contracted. Bilateral lower extremity foot drop is noted. MUSCULOSKELETAL: See above. DIAGNOSTIC DATA: CT of the head, stable from previous CT exam. Chest x-ray NAD. LABORATORY DATA: WBC 8.31, hemoglobin 14.8, hematocrit 46.1, platelet count 90, 000. Sodium 136, potassium 4.5, chloride 100, carbon dioxide 21, BUN 15, creatinine 0.5, glucose 102. Urine is nitrate and leukocyte esterase positive, too numerous to count WBCs, 4+ bacteria. ASSESSMENT AND PLAN: 1. Urinary tract infection with probable early sepsis. Fluid bolusing was started in the emergency room. We will continue normal saline at 125 mL an hour. An order was placed for the Melissa catheter to be changed. We will give Maxipime 2 g IV q.12 hours at this time. Blood cultures have been obtained. 2. Hypertension. The patient's home medication list is not available at this time. An order was placed for nursing to reconcile home medications. We will give hydralazine 10 mg IV q.6 hours as needed for blood pressure greater than 160. 3. History of brain cancer and multiple strokes with global deficits. The patient is bed bound. We will consult Physical Therapy. 4. Seizure disorder. Continue Keppra 100 mg p.o. b.i.d. as noted above. This is Dr. Felton Ferguson's patient. He will continue care in the morning. Further recommendations per him. Dictated by MELONY Márquez for Tavo Reza MD cc: MELONY Márquez MD Jeanette Keith, MD Roger H. Moss Jr, MD pt examined, agree with above APENOT MTDD
[2016-12-06] MEDS ORDERED: ZOFRAN IV PRN (00:52)
[2016-12-06] MEDS ORDERED: APRESOLINE IV PRN (00:52)
[2016-12-06] MEDS: PEPCID IV SCH ×2 (01:46→12:00)
[2016-12-06] MEDS: NS 1,000 ML IV SCH ×3 (01:46→21:23)
[2016-12-06] MEDS: MAXIPIME 2 GM/NS 2 GM/100 ML IVPB IV SCH ×2 (02:41→15:47)
[2016-12-06 05:41] LABS: BASO% 0.1 % (0.0-0.8); EOS# 0.08 X1000 (0.0-0.7); EOS% 1.1 % (0.0-10.0); HEMATOCRIT 40.2 % (37.0-47.0); HEMOGLOBIN 12.9 g/dL (12.0-16.0); LYMPH# 1.97 X1000 (1.2-3.4); LYMPH% 26.9 % (20.5-51.1); MANUAL DIFF NEEDED? NO; MCH 26.7 PG (27-31); MCHC 32.1 g/dL (33-37); MCV 83.2 FL (81-99); MONO# 0.53 X1000 (0.11-0.59); MONO% 7.3 % (1.7-9.3); NEUT% 64.6 % (42.2-75.2); PLT 92 X1000 (130-400); RBC 4.83 XMIL (4.2-5.4)
[2016-12-06 06:01] LABS: AGAP 13; BUN 11 mg/dL (8-22); CALCIUM 9.2 mg/dL (8.8-10.2); CHLORIDE 105 mmol/L (98-107); COSMO 285; MAGNESIUM 1.9 mg/dL (1.5-2.7); POTASSIUM 3.7 mmol/L (3.5-5.1); SODIUM 143 mmol/L (136-145); TCO2 25 mmol/L (25-35)
[2016-12-06] MEDS ORDERED: KEPPRA LIQUID PO SCH (09:00)
[2016-12-06] MEDS ORDERED: LIORESAL PO SCH (09:00)
[2016-12-06] MEDS: LOVENOX SUBQ SCH (09:43)
[2016-12-06] MEDS ORDERED: NS 1,000 ML ONE ×2 (09:57→14:59)
--- NOTE | 2016-12-06 18:25 | PROGRESS NOTE ---
DATE: 12/06/2016 This is a level [address] Ferguson. SUBJECTIVE: In brief, she is a 56-year-old, female, who was admitted last night by hospitalist with early sepsis syndrome from UTI. Patient is nonverbal. Patient has weak dense left hemiplegia. She is bedridden and mother was at the step-down unit. She was brought in by EMS. She has a prior history of brain cancer status post surgery, postop seizures. She had a PEG placement, Melissa catheter. Review of systems is nonverbal. Most of the history was obtained from the patient's mother. OBJECTIVE: Past medical history, past surgical history, medicines were reviewed. EXAMINATION: Vital Signs: Afebrile, tachycardic. Blood pressure is 140/80, 100% on room air. Input and output positive 600 mL. HEENT exam: Dry mucous membranes. Neck: Supple. Chest: Bilateral air entry. Heart: Sounds are regular. Abdomen: Belly is soft, and had a PEG placed. The left upper extremity is contracted. Melissa was seen. Extremities: No peripheral edema. INVESTIGATIONS: CBC: White cell count 7.3, hematocrit 40, platelets 92,000. SMA 7: Sodium 143, potassium 3.7, chloride 105, BUN 11, creatinine 0.4, glucose 105. LFTs were normal. TSH is 3.12. Urinalysis positive for infection with triple phosphate stones. Blood cultures and pending urine cultures gram-negative rods. ASSESSMENT AND PLAN: 1. Early sepsis syndrome, urinary tract infection, urinalysis positive for struvite stones. We will check the ultrasound of the kidneys. 2. Dehydration. IV fluids. 3. Deep venous thrombosis prophylaxis with Lovenox. 4. Gastrointestinal prophylaxis with intravenous Pepcid. 5. History of seizure disorder. Taking 100 mg/mL 5 mL twice daily. 6. Urinary tract infection. On cefepime. Waiting for cultures and sensitivity. 7. Nutrition through the enteral feeding with Isocal. 8. Thrombocytopenia. Stable. LEVEL OF DOCUMENTATION: Thirty-five minutes. We will reconcile the home medications. cc: MD Felton Landaverde Jr, MD
[2016-12-06] MEDS: PAMELOR PEG SCH (20:38)
[2016-12-06] MEDS: ATIVAN PO SCH (20:38)
[2016-12-06] MEDS: KEPPRA LIQUID PEG SCH (20:38)
[2016-12-06] MEDS: LIORESAL PEG SCH (20:38)
[2016-12-06] MEDS: NUEDEXTA 20-10 MG CAPSULE MISC SCH (20:38)
[2016-12-07] MEDS: NS 1,000 ML IV SCH ×3 (01:16→09:15)
[2016-12-07] MEDS: PEPCID IV SCH ×2 (01:16→12:40)
[2016-12-07] MEDS: MAXIPIME 2 GM/NS 2 GM/100 ML IVPB IV SCH (01:16)
[2016-12-07 05:37] LABS: BASO% 0.4 % (0.0-0.8); EOS# 0.14 X1000 (0.0-0.7); EOS% 3.1 % (0.0-10.0); HEMATOCRIT 35.8 % (37.0-47.0); HEMOGLOBIN 11.2 g/dL (12.0-16.0); LYMPH# 1.59 X1000 (1.2-3.4); LYMPH% 34.9 % (20.5-51.1); MANUAL DIFF NEEDED? NO; MCH 26.5 PG (27-31); MCHC 31.3 g/dL (33-37); MCV 84.8 FL (81-99); MONO# 0.34 X1000 (0.11-0.59); MONO% 7.5 % (1.7-9.3); NEUT% 54.1 % (42.2-75.2); PLT 79 X1000 (130-400); RBC 4.22 XMIL (4.2-5.4)
[2016-12-07 06:07] LABS: AGAP 10; BUN 10 mg/dL (8-22); CALCIUM 8.7 mg/dL (8.8-10.2); CHLORIDE 108 mmol/L (98-107); COSMO 287; POTASSIUM 3.3 mmol/L (3.5-5.1); SODIUM 144 mmol/L (136-145); TCO2 26 mmol/L (25-35)
[2016-12-07] MEDS: NUEDEXTA 20-10 MG CAPSULE MISC SCH ×2 (08:12→21:23)
[2016-12-07] MEDS: MIRALAX PEG SCH (08:12)
[2016-12-07] MEDS: LOVENOX SUBQ SCH (08:12)
[2016-12-07] MEDS: ATIVAN PO SCH ×2 (08:12→21:23)
[2016-12-07] MEDS: KEPPRA LIQUID PEG SCH ×2 (08:12→21:23)
--- NOTE | 2016-12-07 10:28 | Diag Imaging Result Doc PS360 ---
EXAM: US RENAL 2 (RETROPER) COMPLETE HISTORY: bailey/arf TECHNIQUE: Renal ultrasound COMMENT: The right kidney is 10.2 x 4.4 x 3.7 cm the left is 10 x 4.6 x 4.7 cm. There is no evidence of hydronephrosis masses or stones. The bladder is not distended and there is a Melissa catheter. IMPRESSION: No evidence of obstruction. Electronically signed by Teo Sinclair 12/07/2016 10:25 AM
[2016-12-07] MEDS: KEFZOL 1 GM/D5W 1 GM/50 ML IVPB IV SCH ×2 (10:42→17:00)
--- NOTE | 2016-12-07 11:35 | PROGRESS NOTE ---
DATE: 12/07/2016 SUBJECTIVE: Patient is nonverbal, bedridden. She is getting bathing. No significant complaints. Medicines are reconciled. REVIEW OF SYSTEMS: None reported. PHYSICAL EXAMINATION: Vital Signs: She is afebrile, 98.3. Pulse is 95, blood pressure is 130/58. 146 pounds. I's and O's positive 3 L. HEENT exam within normal limits. Chest is clear. Heart sounds are regular. PEG placed. She is bedridden and nonverbal, contracted. INVESTIGATIONS: CBC: White cell count 4.5, hematocrit 35, platelets 79,000. SMA-7: Sodium 144, potassium 3.3, chloride 108, and BUN is 10. Creatinine 0.4. Glucose 8.7. Magnesium 1.9. Urine analysis triple phosphate crystals present Escherichia coli ESBL negative. ASSESSMENT AND PLAN: 1. Urosepsis, stable hemodynamics. 2. Extended spectrum beta-lactamase Escherichia coli. Change the antibiotics to IV Ancef. 3. Nutrition through the Isocal through the PEG. 4. History of seizures. On Keppra 500 p.o. b.i.d. 5. Thrombocytopenia. Continue to monitor on Lovenox. 6. Gastrointestinal prophylaxis with IV Pepcid. 7. Triple phosphate crystals in the urine. Check the ultrasound of the kidneys today. 8. Hypokalemia and replace the potassium. LEVEL OF DOCUMENTATION: 25 minutes. cc: MD Felton Landaverde Jr, MD
[2016-12-07] MEDS: POTASSIUM CHLORIDE 20 MEQ/SWI 20 MEQ/100 ML IVPB IV SCH ×2 (11:36→12:39)
[2016-12-07] MEDS: PAMELOR PEG SCH (21:23)
[2016-12-07] MEDS: LIORESAL PEG SCH (21:23)
[2016-12-08] MEDS: PEPCID IV SCH ×2 (01:20→13:09)
[2016-12-08] MEDS: KEFZOL 1 GM/D5W 1 GM/50 ML IVPB IV SCH ×4 (01:20→16:37)
[2016-12-08] MEDS: KEPPRA LIQUID PEG SCH ×2 (08:09→21:30)
[2016-12-08] MEDS: ATIVAN PO SCH ×2 (08:10→21:30)
[2016-12-08] MEDS: LOVENOX SUBQ SCH (08:10)
[2016-12-08] MEDS: NUEDEXTA 20-10 MG CAPSULE MISC SCH ×2 (08:10→21:30)
[2016-12-08] MEDS: MIRALAX PEG SCH (08:10)
--- NOTE | 2016-12-08 09:43 | PROGRESS NOTE ---
DATE: 12/08/2016 SUBJECTIVE: Patient is nonverbal. No seizure activity noted. The patient's mother was not there at the bedside. She is tolerating the tube feed very well. REVIEW OF SYSTEMS: None reported from the nurses. PHYSICAL EXAMINATION: Vital Signs: She is afebrile, pulse is 98, blood pressure is 138/73. Input and outputs positive 700. HEENT: Examination within normal limits. Chest: Clear. Heart: Heart sounds are regular. Abdomen: Belly is soft, nontender. Good bowel sounds. Genitalia: Melissa catheter is seen. INVESTIGATIONS: CBC: White cell count 4.5, hematocrit 35, platelets 79,000. SMA 7: Sodium 144, potassium 3.3, chloride 108, BUN 10, creatinine 0.4, glucose 180. TSH is normal. Renal ultrasound is normal. Urine microbiology, E. coli, ESBL negative. ASSESSMENT AND PLAN: 1. Urosepsis, stable, due to extended-spectrum B-lactamase negative Escherichia coli. 2. Positive crystals in the urine dipstick. Followup renal ultrasound is negative. 3. Chronic thrombocytopenia, stable. 4. Deep venous thrombosis prophylaxis with Lovenox. 5. Gastrointestinal prophylaxis with intravenous Protonix. 6. Urinary tract infection, on intravenous Ancef. 7. Seizures, on intravenous Keppra. Also, consider using vitamin D. 8. Hypokalemia. Replace the potassium. LEVEL OF DOCUMENTATION: 25 minutes. cc: MD Felton Landaverde Jr, MD
[2016-12-08] MEDS ORDERED: POTASSIUM CHLORIDE 40 MEQ/SWI 40 MEQ/100 ML IVPB IV ONE (10:30)
[2016-12-08] MEDS: NS 1,000 ML IV SCH (13:09)
--- NOTE | 2016-12-08 19:43 | CONSULTATION ---
DATE OF CONSULTATION: 12/05/2016 REFERRING PHYSICIAN: Felton Ferguson M.D. INDICATION FOR CONSULTATION: Leaking PEG. HISTORY OF PRESENT ILLNESS: The patient is a 56-year-old, female who is followed in our clinic. She is on lifelong tube feedings due to dysphagia, epilepsy, recurrent aspiration, altered mental status and failure to thrive. Her mother reports that her tube is leaking. We plan bedside placement change. PAST MEDICAL HISTORY: 1. Brain cancer. 2. Hypertension. 3. Seizures. 4. Cerebral palsy. 5. Depression. 6. Gastroduodenitis. 7. Hiatal hernia. 8. History of colon polyps. 9. Bilateral hip fractures. PAST SURGICAL HISTORY: 1. Brain surgery. 2. Gastrostomy tube placement. 3. Multiple gastrostomy tube replacement. 4. [employer] shunt. MEDICATION ALLERGIES: Latex. HOME MEDICATIONS: 1. Zantac suspension 75 mg b.i.d. 2. MiraLAX 17 g daily. 3. Zegerid 40 mg 1 packet daily. 4. Pamelor 10 mg at bedtime. 5. Lorazepam 0.5 mg twice a day. 6. Lisinopril 40 mg b.i.d. 7. Levetiracetam 500 mg b.i.d. 8. Nuedexta 10/20 twice a day. 9. Baclofen 10 mg at bedtime. 10. Amlodipine 5 mg daily. REVIEW OF SYSTEMS: Unobtainable. SOCIAL HISTORY: Negative for alcohol, tobacco or recreational drug use. PHYSICAL EXAMINATION: Vital Signs: Her blood pressure is 161/91, pulse of 145 , respirations 26- 30. Her temperature is 99 degrees. General: She is somewhat tachypneic with a facial flushing which is new and different. She is also diaphoretic. Pulmonary: Breath sounds are coarse, but otherwise clear. No specific rhonchi or wheezing was heard. Cardiovascular: She has a regular rhythm with a resting tachycardia which is an interval change from her baseline. Abdominal: She has normoactive bowel sounds. Her abdomen is slightly distended, but is soft with no rebound or guarding. There is a PEG in the left upper quadrant. There is mild leakage around the tube. There does not appear to be evidence of infection in the tract. OBJECTIVE DATA: Reveals a hemoglobin of 14.8 with hematocrit of 46.1, and a white count of 8.31, with 90,000 platelets. Sodium is 136, potassium 4.5, chloride 100, CO2 21, BUN 15, creatinine 0.5 with a glucose of 102. Calcium is 9.8, total bilirubin 0.37, AST 32, ALT 25, alkaline phosphatase 163, total protein 8.1. Albumin 3.7. Her urinalysis reveals too numerous to count white blood cells and 20-40 red blood cells. IMPRESSION: 1. Leaking percutaneous endoscopic gastrostomy. 2. Hypertension. 3. Tachycardia. 4. Urinary tract infection. 5. Dehydration. 6. I suspect possible sepsis. RECOMMENDATION: 1. We will obtain a 24-Yoruba balloon replacement PEG and place the PEG at bedside. The consent was discussed with the patient's mother including the risks and benefits. 2. I am very concerned about the possibility of sepsis. I will discuss her overall state with the emergency room staff. 3. We will have the patient follow up in clinic in 3-6 months following hospital discharge. Her mother has our office number and is free to contact us for a more urgent appointment if she has difficulty with her feeding tube. 4. Once we change her feeding tube, she should resume her home regimen. cc: MD Felton Ceja Jr, MD MTDD
--- NOTE | 2016-12-08 20:13 | OPERATIVE NOTE ---
PROCEDURE DATE: 12/05/2016 REFERRING PHYSICIAN: Felton Ferguson M.D. INDICATION FOR PROCEDURE: Leaking PEG. PROCEDURE PERFORMED: Bedside PEG change without endoscopy. CONSENT: Informed consent was obtained from the patient's mother prior to the procedure. The risks, benefits, and alternatives were discussed. MEDICATION: None. COMPLICATIONS: None. ESTIMATED BLOOD LOSS: None. FINDINGS: The existing PEG was visualized in the left upper quadrant. The skin was cleaned with alcohol. The existing balloon was deflated and only 5 mL of water was present suggesting that the balloon was leaking internally. The PEG was withdrawn easily through the abdominal tract with no trauma. A new 24-Mal[place] [employer] replacement PEG lot number [id number] was inserted into the tract and 15 mL was placed into the 20 mL balloon. The PEG rotated freely without evidence of leakage. 30 mL of water was easily flushed into the gastric lumen without difficulty. The PEG was secured at 4 cm at the skin and 5-1/2 cm at the external bumper. The skin was again cleaned with alcohol and Betadine prior to a sterile dressing being placed. PERFORMING PHYSICIAN: Emmy Cornell M.D. ASSISTANTS: Denisha Zeng RN. RECOMMENDATION: 1. Continue usual PEG care. 2. Resume home tube feedings and medications. 3. The feeding tube is approved for immediate use. 4. Will have the patient follow up in clinic in 3-6 months for routine followup. Her mother has our contact information should she have any difficulty prior to that time. cc: MD Felton Ceja Jr, MD MTDD
[2016-12-08] MEDS: LIORESAL PEG SCH (21:30)
[2016-12-08] MEDS: PAMELOR PEG SCH (21:30)
[2016-12-09] MEDS: PEPCID IV SCH ×2 (01:31→11:58)
[2016-12-09] MEDS: KEFZOL 1 GM/D5W 1 GM/50 ML IVPB IV SCH ×3 (01:31→17:47)
[2016-12-09] MEDS: NS 1,000 ML IV SCH (05:18)
[2016-12-09] MEDS: MIRALAX PEG SCH (08:26)
[2016-12-09] MEDS: KEPPRA LIQUID PEG SCH ×2 (08:26→21:35)
[2016-12-09] MEDS: LOVENOX SUBQ SCH (08:27)
[2016-12-09] MEDS: ATIVAN PO SCH ×2 (08:27→21:35)
[2016-12-09] MEDS: VITAMIN D PO SCH (08:27)
[2016-12-09] MEDS: NUEDEXTA 20-10 MG CAPSULE MISC SCH ×2 (08:32→21:35)
--- NOTE | 2016-12-09 15:36 | PROGRESS NOTE ---
DATE: 12/09/2016 SUBJECTIVE: Patient is doing better, basically mother was at the bedside. No complaints reported. She is receiving Isocal in the night time until in the morning. No seizure activity. Patient is nonverbal. PHYSICAL EXAMINATION: Vital signs: Afebrile. Pulse is 94, blood pressure is 150/84. Room air 100%. Input and output: Positive 900 mL. General appearance: She is nonverbal. Bedridden. Chest: Clear. Heart: Sounds are regular. Abdomen: Belly is soft, nontender. Good bowel sounds. : Melissa catheter was present. Extremities: Contracted. INVESTIGATIONS: No laboratory were drawn. Microbiology: Blood cultures were negative and urine culture showed Escherichia coli. ASSESSMENT AND PLAN: 1. Urinary tract infection. Patient has a chronic indwelling Melissa catheter, changes once a month since 07/11. Ancef 1 g IV q.8. 2. Nutritional support with IV fluids and Isocal. 3. Gastrointestinal: Continue intravenous Pepcid. 4. Deep venous thrombosis prophylaxis with Lovenox. 5. Vitamin D replacement with cholecalciferol. 6. Seizure disorder on Keppra. Plan of care discussed. We will repeat the labs in the morning, CBC and SMA7. Hopefully she can go back home in the middle of this week and Dr. Ferguson is going to follow up. LEVEL OF DOCUMENTATION: 25 minutes. cc: MD Felton Landaverde Jr, MD MTDD
[2016-12-09] MEDS: PAMELOR PEG SCH (21:35)
[2016-12-09] MEDS: LIORESAL PEG SCH (21:35)
[2016-12-10] MEDS: PEPCID IV SCH ×2 (01:40→12:35)
[2016-12-10] MEDS: KEFZOL 1 GM/D5W 1 GM/50 ML IVPB IV SCH ×3 (01:40→16:17)
[2016-12-10] MEDS: NS 1,000 ML IV SCH ×2 (03:28→23:30)
[2016-12-10 06:00] LABS: HEMATOCRIT 36.1 % (37.0-47.0); HEMOGLOBIN 11.5 g/dL (12.0-16.0); MCH 27.1 PG (27-31); MCHC 31.9 g/dL (33-37); MCV 84.9 FL (81-99); PLT 78 X1000 (130-400); RBC 4.25 XMIL (4.2-5.4)
[2016-12-10 06:06] LABS: AGAP 10; BUN 6 mg/dL (8-22); CALCIUM 8.8 mg/dL (8.8-10.2); CHLORIDE 107 mmol/L (98-107); COSMO 288; POTASSIUM 3.7 mmol/L (3.5-5.1); SODIUM 145 mmol/L (136-145); TCO2 28 mmol/L (25-35)
[2016-12-10] MEDS: NUEDEXTA 20-10 MG CAPSULE MISC SCH ×2 (08:39→21:23)
[2016-12-10] MEDS: KEPPRA LIQUID PEG SCH ×2 (08:39→21:23)
[2016-12-10] MEDS: ATIVAN PO SCH ×2 (08:39→21:23)
[2016-12-10] MEDS: LOVENOX SUBQ SCH (08:39)
[2016-12-10] MEDS: VITAMIN D PO SCH (08:39)
[2016-12-10] MEDS: MIRALAX PEG SCH (08:39)
[2016-12-10] MEDS: PAMELOR PEG SCH (21:23)
[2016-12-10] MEDS: LIORESAL PEG SCH (21:23)
[2016-12-11] MEDS: PEPCID IV SCH ×2 (01:38→12:13)
[2016-12-11] MEDS: KEFZOL 1 GM/D5W 1 GM/50 ML IVPB IV SCH ×3 (01:38→17:16)
[2016-12-11 07:59] LABS: URINE MICRO REVIEW NEEDED? NO; URINE SOURCE CATH
[2016-12-11 08:05] LABS: BILIRUBIN URINE NEGATIVE (NEGATIVE); BLOOD URINE NEGATIVE (NEGATIVE); COLOR YELLOW; GLUCOSE URINE NEGATIVE (NEGATIVE); LEUKOCYTES URINE SMALL (NEGATIVE); NITRITE URINE NEGATIVE (NEGATIVE); PROTEIN URINE NEGATIVE (NEGATIVE); SP GRAVITY URINE 1.006; TURBIDITY URINE CLEAR (CLEAR); UROBILINOGEN URINE NORMAL (NORMAL)
[2016-12-11 08:07] LABS: UR EPITHELIAL CELLS <10 /HPF (<10); URINE BACTERIA NEGATIVE /HPF; URINE CULTURE NEEDED? YES; URINE RBC <10 /HPF (<10)
--- NOTE | 2016-12-11 08:20 | PROGRESS NOTE ---
DATE: 12/11/2016 SUBJECTIVE: The patient is nonverbal. She does keep her eyes open. OBJECTIVE: Vital signs show a temperature of 98.9 degrees Fahrenheit; earlier, it was 99.2 degrees Fahrenheit. Pulse rate was 110 earlier; it is 98 now. Blood pressure earlier was 179/87 and is 160/79 now. O2 saturations 100% on room air. HEENT: Unchanged. The patient has had a brain tumor in the past. Neck is supple. Lungs are clear to auscultation and percussion without rhonchi, rales, or wheezes. Heart regular rate and rhythm without murmurs, gallops, or friction rubs. She has a sinus tachycardia. Abdomen soft. Active bowel sounds. No organomegaly or tenderness. Neurologic exam is unchanged. Patient has had bilateral femoral fractures not too long ago. ASSESSMENT: 1. Urinary tract infection. 2. Malfunction of PEG tube; now replaced. 3. Questionable sepsis initially, but blood cultures are negative. 4. Seizure disorder. 5. Hypertension, uncontrolled. Patient is on IV antibiotics, cefazolin and Escherichia coli that she is growing in her urine is sensitive to that. We will do another urinalysis today to see if it has cleared or not. She is still running a low-grade Temperature. PLAN: We will do the urinalysis. We will try to control blood pressure better. cc: Felton Ferguson Jr, MD
[2016-12-11] MEDS: KEPPRA LIQUID PEG SCH ×2 (08:28→20:01)
[2016-12-11] MEDS: MIRALAX PEG SCH (08:28)
[2016-12-11] MEDS: NORVASC PEG SCH (08:29)
[2016-12-11] MEDS: VITAMIN D PO SCH (08:29)
[2016-12-11] MEDS: PRINIVIL PEG SCH ×2 (08:29→20:01)
[2016-12-11] MEDS: ATIVAN PO SCH ×2 (08:29→20:01)
[2016-12-11] MEDS: LOVENOX SUBQ SCH (08:29)
[2016-12-11] MEDS: NUEDEXTA 20-10 MG CAPSULE MISC SCH ×2 (08:29→20:01)
--- NOTE | 2016-12-11 14:17 | PROGRESS NOTE ---
DATE: 12/10/2016 SUBJECTIVE: does not communicate much. Her condition is stable. She is receiving PEG tube feeding. She had a tibial plateau fracture. She is getting IV Pepcid, DVT prophylaxis, nutritional supplement, and she is on Keppra for seizures. Overall condition is stable. cc: MD Felton Ashraf Jr, MD
[2016-12-11] MEDS: NS 1,000 ML IV SCH (17:16)
[2016-12-11] MEDS: PAMELOR PEG SCH (20:00)
[2016-12-11] MEDS: LIORESAL PEG SCH (20:01)
[2016-12-12] MEDS: KEFZOL 1 GM/D5W 1 GM/50 ML IVPB IV SCH ×4 (00:27→16:51)
[2016-12-12] MEDS: PEPCID IV SCH ×2 (00:27→14:54)
[2016-12-12 05:21] LABS: BASO% 0.2 % (0.0-0.8); EOS# 0.17 X1000 (0.0-0.7); EOS% 3.3 % (0.0-10.0); HEMATOCRIT 37.7 % (37.0-47.0); HEMOGLOBIN 12.1 g/dL (12.0-16.0); LYMPH# 1.98 X1000 (1.2-3.4); LYMPH% 38.6 % (20.5-51.1); MANUAL DIFF NEEDED? NO; MCHC 32.1 g/dL (33-37); MCV 84.2 FL (81-99); MONO# 0.35 X1000 (0.11-0.59); MONO% 6.8 % (1.7-9.3); NEUT% 51.1 % (42.2-75.2); PLT 95 X1000 (130-400); RBC 4.48 XMIL (4.2-5.4)
[2016-12-12 05:39] LABS: AGAP 12; BUN 7 mg/dL (8-22); CALCIUM 9.1 mg/dL (8.8-10.2); CHLORIDE 105 mmol/L (98-107); COSMO 287; POTASSIUM 3.8 mmol/L (3.5-5.1); SODIUM 144 mmol/L (136-145); TCO2 27 mmol/L (25-35)
[2016-12-12] MEDS: PRINIVIL PEG SCH ×2 (07:59→21:15)
[2016-12-12] MEDS: NUEDEXTA 20-10 MG CAPSULE MISC SCH ×2 (07:59→21:15)
[2016-12-12] MEDS: ATIVAN PO SCH ×2 (07:59→21:15)
[2016-12-12] MEDS: MIRALAX PEG SCH (07:59)
[2016-12-12] MEDS: LOVENOX SUBQ SCH (08:00)
[2016-12-12] MEDS: VITAMIN D PO SCH (08:00)
[2016-12-12] MEDS: NORVASC PEG SCH (08:00)
[2016-12-12] MEDS: KEPPRA LIQUID PEG SCH ×2 (08:01→21:15)
--- NOTE | 2016-12-12 08:22 | PROGRESS NOTE ---
DATE: 12/12/2016 SUBJECTIVE: The patient is noncommunicative. OBJECTIVE: Vital Signs: A temperature of 98.5 degrees Fahrenheit. Blood pressure 137/73, respirations 14, pulse 89, blood pressure has come down a little bit. HEENT: She is normocephalic. Lungs: Clear to auscultation and percussion without rhonchi, rales, or wheezes. Heart: Regular rate and rhythm without murmurs, gallops, or friction rubs. Abdomen: Soft. Active bowel sounds. No organomegaly or tenderness. Neurological: Unchanged. LABORATORY DATA: Urinalysis with a cath urine showed 10-20 WBCs. She is pending growing out Escherichia coli from her urine that was sensitive to the antibiotics used. ASSESSMENT: 1. Urinary tract infection. 2. Malfunctioning PEG tube now replaced. 3. Seizure disorder. 4. Status post brain tumor. 5. Hypertension. PLAN: We will add Macrobid 100 mg p.o. b.i.d. to her regimen. It actually is going to be through the PEG tube. I have restarted some of her blood pressure medications. We will get another urinalysis tomorrow. Culture is pending. Her preliminary report has no growth. No yeast was mentioned on the urinalysis. cc: Felton Ferguson Jr, MD
[2016-12-12] MEDS: MACROBID PEG SCH ×2 (09:39→21:15)
[2016-12-12] MEDS: NS 1,000 ML IV SCH (14:54)
[2016-12-12] MEDS: PAMELOR PEG SCH (21:15)
[2016-12-12] MEDS: LIORESAL PEG SCH (21:15)
[2016-12-13] MEDS: KEFZOL 1 GM/D5W 1 GM/50 ML IVPB IV SCH ×3 (00:35→17:51)
[2016-12-13] MEDS: PEPCID IV SCH ×2 (00:35→12:56)
[2016-12-13 04:38] LABS: URINE MICRO REVIEW NEEDED? NO; URINE SOURCE CATH
[2016-12-13 04:46] LABS: BILIRUBIN URINE NEGATIVE (NEGATIVE); BLOOD URINE NEGATIVE (NEGATIVE); COLOR YELLOW; GLUCOSE URINE NEGATIVE (NEGATIVE); LEUKOCYTES URINE SMALL (NEGATIVE); NITRITE URINE NEGATIVE (NEGATIVE); PH URINE 6.5; PROTEIN URINE TRACE mg/dL (NEGATIVE); SP GRAVITY URINE 1.022; TURBIDITY URINE CLEAR (CLEAR); UROBILINOGEN URINE NORMAL (NORMAL)
[2016-12-13 04:48] LABS: UR EPITHELIAL CELLS <10 /HPF (<10); URINE BACTERIA NEGATIVE /HPF; URINE RBC <10 /HPF (<10)
[2016-12-13 05:34] LABS: BASO% 0.2 % (0.0-0.8); EOS# 0.13 X1000 (0.0-0.7); HEMATOCRIT 36.3 % (37.0-47.0); HEMOGLOBIN 11.5 g/dL (12.0-16.0); LYMPH# 1.59 X1000 (1.2-3.4); LYMPH% 36.2 % (20.5-51.1); MANUAL DIFF NEEDED? YES; MCHC 31.7 g/dL (33-37); MCV 85.2 FL (81-99); MONO# 0.32 X1000 (0.11-0.59); MONO% 7.3 % (1.7-9.3); NEUT% 53.3 % (42.2-75.2); PLT 97 X1000 (130-400); RBC 4.26 XMIL (4.2-5.4)
[2016-12-13 06:04] LABS: AGAP 10; BUN 8 mg/dL (8-22); CALCIUM 8.9 mg/dL (8.8-10.2); CHLORIDE 105 mmol/L (98-107); COSMO 285; POTASSIUM 3.8 mmol/L (3.5-5.1); SODIUM 143 mmol/L (136-145); TCO2 28 mmol/L (25-35)
[2016-12-13 07:14] LABS: EOS 3 % (1-10); LARGE PLATELETS 2+; LYMPHS 24 % (21-51); MONO 4 % (1-9)
[2016-12-13] MEDS: VITAMIN D PO SCH (08:47)
[2016-12-13] MEDS: NORVASC PEG SCH (08:47)
[2016-12-13] MEDS: NUEDEXTA 20-10 MG CAPSULE MISC SCH ×2 (08:47→21:38)
[2016-12-13] MEDS: KEPPRA LIQUID PEG SCH ×2 (08:48→21:37)
[2016-12-13] MEDS: MACROBID PEG SCH ×2 (08:49→21:38)
[2016-12-13] MEDS: MIRALAX PEG SCH (08:49)
[2016-12-13] MEDS: PRINIVIL PEG SCH ×2 (08:49→21:39)
[2016-12-13] MEDS: ATIVAN PO SCH ×2 (08:49→21:39)
[2016-12-13] MEDS: LOVENOX SUBQ SCH (08:49)
--- NOTE | 2016-12-13 09:57 | PROGRESS NOTE ---
DATE: 12/13/2016 SUBJECTIVE: Patient is noncommunicative. OBJECTIVE: Blood pressure is 131/56, respirations 16, pulse 93, temperature 98.1 degrees Fahrenheit. Oxygen saturation is 96% on room air. HEENT is unchanged. Neck supple. Lungs are clear to auscultation and percussion without rhonchi, rales, or wheezes. Heart: Regular rate and rhythm without murmurs, gallops, or friction rubs. Abdomen soft. Active bowel sounds. No organomegaly or tenderness. White count 4390. Hemoglobin 11.5. Electrolytes essentially normal. Still has 10-20 WBCs on her catheterized urine specimen after adding Macrobid yesterday. She is growing gram-positive cocci in the urine but final report is not back. She is on cefazolin and Macrobid now. Initially, she grew out Escherichia coli and was sensitive to both of those antibiotics. The Cefazolin is what was started initially and then I added Macrobid. Yesterday, she had a low-grade temp but does not have one today so far. ASSESSMENT: 1. Status post brain tumor. 2. Urinary tract infection. 3. Dysfunctional PEG tube, now working well. PLAN: Continue to treat. Because of her generalized debilitated condition, I did not want to send her home just on oral antibiotics without making sure that the culture reflects the proper choice of antibiotics and that she is afebrile. cc: Felton Ferguson Jr, MD
[2016-12-13] MEDS: NS 1,000 ML IV SCH (10:51)
[2016-12-13] MEDS: PAMELOR PEG SCH (21:38)
[2016-12-13] MEDS: LIORESAL PEG SCH (21:39)
[2016-12-14] MEDS: PEPCID IV SCH ×3 (00:41→23:41)
[2016-12-14] MEDS: SODIUM CHLORIDE 0.9% INJ SCH ×3 (00:42→23:41)
[2016-12-14] MEDS: KEFZOL 1 GM/D5W 1 GM/50 ML IVPB IV SCH ×3 (00:42→17:03)
[2016-12-14] MEDS: NS 1,000 ML IV SCH (05:41)
[2016-12-14 05:54] LABS: BASO% 0.2 % (0.0-0.8); HEMATOCRIT 36.1 % (37.0-47.0); HEMOGLOBIN 11.4 g/dL (12.0-16.0); LYMPH# 1.44 X1000 (1.2-3.4); LYMPH% 28.7 % (20.5-51.1); MANUAL DIFF NEEDED? NO; MCHC 31.6 g/dL (33-37); MCV 85.5 FL (81-99); MONO# 0.36 X1000 (0.11-0.59); MONO% 7.2 % (1.7-9.3); NEUT% 59.9 % (42.2-75.2); PLT 88 X1000 (130-400); RBC 4.22 XMIL (4.2-5.4)
[2016-12-14 06:02] LABS: AGAP 9; BUN 7 mg/dL (8-22); CALCIUM 8.8 mg/dL (8.8-10.2); CHLORIDE 104 mmol/L (98-107); COSMO 282; POTASSIUM 3.6 mmol/L (3.5-5.1); SODIUM 142 mmol/L (136-145); TCO2 29 mmol/L (25-35)
[2016-12-14] MEDS: NUEDEXTA 20-10 MG CAPSULE MISC SCH ×2 (09:38→21:45)
[2016-12-14] MEDS: MACROBID PEG SCH ×2 (09:38→21:45)
[2016-12-14] MEDS: MIRALAX PEG SCH (09:38)
[2016-12-14] MEDS: ATIVAN PO SCH ×2 (09:38→21:46)
[2016-12-14] MEDS: LOVENOX SUBQ SCH (09:38)
[2016-12-14] MEDS: VITAMIN D PO SCH (09:38)
[2016-12-14] MEDS: KEPPRA LIQUID PEG SCH ×2 (09:38→21:45)
[2016-12-14] MEDS: PRINIVIL PEG SCH ×2 (09:38→21:45)
[2016-12-14] MEDS: NORVASC PEG SCH ×2 (09:39→21:45)
--- NOTE | 2016-12-14 11:04 | PROGRESS NOTE ---
DATE: 12/14/2016 SUBJECTIVE: Patient is not communicative. OBJECTIVE: Vital signs show blood pressure is up at 177/84; earlier, it was 180/85, temperature is 97.6 degrees Fahrenheit, pulse 104. O2 saturations 100%, respirations 18. HEENT: She is normocephalic for the most part. She has had a brain tumor. Lungs are clear to auscultation and percussion without rhonchi, rales, or wheezes. Heart has regular rate and rhythm to sinus tachycardia without murmurs, gallops, or friction rubs. Abdomen soft. Active bowel sounds. No organomegaly or tenderness. Neurological exam unchanged. Patient is just not moving much. She cannot hold herself up. This is a chronic problem. She is in with a UTI but, because of her debilitated state, I felt like I needed to keep her in the hospital until she quits running a fever and we have more information on her UTI. She did have a temperature of 99.2 degrees Fahrenheit earlier today. Awaiting final report, but she was growing out Escherichia coli and did have pus in her urine recently. ASSESSMENT: 1. Urinary tract infection. 2. Status post brain tumor. 3. Uncontrolled hypertension. PLAN: We will increase her Norvasc. cc: Felton Ferguson Jr, MD
[2016-12-14] MEDS: LIORESAL PEG SCH (21:44)
[2016-12-14] MEDS: PAMELOR PEG SCH (21:46)
[2016-12-15] MEDS: KEFZOL 1 GM/D5W 1 GM/50 ML IVPB IV SCH (00:39)
[2016-12-15] MEDS: NS 1,000 ML IV SCH ×2 (00:41→22:09)
[2016-12-15] MEDS ORDERED: LOPRESSOR PO ONE (00:58)
[2016-12-15] MEDS: NUEDEXTA 20-10 MG CAPSULE MISC SCH ×2 (10:10→22:05)
[2016-12-15] MEDS: MACROBID PEG SCH ×2 (10:10→22:05)
[2016-12-15] MEDS: ATIVAN PO SCH ×2 (10:10→22:05)
[2016-12-15] MEDS: VITAMIN D PO SCH (10:10)
[2016-12-15] MEDS: MIRALAX PEG SCH (10:10)
[2016-12-15] MEDS: PRINIVIL PEG SCH ×2 (10:11→22:05)
[2016-12-15] MEDS: NORVASC PEG SCH ×2 (10:11→22:05)
[2016-12-15] MEDS: LOVENOX SUBQ SCH (10:11)
[2016-12-15] MEDS: KEPPRA LIQUID PEG SCH ×2 (10:11→22:08)
--- NOTE | 2016-12-15 10:27 | PROGRESS NOTE ---
DATE: 12/15/2016 SUBJECTIVE: The patient is noncommunicative. OBJECTIVE: Vital Signs: Temperature of 99.8 degrees Fahrenheit. Pulse rate of 120, that has come down to 92. Blood pressure was 185/73. Added metoprolol and it is 142/83, now. Respirations 16 and unlabored, HEENT: Unchanged. She has had brain surgery in the past for tumor. Neck: Supple. Lungs: Clear to auscultation and percussion without rhonchi, rales, or wheezes. Heart: Regular rate and rhythm without murmurs, gallops, or friction rubs. Abdomen: Soft. Active bowel sounds. No organomegaly or tenderness. Neurologic: Unchanged. LABORATORY DATA: Growing enterococcus in her urine. It is sensitive to Macrobid. We will stop the cephalosporin. He was resistant to vancomycin and ampicillin. Urine in her Melissa bag appears clear. We will repeat a urinalysis tomorrow. ASSESSMENT: 1. Urinary tract infection. 2. Dysfunctional PEG tube. Now working. 3. Status post brain tumor. 4. General debilitated state. PLAN: Repeat urinalysis tomorrow. Continue Macrobid. cc: Felton Ferguson Jr, MD
[2016-12-15] MEDS: PEPCID IV SCH ×2 (12:51→23:31)
[2016-12-15] MEDS: SODIUM CHLORIDE 0.9% INJ SCH (12:51)
[2016-12-15 18:29] LABS: URINE MICRO REVIEW NEEDED? NO; URINE SOURCE CATH
[2016-12-15 18:39] LABS: BILIRUBIN URINE NEGATIVE (NEGATIVE); BLOOD URINE NEGATIVE (NEGATIVE); COLOR YELLOW; GLUCOSE URINE NEGATIVE (NEGATIVE); SP GRAVITY URINE 1.015; TURBIDITY URINE CLEAR (CLEAR)
[2016-12-15 18:40] LABS: LEUKOCYTES URINE LARGE (NEGATIVE); NITRITE URINE NEGATIVE (NEGATIVE); PROTEIN URINE NEGATIVE (NEGATIVE); UROBILINOGEN URINE 2 mg/dL (NORMAL)
[2016-12-15 18:42] LABS: URINE WBC 20-40 /HPF (<10)
[2016-12-15 18:43] LABS: URINE RBC <10 /HPF (<10)
[2016-12-15 18:44] LABS: UR EPITHELIAL CELLS <10 /HPF (<10)
[2016-12-15 18:45] LABS: URINE BACTERIA 2+ /HPF
[2016-12-15] MEDS: PAMELOR PEG SCH (22:05)
[2016-12-15] MEDS: LIORESAL PEG SCH (22:05)
[2016-12-16 05:04] LABS: BASO% 0.3 % (0.0-0.8); EOS# 0.32 X1000 (0.0-0.7); EOS% 5.3 % (0.0-10.0); HEMATOCRIT 36.5 % (37.0-47.0); HEMOGLOBIN 11.4 g/dL (12.0-16.0); LYMPH# 1.75 X1000 (1.2-3.4); LYMPH% 28.9 % (20.5-51.1); MANUAL DIFF NEEDED? NO; MCH 26.6 PG (27-31); MCHC 31.2 g/dL (33-37); MCV 85.3 FL (81-99); MONO% 6.6 % (1.7-9.3); NEUT% 58.9 % (42.2-75.2); PLT 101 X1000 (130-400); RBC 4.28 XMIL (4.2-5.4)
[2016-12-16 05:20] LABS: AGAP 7; BUN 10 mg/dL (8-22); CALCIUM 8.9 mg/dL (8.8-10.2); CHLORIDE 103 mmol/L (98-107); COSMO 278; POTASSIUM 3.8 mmol/L (3.5-5.1); SODIUM 139 mmol/L (136-145); TCO2 29 mmol/L (25-35)
--- NOTE | 2016-12-16 09:23 | PROGRESS NOTE ---
DATE: 12/16/2016 SUBJECTIVE: The patient is noncommunicative. OBJECTIVE: Vital Signs: Temperature 99.2 degrees Fahrenheit, blood pressure 108/82, respirations 16. Oxygen saturations 98%. Laboratory Data: Urinalysis from yesterday still showed 20-40 WBCs/HPF which is actually an increase. She has enterococcus in her urine, sensitive to only Macrobid. CBC and electrolytes are essentially normal. The patient has had a Melissa catheter in since July of this year. Physical Examination: HEENT: Unchanged. Lungs: Clear to auscultation and percussion without rhonchi, rales, or wheezes. Heart: Regular rate and rhythm without murmurs, gallops, or friction rubs. Abdomen: Soft. Active bowel sounds. No organomegaly or tenderness. Neurological: Examination unchanged. She has had previous brain tumor and some paralysis from that. ASSESSMENT: 1. Urinary tract infection. 2. Dysfunctional percutaneous endoscopic gastrostomy tube, now working. 3. Status post brain tumor. PLAN: We will remove Melissa catheter, do a catheterized urine specimen Friday morning. Continue the Macrobid. cc: Felton Ferguson Jr, MD
[2016-12-16] MEDS: ATIVAN PO SCH ×2 (10:08→21:44)
[2016-12-16] MEDS: KEPPRA LIQUID PEG SCH ×2 (10:08→21:45)
[2016-12-16] MEDS: NORVASC PEG SCH ×2 (10:08→21:45)
[2016-12-16] MEDS: VITAMIN D PO SCH (10:09)
[2016-12-16] MEDS: NUEDEXTA 20-10 MG CAPSULE MISC SCH ×2 (10:09→21:45)
[2016-12-16] MEDS: PRINIVIL PEG SCH ×2 (10:29→21:46)
[2016-12-16] MEDS: LOVENOX SUBQ SCH (10:29)
[2016-12-16] MEDS: MACROBID PEG SCH ×2 (10:29→21:45)
[2016-12-16] MEDS: MIRALAX PEG SCH (10:29)
[2016-12-16] MEDS: PEPCID IV SCH (12:09)
[2016-12-16] MEDS: NS 1,000 ML IV SCH (17:58)
[2016-12-16] MEDS: LIORESAL PEG SCH (21:45)
[2016-12-16] MEDS: PAMELOR PEG SCH (21:45)
[2016-12-17] MEDS: PEPCID IV SCH ×2 (04:43→17:35)
[2016-12-17] MEDS: SODIUM CHLORIDE 0.9% INJ SCH (04:43)
[2016-12-17 05:14] LABS: BASO% 0.8 % (0.0-0.8); EOS# 0.17 X1000 (0.0-0.7); EOS% 3.6 % (0.0-10.0); HEMATOCRIT 35.2 % (37.0-47.0); HEMOGLOBIN 10.8 g/dL (12.0-16.0); LYMPH# 1.76 X1000 (1.2-3.4); LYMPH% 37.2 % (20.5-51.1); MANUAL DIFF NEEDED? NO; MCH 26.5 PG (27-31); MCHC 30.7 g/dL (33-37); MCV 86.3 FL (81-99); MONO% 8.5 % (1.7-9.3); NEUT% 49.9 % (42.2-75.2); PLT 97 X1000 (130-400); RBC 4.08 XMIL (4.2-5.4)
[2016-12-17 05:23] LABS: AGAP 9; BUN 9 mg/dL (8-22); CHLORIDE 105 mmol/L (98-107); COSMO 283; POTASSIUM 3.7 mmol/L (3.5-5.1); SODIUM 142 mmol/L (136-145); TCO2 28 mmol/L (25-35)
[2016-12-17] MEDS: MIRALAX PEG SCH (08:52)
[2016-12-17] MEDS: MACROBID PEG SCH ×2 (08:52→21:47)
[2016-12-17] MEDS: KEPPRA LIQUID PEG SCH ×2 (08:52→21:46)
[2016-12-17] MEDS: NORVASC PEG SCH ×2 (08:52→21:47)
[2016-12-17] MEDS: VITAMIN D PO SCH (08:52)
[2016-12-17] MEDS: LOVENOX SUBQ SCH (08:52)
[2016-12-17] MEDS: PRINIVIL PEG SCH ×2 (08:52→21:47)
[2016-12-17] MEDS: NUEDEXTA 20-10 MG CAPSULE MISC SCH ×2 (08:52→21:47)
[2016-12-17] MEDS: ATIVAN PO SCH ×2 (08:52→21:46)
--- NOTE | 2016-12-17 11:29 | PROGRESS NOTE ---
DATE: 12/17/2016 SUBJECTIVE: The patient is noncommunicative. OBJECTIVE: Vital signs: Temp is 99.9 degrees Fahrenheit, pulse 115, respirations 23, blood pressure 152/78. HEENT: She is normocephalic. EOMs intact. PERRLA. Throat clear. Lungs: Clear to auscultation and percussion without rhonchi, rales, or wheezes. Heart: Regular rate and rhythm without murmurs, gallops, or friction rubs. Abdomen: Soft with active bowel sounds. Neurological: Exam unchanged. Patient has enterococcus in her urine sensitive to Macrobid. Melissa catheter was removed yesterday. Tip culture results are pending. The patient is still running a low-grade temp. ASSESSMENT: Urinary tract infection with resistant infection, initially Escherichia coli and then enterococcus that is resistant to vancomycin and ampicillin. PLAN: We will repeat catheterize urine in the morning. We will try to find out arrangements as the family says the patient was going into a retirement at least under hospice for short-term while they were going to be out of town as she normally stays with them. We will try and find out the details of that for possible discharge tomorrow, unless she spikes a higher fever or there is a change in her urine that is considerable. I do feel like because this patient has been debilitated and cannot communicate that we have had to be more aggressive with her treatment as she has a resistant urinary tract infection. My plan is that if the urine is relatively clear tomorrow to discharge her on Macrobid 100 mg p.o. b.i.d. for 2 weeks. cc: Felton Ferguson Jr, MD
[2016-12-17] MEDS: NS 1,000 ML IV SCH (14:06)
[2016-12-17] MEDS: LIORESAL PEG SCH (21:47)
[2016-12-17] MEDS: PAMELOR PEG SCH (21:47)
[2016-12-18] MEDS: SODIUM CHLORIDE 0.9% INJ SCH (04:13)
[2016-12-18] MEDS: PEPCID IV SCH (04:13)
[2016-12-18 05:10] LABS: BASO% 0.2 % (0.0-0.8); EOS# 0.18 X1000 (0.0-0.7); EOS% 4.3 % (0.0-10.0); HEMATOCRIT 34.5 % (37.0-47.0); HEMOGLOBIN 10.7 g/dL (12.0-16.0); LYMPH# 1.42 X1000 (1.2-3.4); LYMPH% 34.3 % (20.5-51.1); MCH 26.6 PG (27-31); MCV 85.8 FL (81-99); MONO# 0.36 X1000 (0.11-0.59); MONO% 8.7 % (1.7-9.3); NEUT% 52.5 % (42.2-75.2); PLT 98 X1000 (130-400); RBC 4.02 XMIL (4.2-5.4)
[2016-12-18 05:15] LABS: URINE CULTURE NEEDED? NO; URINE MICRO REVIEW NEEDED? NO; URINE SOURCE CATH
[2016-12-18 05:29] LABS: AGAP 7; BUN 7 mg/dL (8-22); CALCIUM 8.9 mg/dL (8.8-10.2); CHLORIDE 105 mmol/L (98-107); COSMO 280; POTASSIUM 3.6 mmol/L (3.5-5.1); SODIUM 141 mmol/L (136-145); TCO2 29 mmol/L (25-35)
[2016-12-18 05:32] LABS: BILIRUBIN URINE NEGATIVE (NEGATIVE); BLOOD URINE NEGATIVE (NEGATIVE); COLOR YELLOW; GLUCOSE URINE NEGATIVE (NEGATIVE); LEUKOCYTES URINE NEGATIVE (NEGATIVE); NITRITE URINE NEGATIVE (NEGATIVE); PH URINE 7.5; PROTEIN URINE NEGATIVE (NEGATIVE); SP GRAVITY URINE 1.009; TURBIDITY URINE CLEAR (CLEAR); UROBILINOGEN URINE NORMAL (NORMAL)
[2016-12-18 05:33] LABS: UR EPITHELIAL CELLS <10 /HPF (<10); URINE BACTERIA NEGATIVE /HPF; URINE RBC <10 /HPF (<10); URINE WBC <10 /HPF (<10)
[2016-12-18 07:34] LABS: MANUAL DIFF NEEDED? NO
[2016-12-18 07:55] VITALS: BP 158/81
[2016-12-18] MEDS: PRINIVIL PEG SCH (09:29)
[2016-12-18] MEDS: MIRALAX PEG SCH (09:29)
[2016-12-18] MEDS: NUEDEXTA 20-10 MG CAPSULE MISC SCH (09:29)
[2016-12-18] MEDS: LOVENOX SUBQ SCH (09:30)
[2016-12-18] MEDS: MACROBID PEG SCH (09:30)
[2016-12-18] MEDS: ATIVAN PO SCH (09:30)
[2016-12-18] MEDS: NORVASC PEG SCH (09:30)
[2016-12-18] MEDS: VITAMIN D PO SCH (09:30)
[2016-12-18] MEDS: KEPPRA LIQUID PEG SCH (09:32)
[2016-12-18] MEDS: NS 1,000 ML IV SCH (10:43)
--- NOTE | 2016-12-18 19:35 | DISCHARGE SUMMARY ---
ADMISSION DATE: 12/05/2016 DISCHARGE DATE: 12/18/2016 FINAL DIAGNOSES: 1. Urinary tract infection resistant to medications. 2. PEG tube dysfunction, now working. 3. Status post brain tumor with seizures and cerebrovascular accident postop. Please see medication list. HISTORY OF PRESENT ILLNESS: The patient is nonverbal. Family noticed a change in color of her urine and she has had a Melissa catheter in since July. She was not as responsive. She cannot talk to you but she opens her eyes. She is now more alert. He came to the hospital with a urinary tract infection and she had white blood cells too numerous to count, 4+ bacteria. There was some concern about sepsis but blood cultures were negative. Consultation was made with Dr. Emmy Cornell, her supervisor histology who replaced her PEG tube. Patient also has hypertension as well as seizure disorder and status post brain cancer. She grew out E. coli. She was placed on cefazolin IV and a central line was placed. She saw improvement of her urinary tract infection but continued to have pyuria and a low-grade fever. She was recultured and she grew out Enterococcus resistant to both ampicillin and to vancomycin. I placed her on Macrobid as the E. coli had been sensitive to it as well and it turns out that the Enterococcus was sensitive to it. We removed her Melissa catheter today a catheterized urine specimen shows her urine to be clear though it says she is growing a gram-negative gabby and needs more incubation. It may be the E coli. The patient still has a low-grade fever of 99.6 degrees Fahrenheit but she is going to a facility under hospice care and we will continue her Macrobid for another 15 days at 100 mg per PEG b.i.d. She does seem more alert. I think she is improving with this. Taking the Melissa catheter out was necessary. We will try to control her incontinence without the Melissa catheter. If she shows any skin breakdown, then we will have to make a decision at that time. PHYSICAL EXAMINATION: General: She is a debilitated, black female, who does not move much. She does open up her eyes. HEENT: She is normocephalic except for the fact that she has had brain surgery. Lungs: Clear to auscultation and percussion without rhonchi, rales, or wheezes. Heart: Regular rate and rhythm without murmurs, gallops, or friction rubs. Abdomen: Soft. Active bowel sounds. No organomegaly or tenderness. Neurological Examination: Shows deficits from her brain surgery and CVA. DISPOSITION: We will discharge her on her regular medications to the facility plus the Macrobid. We will see her back in my office after she gets out of the facility. cc: Felton Ferguson Jr, MD
== END 2016-12-18 11:13 | disposition home or self-care (01) ==
LOC: ED 14:07 → ICU 22:24 → SUATTDRO 22:24 → 3S 12-06 00:58
PROVIDERS: ADMIT Emergency Medicine; ATTEND Emergency Medicine